=== PATIENT | female | born 1990 | race Caucasian/White ===

== ENCOUNTER 2018-09-02 12:42 | Emergency (ER) | payer MEDICAID, SELFPAY ==
[2018-09-02 12:42] VITALS: BP 124/88; PULSE 102; RESP 19; TEMP 36.6; O2SAT 99; BMI 19.9
--- NOTE | 2018-09-02 13:06 | EKG12_ITS ---
Test Reason : SOB Blood Pressure : / mmHG Vent. Rate : 106 BPM Atrial Rate : 106 BPM P-R Int : 122 ms QRS Dur : 076 ms QT Int : 334 ms P-R-T Axes : 083 096 083 degrees QTc Int : 443 ms Sinus tachycardia Right atrial enlargement Rightward axis Pulmonary disease pattern Nonspecific T wave abnormality Abnormal ECG Confirmed by SARBJIT WILEY, JORGE ([id number]), editorial intern DEVANG SAN ([id number]) on 09/04/2018 9:19:15 AM Referred By: LENORE Confirmed By:JORGE SCHAFFER MD
[2018-09-02] MEDS: Ketorolac 30 MG/ML Syringe IV (13:34)
[2018-09-02] MEDS: 0.9% Normal Saline 1,000 ML 1000 ML IV (13:34)
[2018-09-02] MEDS: Ondansetron 4 MG/2 ML Vial IV (13:34)
[2018-09-02] MEDS: Mag Hydrox/Al Hydrox/Simeth 30 ML UDC PO (13:34)
[2018-09-02 13:35] VITALS: O2SAT 97
--- NOTE | 2018-09-02 13:40 | RAD_ITS ---
STUDY: X-RAY CHEST REASON FOR EXAM: Female, 27 years old. Shortness of breath. TECHNIQUE: Single AP portable view of the chest. COMPARISON: Comparison is made with prior study dated November 16, 2012. FINDINGS: EKG electrodes are seen. The lungs are clear and expanded. There is no demonstrated pleural abnormality. Normal size heart. Normal mediastinum and adolfo. Normal visualized pulmonary arteries. Normal visualized aortic arch and descending thoracic aorta. Normal visualized thoracic spine. Normal visualized ribs, clavicles, and shoulders. There is no demonstrated abnormality of the visualized soft tissue structures of the upper abdomen. RAD/Chest 1 View (Portable) IMPRESSION: Normal x-ray examination of the chest. Electronically Signed: Xavi Ragland, at 14:09 EDT , Service support ,
[2018-09-02 13:42] LABS: Absolute Lymphocyte Count 2.06 X10^3/ul (0.83-4.51); Absolute Neutrophil Count 5.8 X10^3/uL (2.0-7.7); Basophil# 0.07 X10^3/uL; Basophil% 0.8 % (0-1); Eosinophil# 0.47 X10^3/uL; Eosinophils% 5.2 % (0-5); Hematocrit 38.5 % (37-47); Lymphocyte # 2.06 X10^3/ul (4.0); Lymphocyte % 22.9 % (19-41); Mean Corp Hgb Conc 33.8 g/gl (32-36); Mean Corpuscular Hgb 29.3 pg (27.0-32.0); Mean Corpuscular Volume 86.7 fL (81-99); Mean Platelet Vol. 9.8 fl (6.2-12.0); Monocyte# 0.58 X10^3/uL; Monocyte% 6.5 % (0-10); Neutrophil # 5.79 X10^3/uL (2.7-7.7); Neutrophil % 64.5 % (47-70); Platelet Count 394 K/mm3 (150-450); RBC Distribution Width CV 12.9 % (11.6-14.6); RBC Distribution Width SD 41.2 fl (35.1-43.9); Red Blood Count 4.44 M/mm3 (4.2-5.4)
[2018-09-02 13:43] LABS: POSITIVE COUNT NO; POSITIVE DIFFERENTIAL NO; POSITIVE MORPHOLOGY NO
[2018-09-02 13:55] LABS: Anion Gap 4 (5-15); BUN 11 mg/dL (7-18); BUN/Creat Ratio 11.9 RATIO (10-20); Calcium,Total 8.6 mg/dL (8.5-10.1); Chloride 110 mmol/L (98-107); Creatinine, Serum 0.93 mg/dL (0.55-1.02); EST Glomerular Filtration Rate 76 mL/min (>60); Est Glom Filt Rate - Afr Amer 91 mL/min (>60); Estimated Creatinine Clearance 69.67 ml/min; Glucose 108 mg/dL (74-106); Potassium 3.7 mmol/L (3.5-5.1); Sodium Level 140 mmol/L (136-145)
[2018-09-02 13:57] LABS: Internal QC Validated? YES +Cl - CLEAR BKGD; Pregnancy, Serum, hCG Quali. NEGATIVE Negative
--- NOTE | 2018-09-02 14:20 | ED.VISSUMM ---
- ER Visit Summary Date of Service: 09/02/18 Chief Complaint: Shortness of breath History of Present Illness: The patient is a 27 F with no primary care physician. She reports that approximately 12 hours ago she hiccuped and since then has been belching constantly. She reports that she is mildly short of breath from this. She also reports she has a burning chest pain for the past 4 hours that is constant. It is 10 out of 10 worsening of 10 currently. Is worsened by nothing relieved by nothing. She is never had anything like this before. Physical Examination: Vitals: Stable. Afebrile. General: Well-nourished and well-developed. Head: Normocephalic atraumatic. Neck: Supple, no lymphadenopathy. No JVD. Nontender. Cardiovascular: Regular rate and rhythm. No murmurs. Respiratory: No respiratory distress. Clear to auscultation bilaterally. Abdominal: Soft, nontender, nondistended, normal bowel sounds. No guarding, rebound, or peritoneal signs. Back: Nontender. Extremities: Nontender, no edema. Skin: Normal color, no rash. Neurologic: Alert and oriented ?3. Cranial nerves II through XII are intact. Normal strength and sensation. Psych: Normal affect. Test Results: EKG sinus tach [address] changes. CBC shows eosinophils of 5.2. Chem-7 shows a chloride of 110 and glucose 108. Patency test is negative. Chest x-ray is normal. Emergency Department Course and Treatment: While in the room with the patient she is frequently swallowing air and burping. I gave her Toradol and Zofran IV and a GI cocktail p.o. with no relief. She was given Thorazine and Benadryl IV. She is now resting comfortably. Treatment Plan: Patient be discharged instructions follow-up Dr. Montalvo in 1 to 2 days if not improving. Return to the emergency department for any worsening symptoms. Disposition: To home in improved and stable condition. Impression: 1. Repeated burping, uncertain cause. This note was generated with [employer] dictation software. It may contain incorrect words, spelling, and punctuation that were not noted in review of the chart prior to signing ED Disposition - Plan for ED Patient: Disposition: Home or Assisted Living Instructions: ED Gas Bloating Referrals: Franklin Moulton MD [STAFF PHYSICIAN] - 1-2 Days if not improving
[2018-09-02 14:35] VITALS: BP 137/80; PULSE 84; RESP 26; O2SAT 98
[2018-09-02 15:14] VITALS: BP 114/67; PULSE 90; RESP 17; O2SAT 100
[2018-09-02 15:41] VITALS: BP 108/64; PULSE 95; RESP 15; O2SAT 98
--- NOTE | 2018-09-02 15:41 | ED.RN ---
PT GIVEN WRITTEN AND VERBAL DISCHARGE INSTRUCTIONS.EDUCATED ON DIETARY CHANGES TO AVOID GAS. PT VERBALIZES UNDERSTANDING AND DENIES ANY FURTHER QUESTIONS. PT IV D/C AND OVERED WITH 2X2 GAUZE AND PAPER TAPE. PT DROWSY BUT REFUSES WHEELCHAIR. HE ASSISTS PT IN DRESSING.
== END 2018-09-02 15:55 | disposition home or self-care (01) ==
LOC: ED 13:36
PROVIDERS: Emergency Provider Emergency Medicine
DX: R14.2 Eructation (principal); R07.9 Chest pain, unspecified; R11.0 Nausea; R06.00 Dyspnea, unspecified; F17.210 Nicotine dependence, cigarettes, uncomplicated
CPT/HCPCS: 71045; 80048; 84703; 85025; 93005; 96361; 96374; 96375; 99283; J7030; A4216; J2405; J3490

== ENCOUNTER 2018-09-14 14:54 | Emergency (ER) | payer MEDICAID, SELFPAY ==
[2018-09-14] VITALS (7 sets, daily range): BP systolic 112–131; BP diastolic 65–76; PULSE 78–100; RESP 14–18; TEMP 36; O2SAT 96–100; BMI 19.5
[2018-09-14] MEDS: LORazepam 1 MG Tablet PO (16:10)
[2018-09-14 16:22] LABS: Absolute Lymphocyte Count 1.89 X10^3/ul (0.83-4.51); Absolute Neutrophil Count 9.8 X10^3/uL (2.0-7.7); Basophil# 0.06 X10^3/uL; Basophil% 0.5 % (0-1); Eosinophil# 0.34 X10^3/uL; Eosinophils% 2.7 % (0-5); Hematocrit 37.5 % (37-47); Hemoglobin 12.7 g/dl (12.0-15.0); Lymphocyte # 1.89 X10^3/ul (4.0); Mean Corp Hgb Conc 33.9 g/gl (32-36); Mean Corpuscular Hgb 29.3 pg (27.0-32.0); Mean Corpuscular Volume 86.4 fL (81-99); Mean Platelet Vol. 10.2 fl (6.2-12.0); Monocyte# 0.54 X10^3/uL; Monocyte% 4.3 % (0-10); Neutrophil # 9.79 X10^3/uL (2.7-7.7); Neutrophil % 77.3 % (47-70); POSITIVE COUNT NO; POSITIVE DIFFERENTIAL NO; POSITIVE MORPHOLOGY NO; Platelet Count 329 K/mm3 (150-450); RBC Distribution Width CV 13.1 % (11.6-14.6); RBC Distribution Width SD 41.8 fl (35.1-43.9); Red Blood Count 4.34 M/mm3 (4.2-5.4); White Blood Count 12.6 K/mm3 (4.4-11.0)
[2018-09-14 16:23] LABS: Anion Gap 8 (5-15); BUN 9 mg/dL (7-18); BUN/Creat Ratio 9.7 RATIO (10-20); Calcium,Total 8.8 mg/dL (8.5-10.1); Chloride 106 mmol/L (98-107); Creatinine, Serum 0.93 mg/dL (0.55-1.02); EST Glomerular Filtration Rate 75 mL/min (>60); Est Glom Filt Rate - Afr Amer 91 mL/min (>60); Estimated Creatinine Clearance 68.39 ml/min; Glucose 83 mg/dL (74-106); Potassium 3.3 mmol/L (3.5-5.1); Sodium Level 140 mmol/L (136-145)
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
[2018-09-14 17:28] LABS: Internal QC Validated? YES +Cl - CLEAR BKGD; Pregnancy, Serum, hCG Quali. NEGATIVE Negative
--- NOTE | 2018-09-14 19:00 | CM.ED ---
Social Work Telephone call from [place] [facility], Patient has been accepted. Notified Dr. De Paz and GUILLERMINA Mendieta. Dr. De Paz completing [facility] at this time. Will fax [facility] when obtained. Lise HUNT, JULIA
--- NOTE | 2018-09-14 19:03 | CM.ED ---
Social Work Attempted to notify patient of plan and transition to [facility], Patient sleeping and unable to be aroused at this time. Lise Santana MSW, JULIA
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
--- NOTE | 2018-09-14 19:19 | ED.RN ---
Attempted to call report no one available at this time.
--- NOTE | 2018-09-14 19:47 | ED.RN ---
CALLED [facility], RUDDY CAREY ACCPETED AND GAVE AN ETA OF [id number] 09/15/18
--- NOTE | 2018-09-14 19:52 | CM.ED ---
Social Work Needed clinical information faxed along with pink slip to [facility]. Lise Santana MSW, JULIA
--- NOTE | 2018-09-14 19:58 | CM.ED ---
Social Work Attempted to updated patient. Patient now awake. This medical social worker updating patient on plan for patient to transition to [facility]. Patient voicing understanding and agreeable to plan. GILBERT Akbar, JULIA
[2018-09-14 20:02] LABS: Amphetamine Urine VISTA POSITIVE (<1000 ng/mL); Barbiturate Urine VISTA NEGATIVE (< 200 ng/mL); Benzodiazepine Urine VISTA NEGATIVE (< 200 ng/mL); Cocaine Urine VISTA NEGATIVE (< 300 ng/mL); Ecstacy Urine VISTA NEGATIVE (< 500 ng/mL); Methadone Urine VISTA NEGATIVE (< 300 ng/mL); PCP Urine VISTA NEGATIVE (< 25 ng/mL); THC Urine VISTA POSITIVE (< 50 ng/mL); Vista UDS pH Range 6
[2018-09-15] VITALS (8 sets, daily range): BP systolic 108–114; BP diastolic 67–78; PULSE 68–79; RESP 14–17; O2SAT 96–98
== END 2018-09-15 08:41 ==
LOC: ED 16:02
PROVIDERS: Emergency Provider Emergency Medicine
DX: R45.851 Suicidal ideations (principal); F41.9 Anxiety disorder, unspecified; F32.9 Major depressive disorder, single episode, unspecified; F12.90 Cannabis use, unspecified, uncomplicated; Z72.0 Tobacco use
CPT/HCPCS: 80048; 80307; 80320; 84703; 85025; 99284; G0480

== ENCOUNTER 2019-08-18 00:53 | Emergency (ER) | payer MEDICAID, SELFPAY ==
[2018-09-14 14:58] VITALS: BMI 19.5
[2019-08-18 00:54] VITALS: BP 123/87; PULSE 82; RESP 18; TEMP 36.9; O2SAT 98; BMI 21.0
--- NOTE | 2019-08-18 01:03 | CT_ITS ---
STUDY: CT ABDOMEN AND PELVIS WITHOUT CONTRAST REASON FOR EXAM: Female, 28 years old. Left flank pain. History of kidney stones. History of cervical cancer. RADIATION DOSAGE (If Supplied By Facility): CTDIvol = ( 6.05 ) mGy, DLP = ( 272.16 ) mGycm TECHNIQUE: Transaxial images were obtained from the dome of the diaphragm to the symphysis pubis without oral contrast, and without intravenous contrast. Sagittal and coronal images were reconstructed. Individualized dose optimization techniques were used for this CT. COMPARISON: May 05, 2012. FINDINGS: The visualized lung bases are unremarkable. The visualized portions of the heart are within normal limits. Normal liver. Normal gallbladder and extrahepatic biliary system. Normal spleen. Normal pancreas. Normal bilateral adrenal glands. Normal right kidney. 2 mm x 2 mm nonobstructing inferior pole left renal calculus. Normal visualized stomach. Normal small intestine. Portions of the descending colon not well distended limiting evaluation. The appendix is well visualized and appears normal. Normal abdominal aorta. Normal inferior vena cava. Normal retroperitoneum. No intra-abdominal free air. Normal urinary bladder. IUD centrally located within the uterus. Limited evaluation of the cervix on this noncontrast enhanced study. No adnexal masses seen. Normal abdominal wall. Normal osseous structures. CT/Abdomen/Pelvis without Cont IMPRESSION: Small nonobstructing left renal calculus. No evidence of bowel obstruction. Limited evaluation of the descending colon. Electronically Signed: Maximo Bess MD at 2:19 EDT , Service support ,
--- NOTE | 2019-08-18 01:03 | ED.VIS.GEN ---
History of Present Illness Chief Complaint: Flank Pain Narrative: Patient is a 28-year-old female who presents with left flank pain. It is been present for 1 day and gradually been worsening. She now complains of severe cramping pain in the left lower back. This does radiate around to the flank. She has a history of prior kidney stones. She states she vomited once due to pain. No dysuria frequency urgency. Her pain is worse with palpation or certain movements. She otherwise denies any recent illness. No fevers. Past Medical History - Allergies and Home Meds Allergies/Adverse Reactions: Allergies No Known Allergies Allergy (Verified 08/18/19 00:54) Primary Care Physician: Care Physician,No Primary [Primary Care Provider] - Past Medical History: - - Depression and anxiety Smoking Status: Current every day smoker Review of Systems All systems negative except as indicated General: Denies: Fever Eyes: Denies: Visual changes - bilaterally ENT: Denies: Bilateral ear pain Cardiovascular: Denies: Chest pain Respiratory: Denies: Dyspnea Gastrointestinal: Reports: Abdominal pain, Nausea, Vomiting Genitourinary: Denies: Dysuria, Hematuria, Frequency Musculoskeletal: Reports: Back pain Skin: Denies: Rash Neurological: Denies: Headache Hematologic: Denies: Easy bleeding Allergy: Denies: Uticaria Physical Exam Vital Signs/Narrative: Vital Signs Temp Pulse Resp BP Pulse Ox 08/18/19 00:54 98.5 F 82 18 123/87 H 98 Inital Vital Signs reviewed: Yes General: Well nourished, Well developed Head: Normocephalic Eyes: EOMI ENT: Moist mucous membranes Neck: Supple Cardiovascular: Regular rate, Regular rhythm Respiratory: No distress, CTA bilaterally Abdomen: Soft, Nontender, Nondistended Back: CVA tenderness - Left CVA tenderness Skin: Normal color Neurological: Alert Psychological: Normal affect Diagnostic/Tx/Re-eval Impressions Abdomen/Pelvis CT 08/18/19 01:03 IMPRESSION: Small nonobstructing left renal calculus. No evidence of bowel obstruction. Limited evaluation of the descending colon. Electronically Signed: Maximo Bess MD at 2:19 EDT , Service support , 08/18/19 01:03 Abdomen/Pelvis without Cont [CT] Stat Laboratory Results 08/18/19 08/18/19 08/18/19 00:58 00:58 01:20 WBC 19.8 H RBC 3.95 L Hgb 11.9 L Hct 36.1 L MCV 91.4 MCH 30.1 MCHC 33.0 RDW Std Deviation 43.2 RDW Coeff of [place] 13.1 Plt Count 320 MPV 10.4 Immature Gran % (Auto) 0.400 Neut % (Auto) 75.1 H Lymph % (Auto) 14.3 L [place] % (Auto) 5.4 Eos % (Auto) 4.3 Baso % (Auto) 0.5 Absolute Neuts (auto) 14.9 H Absolute Lymphs (auto) 2.84 Nucleated RBC % 0 Sodium Potassium Chloride Carbon Dioxide Anion Gap BUN Creatinine Estim Creat Clear Calc Est GFR (MDRD) Af Amer Est GFR (MDRD) Non-Af BUN/Creatinine Ratio Glucose Calcium Urine Color Yellow Urine Clarity Clear Urine pH 6.0 Ur Specific [place] 1.015 Urine Protein Negative Urine Glucose (UA) Normal Urine Ketones Negative Urine Occult Blood 10 H Urine Nitrite Negative Urine Bilirubin Negative Urine Urobilinogen Normal Ur Leukocyte Esterase 25 H Urine RBC 0-5 SEEN Urine WBC 0-5 SEEN Ur Squamous Epith Cells 0-5 SEEN Urine Bacteria 0 SEEN Urine Mucus 0 SEEN Urine Test Negative 08/18/19 01:20 WBC RBC Hgb Hct MCV MCH MCHC RDW Std Deviation RDW Coeff of [place] Plt Count MPV Immature Gran % (Auto) Neut % (Auto) Lymph % (Auto) [place] % (Auto) Eos % (Auto) Baso % (Auto) Absolute Neuts (auto) Absolute Lymphs (auto) Nucleated RBC % Sodium 142 Potassium 3.7 Chloride 109 H Carbon Dioxide 24.0 Anion Gap 9 BUN 9 Creatinine 0.88 Estim Creat Clear Calc 73.93 Est GFR (MDRD) Af Amer 97 Est GFR (MDRD) Non-Af 80 BUN/Creatinine Ratio 10.3 Glucose 98 Calcium 9.0 Urine Color Urine Clarity Urine pH Ur Specific [place] Urine Protein Urine Glucose (UA) Urine Ketones Urine Occult Blood Urine Nitrite Urine Bilirubin Urine Urobilinogen Ur Leukocyte Esterase Urine RBC Urine WBC Ur Squamous Epith Cells Urine Bacteria Urine Mucus Urine Test - Medical Decision Making Patient was given IV fluids, Toradol, Zofran. Labs as above notable for white blood cell count 19.[address] of the abdomen and pelvis is unremarkable. Although the patient does have leukocytosis she does not appear to have any acute infectious or surgical pathology on imaging or laboratory studies. Review of prior records show that she is often had a leukocytosis. She was advised to follow-up with her primary care physician. She has no fever or tachycardia. She is not ill-appearing. However she was advised on specific signs and symptoms to monitor for and understands return for new or worsening symptoms. Patient agreeable to this plan. Patient discharged. ED Disposition - Plan for ED Patient: Disposition: Home or Assisted Living Diagnosis: Left flank pain, Leukocytosis Instructions: ED Flank Pain Uncertain Cause Referrals: Care Physician,No Primary [Primary Care Provider] -
[2019-08-18 01:04] LABS: Bacteria 0 SEEN /hpf (None Seen); Color, Urine Yellow (Yellow); Glucose, Dipstick Normal (Normal); Ketone-Dipstick Negative (Negative); Leukocyte Esterase-Dipstick 25 /ul (Negative); Mucous, Urine 0 SEEN /hpf (<or=2+); Nitrite-Dipstick Negative (Negative); Occult Blood-Urine 10 /ul (Negative); Protein-Dipstick Negative (Negative); Specific Gravity, Urine 1.015 (1.002-1.030); Urine Bilirubin Dipstick Negative (Negative); Urine Clarity Clear (Clear); Urine Urobilinogen Normal (Normal)
[2019-08-18 01:07] LABS: Internal QC Validated? YES +Cl - CLEAR BKGD; Pregnancy, Urine Negative Negative
[2019-08-18 01:15] LABS: Red Blood Cells-Urine 0-5 SEEN /hpf (0-5); Squamous Epithelial Cells - UA 0-5 SEEN /hpf (5-10); White Blood Cells 0-5 SEEN /hpf (0-5)
[2019-08-18] MEDS: Ketorolac 30 MG/ML Syringe IV (01:19)
[2019-08-18] MEDS: Ondansetron 4 MG/2 ML Vial IV (01:19)
[2019-08-18 01:26] LABS: Absolute Lymphocyte Count 2.84 X10^3/uL (0.83-4.51); Absolute Neutrophil Count 14.9 X10^3/uL (2.0-7.7); Basophil% 0.5 % (0-1); Eosinophil# 0.85 X10^3/uL; Eosinophils% 4.3 % (0-5); Hematocrit 36.1 % (37-47); Hemoglobin 11.9 g/dL (12.0-15.0); Lymphocyte # 2.84 X10^3/ul (4.0); Lymphocyte % 14.3 % (19-41); Mean Corpuscular Hgb 30.1 pg (27.0-32.0); Mean Corpuscular Volume 91.4 fL (81-99); Mean Platelet Vol. 10.4 fl (6.2-12.0); Monocyte# 1.07 X10^3/uL; Monocyte% 5.4 % (0-10); NRBC Flagged by Analyzer 0 % (0-5); Neutrophil % 75.1 % (47-70); Platelet Count 320 K/mm3 (150-450); RBC Distribution Width CV 13.1 % (11.6-14.6); RBC Distribution Width SD 43.2 fl (35.1-43.9); Red Blood Count 3.95 M/mm3 (4.2-5.4); White Blood Count 19.8 K/mm3 (4.4-11.0)
[2019-08-18 01:40] LABS: Anion Gap 9 (5-15); BUN 9 mg/dL (7-18); BUN/Creat Ratio 10.3 RATIO (10-20); Chloride 109 mmol/L (98-107); Creatinine, Serum 0.88 mg/dL (0.55-1.02); EST Glomerular Filtration Rate 80 mL/min (>60); Est Glom Filt Rate - Afr Amer 97 mL/min (>60); Estimated Creatinine Clearance 73.93 ml/min; Glucose 98 mg/dL (74-106); Potassium 3.7 mmol/L (3.5-5.1); Sodium Level 142 mmol/L (136-145)
[2019-08-18 02:34] VITALS: BP 98/52; PULSE 57; RESP 16; O2SAT 99
== END 2019-08-18 02:40 | disposition home or self-care (01) ==
PROVIDERS: Emergency Provider Emergency Medicine
DX: R10.9 Unspecified abdominal pain (principal); D72.829 Elevated white blood cell count, unspecified; F17.200 Nicotine dependence, unspecified, uncomplicated; F32.9 Major depressive disorder, single episode, unspecified
CPT/HCPCS: 74176; 80048; 81001; 81025; 85025; 99283; A4216; J2405

== ENCOUNTER → 2019-12-17 21:12 | Outpatient (CLI) | payer MEDICAID, SELFPAY | PROVIDERS: Referring Provider Family Medicine; Visit Provider Family Medicine | DX: Z20.828 Contact with and (suspected) exposure to other viral communicable diseases (principal) | CPT/HCPCS: 87635; U0003 ==

== ENCOUNTER → 2020-01-05 13:00 | Outpatient (CLI) | payer MEDICAID, SELFPAY | PROVIDERS: Referring Provider Family Medicine; Visit Provider Family Medicine | DX: Z03.818 Encounter for observation for suspected exposure to other biological agents ruled out (principal) | CPT/HCPCS: 87635; U0003 ==

== ENCOUNTER 2020-06-14 17:26 | Emergency (ER) | payer MEDICAID, SELFPAY ==
[2020-06-14 17:28] VITALS: BP 117/62; PULSE 69; RESP 14; TEMP 36.9; O2SAT 99; BMI 22.4
[2020-06-14 18:55] VITALS: BP 112/74; PULSE 75; RESP 14; O2SAT 99
[2020-06-14] MEDS: Lidocaine 1% (20 ml mdv) 20 ML Vial INFILT (18:59)
--- NOTE | 2020-06-14 19:01 | ED.DCSUM_ITS ---
History of Present Illness Chief Complaint: Abscess Informant: Patient Onset: Days - Onset 2 to 3 days ago Context: Sudden Onset Timing: Continuous Quality: Pain, swelling and redness Location: Right buttocks Current Severity: Mild Maximum Severity: Moderate Worsened by: Sitting Relieved by: Nothing Associated Symptoms: No systemic symptoms Narrative: Mitesh is a 29-year-old woman who presents with abscess to right buttocks. She denies history diabetes. She is not immune suppressed. She has no traumatic fever, heart murmur mitral prolapse. She denies IV drug use. She denies prior history of abscess. She denies fever, chills night sweats. She is not attempted to drain the area. There is no history of inflammatory bowel disorder. Prior similar symptoms: No Recent Illness/Hospitalization: No - Past Medical History (1) No significant past medical history Status: Acute Past Medical History - Allergies and Home Meds Allergies/Adverse Reactions: Allergies No Known Allergies Allergy (Verified 06/14/20 17:27) Primary Care Physician: Care Physician,No Primary [Primary Care Provider] - Prior records reviewed: No Past Medical History: None Surgical History: no surgical history Lives: Spouse/ Significant Other Smoking Status: Current every day smoker Alcohol: Rare Drugs: None Review of Systems General: Denies: Chills, Fever, Malaise, Sweats ENT: Denies: Bilateral ear pain, Rhinorrhea, Sore throat Cardiovascular: Denies: Chest pain, Palpitations, Heart racing Respiratory: Denies: Dyspnea, Cough, Dyspnea on exertion Gastrointestinal: Denies: Abdominal pain, Nausea, Vomiting Musculoskeletal: Denies: Myalgias, Arthralgias, Neck pain, Back pain, Swelling Skin: Reports: Rash, Abscess Endocrine: Denies: Polyuria, Polydipsia Hematologic: Denies: Easy bruising, Easy bleeding Physical Exam Vital Signs/Narrative: Vital Signs Temp Pulse Resp BP Pulse Ox 06/14/20 18:55 75 14 112/74 99 06/14/20 17:28 98.5 F 69 14 117/62 99 Inital Vital Signs reviewed: Yes General: Well nourished, Well developed, No Acute Distress Head: Normocephalic, Atraumatic Eyes: Perrl, EOMI ENT: Moist mucous membranes Neck: Supple, Nontender, No lymphadenopathy, No JVD Cardiovascular: Regular rate, Regular rhythm, No murmurs, Normal S1, Normal S2 Respiratory: No distress, CTA bilaterally, Chest nontender Rectal: Deferred, - - Does have abscess right buttocks with cellulitis. Diameter is 4 to 5 cm. Back: Nontender, Normal Inspection Extremities: Nontender, No edema Skin: Normal color, No Trauma, Rash. Negative for: Cyanosis, Diaphoresis, Jaundice Neurological: Alert, Oriented x3, Cranial nerves II-XII grossly intact, Normal Strength, Normal Sensation Psychological: Normal affect, Normal Mood Diagnostic/Tx/Re-eval - Medical Decision Making Has what appears to be cellulitis with subcutaneous abscess right buttocks. Patient was informed treatment is incision and drainage. She has been consented. Risk benefits were explained to her. Procedures Procedure(s): Was consented for I&D of right buttocks abscess. Patient was prepped draped sterile manner. The area was Nestabs by local filtration and f ield block. Incision was made with a 10 blade. A 1 cm incision was made. Blunt dissection undertaken with approximately 2 to 3 cc of purulent material noted. Cavity was irrigated. Wick was placed. There is still evidence of surrounding cellulitis. Will treat with p.o. antibiotics. ED Disposition - Plan for ED Patient: Disposition: Home or Assisted Living Diagnosis: Cellulitis and abscess of buttock Instructions: ED Abscess Incision And Drainage, ED Cellulitis Prescriptions: Doxycycline 100 mg PO BID #14 capsule Transmission Status: Pending to [facility] Referrals: Care Physician,No Primary [Primary Care Provider] - Dayanara Diez MD [STAFF PHYSICIAN] - 2 Days for wound check
[2020-06-14 19:23] VITALS: RESP 16
== END 2020-06-14 19:57 | disposition home or self-care (01) ==
PROVIDERS: Emergency Provider Emergency Medicine
DX: L03.317 Cellulitis of buttock (principal); L02.31 Cutaneous abscess of buttock; F17.200 Nicotine dependence, unspecified, uncomplicated
CPT/HCPCS: 10060; 99282

== ENCOUNTER 2021-01-25 10:36 | Emergency (ER) | payer MEDICAID, SELFPAY ==
[2021-01-25 10:37] VITALS: BP 109/61; PULSE 78; RESP 16; TEMP 36.7; O2SAT 98; BMI 24.7
--- NOTE | 2021-01-25 10:53 | RAD_ITS ---
STUDY: X-RAY CHEST REASON FOR EXAM: Female, 30 years old. Chest pain TECHNIQUE: Single AP portable view of the chest. COMPARISON: Comparison is made with prior study dated 09/02/2018. FINDINGS: Hyperinflation. The lungs are clear. There is no demonstrated pleural abnormality. Normal size heart. Normal mediastinum and adolfo. Normal visualized pulmonary arteries. Normal visualized aortic arch and descending thoracic aorta. Normal visualized thoracic spine. Normal visualized ribs, clavicles, and shoulders. There is no demonstrated abnormality of the visualized soft tissue structures of the upper abdomen. RAD/Chest 1 View (Portable) IMPRESSION: Hyperinflation. Electronically Signed: Xavi Ragland MD at 11:54 EDT , Service support ,
--- NOTE | 2021-01-25 10:54 | EKG12_ITS ---
Test Reason : Blood Pressure : / mmHG Vent. Rate : 070 BPM Atrial Rate : 070 BPM P-R Int : 108 ms QRS Dur : 078 ms QT Int : 402 ms P-R-T Axes : 073 085 044 degrees QTc Int : 434 ms Sinus rhythm with short KS Low voltage QRS Borderline ECG Confirmed by PHI WILEY, AMANDO ([id number]), subeditor RIZWANA VINES ([id number]) on 01/29/2021 10:13:59 A M Referred By: RAFFI Confirmed By:ANISA YIP MD
--- NOTE | 2021-01-25 10:55 | EX.ED.DYSGE1 ---
HPI History of Present Illness Chief Complaint: Nausea/Vomiting Informant: patient Narrative Narrative: 30-year-old female presents the emergency department with chest pain nausea and vomiting at 22 weeks gestation with twins. She denies any fevers. She notes that she has a slight cough and mild rhinorrhea that began this morning. No diarrhea. No fevers. She sees Dr. Hurley for obstetrics. She denies any significant leg swelling. There is no been any reported complications with this . She describes the pain as sharp and over the left side of her chest. Seems to be worse with dry heaving and cough. She states it feels different than her acid reflux which she had yesterday which was more towards the center of her chest she reports feeling nauseated most of the morning PFSH PFSH Home Medications doxycycline monohydrate 100 mg PO BID #14 capsule 06/14/20 [Rx Last Taken Unknown] ondansetron 4 mg PO Q6H PRN PRN #15 tab 01/25/21 [Rx Last Taken Unknown] Allergy/AdvReac Type Severity Reaction Status Date / Time No Known Allergies Allergy Verified 01/25/21 10:37 Social History (Updated 01/25/21 @ 10:[address] Ronny Crews, DO) Smoking Status: Former smoker substance use type: does not use ROS ROS ED Constitutional Constitutional ED: Denies chills, fever(s) or weight loss Eyes Eyes: Denies change in vision or diplopia ENT ENT ED: Reports rhinorrhea; Denies ear pain or sore throat Cardiovascular Cardiovascular: Reports chest pain; Denies orthopnea, palpitations or racing heartbeat Respiratory/Chest Respiratory/Chest: Reports cough; Denies dyspnea or orthopnea Gastrointestinal Gastrointestinal: Reports nausea and vomiting; Denies abdominal pain or diarrhea Genitourinary Genitourinary ED: Denies dysuria, hematuria or urinary frequency Musculoskeletal Musculoskeletal: Denies arthralgias or myalgias Integumentary Denies abscess or rash Neurologic Neurologic: Denies headache(s) or weakness Psychiatric Psychiatric: Denies anxiety, depression, suicidal ideation or suicidal thoughts Endocrine Endocrinology: Denies polydipsia, polyphagia or polyuria Allergic/Immunologic Allergic/Immunologic ED: Denies mouth swelling, tongue swelling or urticaria EXAM Physical Exam Const Vital Signs: 01/25/21 10:37 01/25/21 12:11 01/25/21 12:14 Temperature 98.1 F Temperature Source Temporal Pulse Rate 78 63 Respiratory Rate 16 17 Blood Pressure 109/61 89/57 L 92/51 L Blood Pressure Mean 77 67 64 Pulse Ox 98 97 Oxygen Delivery Method Room Air Room Air 01/25/21 13:23 Temperature Temperature Source Pulse Rate 68 Respiratory Rate 20 H Blood Pressure 99/57 L Blood Pressure Mean 71 Pulse Ox 100 Oxygen Delivery Method Room Air Positive well nourished and well developed General Appearance ED: well developed HEENT Reports normocephalic, head/scalp atraumatic, TM's clear and moist mucous membranes Negative for trauma Tympanic Membrane ED: Yes TM's clear Eyes PERRL and EOMs intact bilaterally Neck no lymphadenopathy, supple and no JVD Chest Wall Chest Narrative: Tender palpation left anterior chest wall Resp normal respiratory effort and clear to auscultation bilaterally Cardio regular rate, regular rhythm and no murmurs GI normal to inspection, nondistended, normoactive bowel sounds and non-tender Palpation: soft Back/Spine no CVA tenderness and normal ROM Extremity normal to inspection General Extremety ED: Negative for edema General Extremity: Negative for edema Neuro oriented x3 and CN's II-XII intact bilaterally Sensorium / Orientation: alert Motor Exam: strength 5/5 throughout Psych mental status grossly normal Mood & Affect: Negative for depressed or tearful Skin no rashes or lesions noted and no wounds MDM MDM MDM Narrative Medical decision making narrative: Patient received IV fluids and Zofran. Hemoglobin 10.5 white count 9.9. Troponin was 3. EKG is normal sinus rhythm. CMP negative. Urinalysis very minimal ketones and no obvious infection. Patient is feeling better on repeat examination I do not think that she has PE. Do not think she has dissection. I do not see evidence of ACS. Patient will be discharged home Lab Data Attestation: I reviewed the patient's lab results. Labs: Laboratory Results - last 24 hr 01/25/21 01/25/21 01/25/21 11:00 11:00 11:00 WBC 9.9 RBC 3.51 L Hgb 10.5 L Hct 31.5 L MCV 89.7 MCH 29.9 MCHC 33.3 RDW Std Deviation 42.8 RDW Coeff of Sterling 13.1 Plt Count 268 MPV 10.8 Immature Gran % (Auto) 0.500 Neut % (Auto) 77.6 H Lymph % (Auto) 14.9 L Baker % (Auto) 5.5 Eos % (Auto) 1.0 Baso % (Auto) 0.5 Absolute Neuts (auto) 7.7 Absolute Lymphs (auto) 1.48 Nucleated RBC % 0 Sodium 138 Potassium 3.8 Chloride 106 Carbon Dioxide 23.0 Anion Gap 9 BUN 6 L Creatinine 0.58 Estim Creat Clear Calc 110.13 Est GFR (MDRD) Af Amer 153 Est GFR (MDRD) Non-Af 127 BUN/Creatinine Ratio 10.3 Glucose 82 Calcium 8.4 L Total Bilirubin 0.40 AST 13 L ALT 10 L Alkaline Phosphatase 50 Troponin I High Sens 3 Total Protein 6.7 Albumin 2.9 L Globulin 3.8 Albumin/Globulin Ratio 0.8 L Lipase 69 L Urine Color Urine Clarity Urine pH Ur Specific [place] Urine Protein Urine Glucose (UA) Urine Ketones Urine Occult Blood Urine Nitrite Urine Bilirubin Urine Urobilinogen Ur Leukocyte Esterase Urine RBC Urine WBC Ur Squamous Epith Cells Urine Bacteria Urine Mucus 01/25/21 11:15 WBC RBC Hgb Hct MCV MCH MCHC RDW Std Deviation RDW Coeff of Sterling Plt Count MPV Immature Gran % (Auto) Neut % (Auto) Lymph % (Auto) Baker % (Auto) Eos % (Auto) Baso % (Auto) Absolute Neuts (auto) Absolute Lymphs (auto) Nucleated RBC % Sodium Potassium Chloride Carbon Dioxide Anion Gap BUN Creatinine Estim Creat Clear Calc Est GFR (MDRD) Af Amer Est GFR (MDRD) Non-Af BUN/Creatinine Ratio Glucose Calcium Total Bilirubin AST ALT Alkaline Phosphatase Troponin I High Sens Total Protein Albumin Globulin Albumin/Globulin Ratio Lipase Urine Color Straw Urine Clarity Clear Urine pH 7.0 Ur Specific [place] 1.010 Urine Protein Negative Urine Glucose (UA) Normal Urine Ketones 5 H Urine Occult Blood Negative Urine Nitrite Negative Urine Bilirubin Negative Urine Urobilinogen Normal Ur Leukocyte Esterase Negative Urine RBC 0 SEEN Urine WBC 0-5 SEEN Ur Squamous Epith Cells 0-5 SEEN Urine Bacteria 0 SEEN Urine Mucus 0 SEEN Radiography Diagnostic Testing: Clinical Impression(s) from Imaging Studies Chest X-Ray 01/25/21 10:53 IMPRESSION: Hyperinflation. Electronically Signed: Xavi Ragland MD at 11:54 EDT , Service support , Discharge Plan Triage Chief Complaint: Nausea/Vomiting ED Provider: Ronny Crews Dx/Rx/DC Orders Clinical Impression: Twin in second trimester, Vomiting, Chest pain Instructions: ED Chest Pain, Noncardiac Prescriptions: New ondansetron [ondansetron] 4 MG tablet 4 mg PO Q6H PRN PRN (Reason: Nausea) Qty: 15 RF: 0 No Action doxycycline monohydrate 100 MG capsule 100 mg PO BID Qty: 14 RF: 0 Primary Care Provider: Care Physician,No Primary Referrals: Laura Hurley MD [STAFF PHYSICIAN] - Keep [facility] appointment Care Physician,No Primary [Primary Care Provider] - Disposition Disposition: Home, Self Care
[2021-01-25 11:13] LABS: Absolute Lymphocyte Count 1.48 X10^3/uL (0.83-4.51); Absolute Neutrophil Count 7.7 X10^3/uL (2.0-7.7); Basophil# 0.05 X10^3/uL; Basophil% 0.5 % (0-1); Hematocrit 31.5 % (37-47); Hemoglobin 10.5 g/dL (12.0-15.0); Lymphocyte # 1.48 X10^3/ul (0.83-4.51); Lymphocyte % 14.9 % (19-41); Mean Corp Hgb Conc 33.3 g/dL (32-36); Mean Corpuscular Hgb 29.9 pg (27.0-32.0); Mean Corpuscular Volume 89.7 fL (81-99); Mean Platelet Vol. 10.8 fl (6.2-12.0); Monocyte# 0.55 X10^3/uL; Monocyte% 5.5 % (0-10); NRBC Flagged by Analyzer 0 % (0-5); Neutrophil # 7.69 X10^3/uL (2.7-7.7); Neutrophil % 77.6 % (47-70); Platelet Count 268 K/mm3 (150-450); RBC Distribution Width CV 13.1 % (11.6-14.6); RBC Distribution Width SD 42.8 fl (35.1-43.9); Red Blood Count 3.51 M/mm3 (4.2-5.4); White Blood Count 9.9 K/mm3 (4.4-11.0)
[2021-01-25 11:21] LABS: Bacteria 0 SEEN /hpf (None Seen); Mucous, Urine 0 SEEN /hpf (<or=2+); Red Blood Cells-Urine 0 SEEN /hpf (0-5)
[2021-01-25 11:22] LABS: Color, Urine Straw (Yellow); Glucose, Dipstick Normal (Normal); Ketone-Dipstick 5 mg/dl (Negative); Leukocyte Esterase-Dipstick Negative /ul (Negative); Nitrite-Dipstick Negative (Negative); Occult Blood-Urine Negative /ul (Negative); Protein-Dipstick Negative (Negative); Urine Bilirubin Dipstick Negative (Negative); Urine Clarity Clear (Clear); Urine Urobilinogen Normal (Normal)
[2021-01-25 11:29] LABS: ALB/GLOB Ratio 0.8 RATIO (0.9-2.4); AST(SGOT) 13 U/L (15-37); Alanine Aminotransfer ALT/SGPT 10 U/L (13-56); Albumin, Serum 2.9 g/dL (3.2-5.0); Alkaline Phosphatase 50 U/L (45-117); Anion Gap 9 (5-15); BUN 6 mg/dL (7-18); BUN/Creat Ratio 10.3 RATIO (10-20); Calcium,Total 8.4 mg/dL (8.5-10.1); Chloride 106 mmol/L (98-107); Creatinine, Serum 0.58 mg/dL (0.55-1.02); EST Glomerular Filtration Rate 127 mL/min (>60); Est Glom Filt Rate - Afr Amer 153 mL/min (>60); Estimated Creatinine Clearance 110.13 ml/min; Globulin 3.8 g/dL (2.2-4.2); Glucose 82 mg/dL (74-106); Lipase 69 U/L (73-393); Potassium 3.8 mmol/L (3.5-5.1); Protein, Total 6.7 g/dL (6.4-8.2); Sodium Level 138 mmol/L (136-145)
[2021-01-25 11:52] LABS: Squamous Epithelial Cells - UA 0-5 SEEN /hpf (5-10); White Blood Cells 0-5 SEEN /hpf (0-5)
[2021-01-25] MEDS: Ondansetron 4 MG/2 ML Vial IV (12:08)
[2021-01-25] MEDS: 0.9% Normal Saline 1,000 ML 1000 ML IV (12:08)
[2021-01-25 12:11] VITALS: BP 89/57; PULSE 63; RESP 17; O2SAT 97
[2021-01-25 12:14] VITALS: BP 92/51
[2021-01-25 13:23] VITALS: BP 99/57; PULSE 68; RESP 20; O2SAT 100
[2021-01-25 13:35] LABS: Troponin-I HS 3 pg/mL (3.0-54.0)
[2021-01-25 13:58] VITALS: BP 97/61
== END 2021-01-25 13:58 | disposition home or self-care (01) ==
PROVIDERS: Emergency Provider Emergency Medicine
DX: O21.2 Late vomiting of pregnancy (principal); O30.002 Twin pregnancy, unspecified number of placenta and unspecified number of amniotic sacs, second trimester; O99.612 Diseases of the digestive system complicating pregnancy, second trimester; K21.9 Gastro-esophageal reflux disease without esophagitis; O26.892 Other specified pregnancy related conditions, second trimester; R07.9 Chest pain, unspecified; Z87.891 Personal history of nicotine dependence; Z3A.22 22 weeks gestation of pregnancy
CPT/HCPCS: 71045; 80053; 81001; 83690; 84484; 85025; 93005; 96361; 96374; 99285; J7030; J2405

== ENCOUNTER 2021-04-04 13:46 | Outpatient (CLI) | payer MEDICAID, SELFPAY ==
[2021-04-04] MEDS: 0.9% Saline Lock 10 ML Syringe IV (13:55)
[2021-04-04 13:56] VITALS: BP 101/66; PULSE 78; RESP 14; TEMP 36.5; O2SAT 100; BMI 26.2
[2021-04-04 14:27] VITALS: BP 95/62; PULSE 73; RESP 16; TEMP 36.9; O2SAT 100
[2021-04-04 15:27] VITALS: BP 91/53; PULSE 72; RESP 16; TEMP 36.7; O2SAT 100
== END 2021-04-04 23:59 | disposition home or self-care (01) ==
LOC: MS3OUT 13:47 → MS3 13:49
PROVIDERS: Referring Provider Nurse Practitioner Adult Health; Visit Provider Nurse Practitioner Adult Health
DX: Z23 Encounter for immunization (principal); U07.1 COVID-19
CPT/HCPCS: J7050; M0245; Q0245; A4216

== ENCOUNTER 2021-04-09 11:35 | Outpatient (CLI) | payer MEDICAID, SELFPAY ==
[2021-04-09 12:04] VITALS: BP 112/61; TEMP 36.4
[2021-04-09 12:05] VITALS: PULSE 95; O2SAT 96
[2021-04-09 12:08] VITALS: BMI 26.2
[2021-04-09] MEDS: Lactated Ringers 1,000 ML 999 ML IV (13:19)
[2021-04-09] MEDS: Betamethasone/Betamethasone 30 MG/5 ML Vial 12 MG IM (13:21)
[2021-04-09 13:35] LABS: Fetal Fibronectin POSITIVE
[2021-04-09 15:23] LABS: Color, Urine Yellow (Yellow); Glucose, Dipstick Normal (Normal); Ketone-Dipstick Negative (Negative); Leukocyte Esterase-Dipstick 25 /ul (Negative); Nitrite-Dipstick Negative (Negative); Occult Blood-Urine Negative /ul (Negative); Protein-Dipstick Negative (Negative); Urine Bilirubin Dipstick Negative (Negative); Urine Clarity Sl. Cloudy (Clear); Urine Urobilinogen Normal (Normal)
[2021-04-09 15:35] LABS: Group B Strep DNA By PCR Negative (Negative); Internal Control PASS; Probe Check PASS; Specimen Processing Control PASS
--- NOTE | 2021-04-11 13:33 | OB.TRI.HP_ITS ---
HPI - General HPI Narrative LIS GALINDO, is a 30 F who presents with di di twins at 32w4d COVID positive with ctx's. She had ctx's all night that have started to space apart. No vb, lof. Good FM x 2. No COVID symptoms currently and feels well. No CP, SOB, cough, fevers. PFSH PFSH Home Medications omeprazole 20 mg PO DAILY 04/04/21 [History Last Taken 04/07/21 08:00] prenat.vits,esha,[id number] [ Vitamin] 1 tab PO DAILY 04/09/21 [H istory Last Taken 04/08/21 15:00] Allergy/AdvReac Type Severity Reaction Status Date / Time No Known Allergies Allergy Verified 04/09/21 15:39 Social History (Updated 01/25/21 @ 10:[address] Ronny Crews, DO) Smoking Status: Former smoker substance use type: does not use History Elective abortions Hx Para 3 Spontaneous abortions Hx # Term Pregnancies Ectopic pregnancies Hx # Pregnancies Multiple births # of living children Physical Exam Const alert and no apparent distress General Appearance: cooperative and comfortable GI soft to palpation and non-tender Extremity normal to inspection NST FHR Rate Baby A Baseline: 130 Variability:: Moderate Accelerations:: 15 x 15 Decelerations:: None NST Reactive:: Yes FHR Rate Baby B Baseline: 135 Variability:: Moderate Accelerations:: 15 x 15 Decelerations:: None NST Reactive:: Yes Assessment & Plan (1) 32 weeks gestation of : PLAN: Patient was observed on labor and delivery for several hours. Cervix was 1 thick and high. FFM was sent and positive. Betamethasone was given. GBS was collected. She was given a fluid bolus. After IV fluid hydration her contractions had spaced apart and symptomatically she was feeling better. She was comfortable appearing and did not appear to be in early labor. Transabdominal ultrasound performed showed baby A in vertex presentation baby B in breech presentation. Had a discussion with the patient regarding mode of delivery should she go into early labor at 32 weeks gestation, and recommended a section given baby B is currently in breech presentation. She was discharged home with follow-up tomorrow in the office for second steroid injection and a visit with a physician. (2) Twin : (3) Uterine contractions: (4) COVID-19:
== END 2021-04-09 23:59 | disposition home or self-care (01) ==
LOC: WPOUT 11:40 → WP 11:41
PROVIDERS: Referring Provider Obstetrics & Gynecology; Visit Provider Obstetrics & Gynecology
DX: O47.03 False labor before 37 completed weeks of gestation, third trimester (principal); O30.043 Twin pregnancy, dichorionic/diamniotic, third trimester; Z87.891 Personal history of nicotine dependence; Z3A.32 32 weeks gestation of pregnancy; O32.1XX2 Maternal care for breech presentation, fetus 2; O98.513 Other viral diseases complicating pregnancy, third trimester; U07.1 COVID-19
CPT/HCPCS: 96360; 59050; 81002; 82731; 87081; 87653; 96372; 99218; J7120; G0378; J0702

== ENCOUNTER 2021-05-15 09:50 | Inpatient (IN) | payer MEDICAID, SELFPAY ==
[2021-05-15] VITALS (54 sets, daily range): BP systolic 78–108; BP diastolic 48–68; PULSE 62–103; TEMP 36.4–37.4; O2SAT 95–100; BMI 27.3
[2021-05-15] MEDS: Lactated Ringers 1,000 ML 50 ML IV (10:30)
[2021-05-15 10:50] LABS: Absolute Lymphocyte Count 1.22 X10^3/uL (0.83-4.51); Absolute Neutrophil Count 6.7 X10^3/uL (2.0-7.7); Basophil# 0.03 X10^3/uL; Basophil% 0.3 % (0-1); Eosinophil# 0.06 X10^3/uL; Eosinophils% 0.7 % (0-5); Hemoglobin 10.8 g/dL (12.0-15.0); Lymphocyte # 1.22 X10^3/ul (0.83-4.51); Lymphocyte % 14.1 % (19-41); Mean Corp Hgb Conc 33.8 g/dL (32-36); Mean Corpuscular Hgb 29.6 pg (27.0-32.0); Mean Corpuscular Volume 87.7 fL (81-99); Mean Platelet Vol. 11.8 fl (6.2-12.0); NRBC Flagged by Analyzer 0 % (0-5); Neutrophil # 6.67 X10^3/uL (2.7-7.7); Neutrophil % 77.3 % (47-70); Platelet Count 204 K/mm3 (150-450); RBC Distribution Width CV 17.2 % (11.6-14.6); Red Blood Count 3.65 M/mm3 (4.2-5.4); White Blood Count 8.6 K/mm3 (4.4-11.0)
[2021-05-15] MEDS: Lactated Ringers 500 ML 999 ML IV ×3 (11:01→15:26)
[2021-05-15] MEDS: fentaNYL-bupivacaine (epidural) 100 ML BAG EPIDURAL ×2 (12:02→16:31)
[2021-05-15] MEDS: 0.9% Saline Lock 10 ML Syringe IV (12:50)
[2021-05-15] MEDS: Oxytocin 30 units/NS 500 ml 30 UNITS/500 ML IV.SOLN IV (13:09)
[2021-05-15] MEDS: Ondansetron 4 MG/2 ML Vial IV (15:20)
[2021-05-15] MEDS: Mag Hydrox/Al Hydrox/Simeth 30 ML UDC PO (16:40)
[2021-05-15] MEDS: Lactated Ringers 1,000 ML 200 ML IV (17:21)
--- NOTE | 2021-05-15 17:29 | HP.PCM.OB_ITS ---
[facility] - General General Date of Admission: 05/15/21 Date of Service: 05/15/21 Chief Complaint: SROM HPI Narrative LIS GALINDO, is a 30 6 para 4-0-1-4 who presents at 37-5/7 weeks with dichorionic diamniotic twin gestation with spontaneous rupture membranes. She denies any vaginal bleeding or leaking fluid. She has had some irregular contractions. Twins have been appropriate for gestational age. is complicated to date by twin gestation, history of previous section with successful VBACs in the past. She has a history of kidney stones. Nicotine use disorder and antepartum anemia as well as abnormal Pap smears Maternal Data Information Final EVAN: 05/31/21 Gestational age: 37 5/7 PFSH [facility] Medical History (Updated 05/15/21 @ 17:[address] Laura Hurley MD) Anxiety HPV (human papilloma virus) infection Vaginal after Home Medications prenat.vits,esha,[id number]-[id number] [ Vitamin] 1 tab PO DAILY 04/09/21 [History Last Taken 05/14/21 21:00] ferrous sulfate 325 mg PO QODAY 05/15/21 [History Last Taken 05/14/21 21:00] Allergy/AdvReac Type Severity Reaction Status Date / Time No Known Allergies Allergy Verified 05/15/21 10:23 Surgical History (Updated 05/15/21 @ 17:[address] Laura Hurley MD) Previous section Social History (Updated 01/25/21 @ 10:[address] Ronny Crews DO) Smoking Status: Current some day smoker tobacco type: cigarettes substance use type: does not use History Elective abortions Hx Para 4 Spontaneous abortions Hx # Term Pregnancies Ectopic pregnancies Hx # Pregnancies Multiple births # of living children ROS Constitutional Constitutional: Denies fatigue, fever(s) or malaise Eyes Eyes: Denies change in vision ENT HEENT: Denies dizziness or headache(s) Cardiovascular Cardiovascular: Denies chest pain, dyspnea or lightheadedness Respiratory/Chest Respiratory/Chest: Denies cough or dyspnea Gastrointestinal Gastrointestinal: Denies change in bowel habits Genitourinary Genitourinary: Denies burning urination or genital lesions Integumentary Integumentary: Denies rash Neurologic Neurologic: Denies confusion, dizziness, headache(s), numbness or weakness Vital Signs Vital Signs Vital Signs: 05/15/21 10:11 05/15/21 10:18 05/15/21 11:46 Temperature 99.3 F H 99.3 F H Temperature Source Temporal Pulse Rate 79 Blood Pressure 104/67 108/68 BP Systolic 104 108 BP Diastolic 67 68 Pulse Ox 98 05/15/21 11:47 05/15/21 11:51 05/15/21 11:52 Temperature Temperature Source Pulse Rate 78 75 84 Blood Pressure 101/66 BP Systolic 101 BP Diastolic 66 Pulse Ox 98 97 05/15/21 11:56 05/15/21 11:57 05/15/21 12:01 Temperature Temperature Source Pulse Rate 78 84 Blood Pressure 103/68 107/62 BP Systolic 103 107 BP Diastolic 68 62 Pulse Ox 96 05/15/21 12:02 05/15/21 12:06 05/15/21 12:07 Temperature Temperature Source Pulse Rate 94 92 Blood Pressure 101/56 L BP Systolic 101 BP Diastolic 56 Pulse Ox 97 98 05/15/21 12:12 05/15/21 12:14 05/15/21 12:16 Temperature Temperature Source Pulse Rate 79 74 80 Blood Pressure 92/54 L 90/53 L BP Systolic 92 90 BP Diastolic 54 53 Pulse Ox 100 05/15/21 12:17 05/15/21 12:21 05/15/21 12:22 Temperature Temperature Source Pulse Rate 75 76 79 Blood Pressure 87/54 L BP Systolic 87 BP Diastolic 54 Pulse Ox 98 98 05/15/21 12:26 05/15/21 12:27 05/15/21 12:31 Temperature Temperature Source Pulse Rate 78 Blood Pressure 94/57 L 92/55 L BP Systolic 94 92 BP Diastolic 57 55 Pulse Ox 97 05/15/21 12:32 05/15/21 12:36 05/15/21 12:37 Temperature Temperature Source Pulse Rate 73 80 84 Blood Pressure 78/48 L BP Systolic 78 BP Diastolic 48 Pulse Ox 99 100 05/15/21 12:41 05/15/21 12:42 05/15/21 12:47 Temperature Temperature Source Pulse Rate 68 68 91 Blood Pressure 96/56 L 81/50 L BP Systolic 96 81 BP Diastolic 56 50 Pulse Ox 99 99 05/15/21 12:51 05/15/21 12:52 05/15/21 12:53 Temperature Temperature Source Pulse Rate 84 85 Blood Pressure 86/53 L 89/52 L BP Systolic 86 89 BP Diastolic 53 52 Pulse Ox 99 05/15/21 12:55 05/15/21 14:10 05/15/21 14:11 Temperature 97.6 F L 97.5 F L Temperature Source Temporal Pulse Rate 78 Blood Pressure BP Systolic BP Diastolic Pulse Ox 100 05/15/21 14:18 05/15/21 15:10 05/15/21 16:05 Temperature 97.7 F L Temperature Source Pulse Rate 75 75 Blood Pressure 100/58 L 93/56 L BP Systolic 100 93 BP Diastolic 58 56 Pulse Ox 05/15/21 16:06 05/15/21 16:07 05/15/21 16:50 Temperature 99.0 F Temperature Source Temporal Temporal Pulse Rate 73 83 72 Blood Pressure 94/50 L 98/53 L BP Systolic 94 98 BP Diastolic 50 53 Pulse Ox 97 05/15/21 16:52 Temperature Temperature Source Pulse Rate 103 H Blood Pressure BP Systolic BP Diastolic Pulse Ox 99 Weight Weight: 67.7 kg Body Mass Index (BMI) 27.3 Physical Exam Const alert and no apparent distress General Appearance: cooperative HEENT normocephalic Resp normal respiratory effort Cardio regular rate GI soft to palpation GI Narrative: gravid, nontender, appropriate for gestational age Extremity no calf tenderness General Extremity: edema Skin no wounds Rashes: No rashes noted Psych activity/motor behavior normal Labs Labs Labs: Blood Type A POSITIVE Antibody Screen NEGATIVE Hct 32.0 % (37-47) L Hgb 10.8 g/dL (12.0-15.0) L Group B Strep DNA Negative (Negative) Rhogam given: No Assessment & Plan (1) 37 weeks gestation of : (2) Dichorionic diamniotic twin gestation: (3) Supervision of other high risk pregnancies, third trimester: (4) SROM (spontaneous rupture of membranes): (5) Previous delivery affecting : PLAN: Risk, benefits, and alternatives to trial of labor after section were discussed with patient, questions were answered to her satisfaction she desires to proceed. She understands she can elect for section anytime. She is an excellent candidate. She has had a successful in the past. She has a dichorionic diamniotic twin gestation and the estimated weights are both in the 6 to 6-1/2 pound range. There vertex breech presentation. Pelvis is clinically adequate to expect vaginal delivery. Recommend epidural.
[2021-05-15] MEDS: Oxytocin 30 units/NS 500 ml 30 UNITS/500 ML IV.SOLN 334 UNITS IV (17:53)
--- NOTE | 2021-05-15 18:04 | PLAC_PTH ---
PATIENT: LIS SANTIAGO LOC: [facility] U#:[id number] AGE/SX: 30/F ROOM: WP021 RE05/15/[address]: Dr. Laura Hurley MD : 1990 BED: 1 DIS: 05/17/2021 SPEC #: [id number] RECD: 05/15/21 21:56 STATUS: [place] #: [id number] JOSHUA: 05/15/21 18:[address]: Laura Hurley DEPT: SURGICAL PATHOLOGY RECD BY: Candie Aldridge ENTERED: 05/16/21 09:16 SP TYPE: PLACENTA OTHR DR: No Primary Care Phys Tissues: Placenta, NOS Procedures: Surgery Specimen Level V HEADER OPERATION: Vaginal delivery PRE-OP DIAGNOSIS: Twins TISSUE SUBMITTED: Placenta (baby A only) MICROSCOPIC DIAGNOSIS Michaud placenta (279 gm): Umbilical cord ? trivascular with no inflammation. Placental membranes - no pathologic change. Placental disc ? intravillous congestion and Eric-Nam change. AM:amadou 05/17/2021 MICROSCOPIC DESCRIPTION Slides are reviewed. GROSS DESCRIPTION SPECIMEN: PLACENTA / CLINICAL INFORMATION: A. Weight: 2.485 kg B. Gestational Age: 37 weeks C. Sex: Female PLACENTAL WEIGHT (POST FIXATION): 279 gm PLACENTAL DIMENSIONS: 21 x 9 x 3 cm PLACENTAL SHAPE: Usual ovoid PLACENTAL WEIGHT FOR GESTATIONAL AGE: Under 10th percentile MEMBRANES - Present A. Insertion: Marginal B. Site of rupture from edge: At edge of placental disc C. Color of membrane: Almonte-gar D. Abnormalities: None UMBILICAL CORD - Present A. Color: Almonte-gar B. Insertion: Eccentric C. Length: 35 cm D. Diameter: 1.2 cm E. Number of vessels: Three F. Abnormalities: None PLACENTAL DISC - Present A. Color of surface: Almonte-gar B. surface abnormalities: None C. Maternal cotyledons: Intact with minimal tears D. Attached retro placental clot: No clot E. Cut surface: Dark red and spongy F. Lesions: None G. Separate clot: Absent SECTIONS SUBMITTED: 1. Umbilical cord ( end notched) 2. Umbilical cord, placental end 3. Membrane roll 4. Placental disc, and maternal surfaces 5. Placental disc, and maternal surfaces 6. Placental disc, and maternal surfaces AM:amadou 05/16/2021 TC:5 CPT: 66667
--- NOTE | 2021-05-15 18:06 | OP.PCM_ITS ---
Maternal Data Information Final EVAN: 05/31/21 Gestational age: 37 5/7 Vaginal Delivery Maternal Presentation Maternal Presentation: Spontaneous Rupture of Membranes Type of Induction: Pitocin Medical Reason for Induction: Premature Rupture of Membranes Operative Information Date of Procedure: 05/15/21 Pre-Operative Diagnosis: 37 weeks, twins Post-Operative Diagnosis: same Surgery / Procedure Performed: Spontaneous Vaginal Delivery Type of Anesthesia: Epidural Special Medications: none Drain: Ferrari to straight drain Estimated Blood Loss: 400 Time of Delivery: 17:44 Findings Description of Procedure: I was called when the patient was found to be 10 cm. She was transferred to the operating room for delivery.A vigorous female was delivered LANRE over an intact perineum. The remainder the was delivered with maternal pushing and gentle traction only in less than 15 seconds. The cord was clamped and cut after 1 minute. Baby B was palpated and found to be vertex. With the next contraction the head was against the cervix and artificial rupture membranes was performed with return of large gush of clear fluid. The head was well applied against the cervix. Patient began to then push with baby B. She pushed with 3 contractions to . The infant's head was delivered without difficulty and the shoulders were delivered in less than 15 seconds with maternal pushing effort and gentle traction only. Again cord clamping was delayed. The cord was then clamped and cut. Pitocin was initiated. The placenta was delivered spontaneously and intact. The cervix and vagina were intact. Sponge and needle counts were correct. A v aginal sweep was completed by me. Presentation: Vertex and LANRE Amniotic Membrane Rupture Type: Spontaneous Amniotic Fluid Description: Clear Placental Delivery Description: Spontaneous Placenta Disposition: Sent to Pathology Cord Vessel Description: 3 Vessels Cord Entanglement: None A Gender: Female (Jewels) (1 minute): 9 (5 minute): 9 Delayed Cord Clamping: Yes Post Vaginal Delivery Medications Given After Delivery: IV Pitocin Episiotomy Description: None Laceration: None Complication Complications: None Baby B Information Amniotic Membrane Rupture Type: Artificial Presentation: GOSIA Operative Information Mode of Delivery: Vaginal Cord Vessel Description: 3 Vessels Cord Entanglement: None Cord Gases: ABG and VBG Infant B gender: Female (Arminda, apgars unavailable at time of this entry) Delayed Cord Clamping: Yes
[2021-05-15] MEDS: Methylergonovine 0.2 MG/ML Ampul IM (18:50)
[2021-05-15] MEDS: miSOPROStol 200 MCG Tablet 800 MCG RC (19:34)
--- NOTE | 2021-05-15 19:35 | PCM.PN.BLA ---
Progress Note Was called to see patient by nursing for small amount of oozing with each fundal check. When I examined the patient a small amount of blood returned with fundal pressure. The uterus was mildly boggy. I explored the cervix and there was a clot at the os. I then performed a transabdominal ultrasound which revealed some clots left in the uterus. They were unable to be expressed manually. I then asked for the banjo curette and was able to under ultrasound guidance banjo out some clots from the uterus. The uterus was then very firm. The patient stated she felt fine, she was not having any pain in her epidural was still adequate. EBL is approximately 400 more cc for a total of 800 cc from delivery in this procedure. Patient was given Ancef 2 g in a dose of rectal Cytotec. Will monitor closely. Mild atony without hemorrhage. Check CBC in a.m.
[2021-05-15] MEDS: Cefazolin 2 GM in 0.9% Normal Saline 100 ML IV (20:06)
[2021-05-15 22:35] LABS: Pathology Specimen OB SEE PATHOLOGY REPORT
[2021-05-16] VITALS (11 sets, daily range): BP systolic 98–109; BP diastolic 51–64; PULSE 65–81; RESP 16–18; TEMP 36.2–36.7; O2SAT 95–98
[2021-05-16] MEDS: Ibuprofen 600 MG Tablet PO ×3 (00:34→19:55)
[2021-05-16 04:54] LABS: Hematocrit 31.4 % (37-47); Hemoglobin 10.5 g/dL (12.0-15.0); Mean Corp Hgb Conc 33.4 g/dL (32-36); Mean Corpuscular Hgb 29.8 pg (27.0-32.0); Mean Corpuscular Volume 89.2 fL (81-99); Mean Platelet Vol. 11.8 fl (6.2-12.0); Platelet Count 179 K/mm3 (150-450); RBC Distribution Width CV 17.2 % (11.6-14.6); RBC Distribution Width SD 55.4 fl (35.1-43.9); Red Blood Count 3.52 M/mm3 (4.2-5.4)
[2021-05-16] MEDS: Acetaminophen 500 MG Tablet 1000 MG PO ×2 (05:02→14:00)
--- NOTE | 2021-05-16 08:29 | PN.OBGYN_ITS ---
Subjective Subjective Patient seen at bedside. Feeling good. Denies any headache, CP, SOB, or pain. Ambulating and voiding without difficulty. Lochia minimal. Bottle feeding twins. One baby transferred to [facility] after delivery because she needed CPAP. Baby is now off of CPAP and doing well on room air. Patient desires discharge home later today. Objective Data Objective Data Vital Signs: Vital Signs Temp Pulse Resp BP Pulse Ox 97.7 F L 67 16 98/57 L 96 05/16/21 04:30 05/16/21 08:21 05/16/21 04:30 05/16/21 08:21 05/16/21 04:38 Oxygen Delivery Method Room Air Weight: 149 lb 4.047 oz Body Mass Index (BMI) 27.3 Intake & Output: Intake and Output for Last 24 Hours 05/14/21 05/15/21 05/16/21 23:59 23:59 23:59 Intake Total 3226.57 / 3226.57 Output Total 600 / 600 400 / 400 Balance 2626.57 / 2626.57 -400 / -400 Lab / Micro Data Result Diagrams: 05/16/21 04:45 Labs: Laboratory Results - last 24 hr 05/15/21 10:30: WBC 8.6, RBC 3.65 L, Hgb 10.8 L, Hct 32.0 L, MCV 87.7, MCH 29.6, MCHC 33.8, RDW Std Deviation 54.0 H, RDW Coeff of Sterling 17.2 H, Plt Count 204, MPV 11.8, Immature Gran % (Auto) 0.600, Neut % (Auto) 77.3 H, Lymph % (Auto) 14.1 L, [place] % (Auto) 7.0, Eos % (Auto) 0.7, Baso % (Auto) 0.3, Absolute Neuts (auto) 6.7, Absolute Lymphs (auto) 1.22, Nucleated RBC % 0 05/15/21 10:30: Blood Type A POSITIVE, Antibody Screen NEGATIVE 05/16/21 04:45: WBC 13.0 H, RBC 3.52 L, Hgb 10.5 L, Hct 31.4 L, MCV 89.2, MCH 29.8, MCHC 33.4, RDW Std Deviation 55.4 H, RDW Coeff of Sterling 17.2 H, Plt Count 179, MPV 11.8 Micro: Microbiology 05/15/21 10:45 Nasal Secretion SARS-CoV-2 Antigen (Rapid) - Final ROS Eyes Eyes: Denies blurry vision, change in vision or spots in vision ENT HEENT: Denies dizziness or headache(s) Cardiovascular Cardiovascular: Denies abdominal pain, chest pain or dyspnea Respiratory/Chest Respiratory/Chest: Denies cough, dyspnea, shortness of breath at rest or shortness of breath with exertion Gastrointestinal Gastrointestinal: Denies abdominal pain, diarrhea or vomiting Genitourinary Genitourinary: Denies change in urinary stream, difficulty urinating or dysuria Musculoskeletal Musculoskeletal: Reports none Integumentary Integumentary: Denies rash Neurologic Neurologic: Denies dizziness, headache(s), memory loss or weakness Physical Exam Const alert and no apparent distress General Appearance: cooperative and comfortable Exam Limitations: no limitations HEENT normocephalic Eyes General Eye: normal appearance of both eyes Neck full ROM General: normal visual inspection Chest Chest: symmetrical chest wall rise Resp normal respiratory effort and normal air movement Effort and Inspection: symmetric chest movement Auscultation: clear to auscultation bilaterally Cardio regular rate and regular rhythm GI normal to inspection, nondistended, normoactive bowel sounds Back/Spine normal ROM Extremity full ROM and no calf tenderness General Extremity: normal exam except as noted Skin no rashes or lesions noted Neuro CN's II-XII intact bilaterally Psych mental status grossly normal Assessment & Plan (1) Dichorionic diamniotic twin gestation: QUALIFIERS: Trimester: third trimester Qualified Code(s): O30.043 - Twin , dichorionic/diamniotic, third trimester
--- NOTE | 2021-05-16 08:33 | PCM.DC ---
Discharge Instructions Diet Discharge Diet: No restrictions Activity May resume sexual activity in: 6-8 weeks Weight Bearing Status: Weight bearing as tolerated Dressing / Incision Call your doctor if you observe: Fever of 101 or Higher, Inability to urinate, Using more than 1 pad per hour, Shortness of breath, Chest pain, Calf discomfort and Uncontrolled pain Follow Up Care When: 2 weeks virtual visit/ 6 weeks in office Test Results: Test results from this visit will be discussed in further detail at your follow-up appointment, if applicable. Discharge Plan Admission Admit Date/Time: 05/15/21 09:50 Primary Reason for Your Visit: Labor and Delivery Attending Provider: Laura Hurley Primary Care Provider: Care Physician,No Primary Discharge Orders/Prescriptions Prescriptions: No Action Vitamin Tablet 1 tab PO DAILY RF: 0 ferrous sulfate 325 mg (65 mg iron) Capsule, Extended Release 325 mg PO QODAY RF: 0 Referrals / Follow Up: Care Physician,No Primary [Primary Care Provider] - Disposition Disposition (needs filled in before D/C Order can be placed): Home, Self Care
[2021-05-17] VITALS (8 sets, daily range): BP systolic 93–108; BP diastolic 53–73; PULSE 49–67; RESP 16–20; TEMP 36.1–36.6
[2021-05-17] MEDS: Acetaminophen 500 MG Tablet 1000 MG PO (04:45)
--- NOTE | 2021-05-17 11:02 | PCM.PN.BLA ---
Progress Note Pain well controlled. Average lochia. Physical Exam Const alert and no apparent distress Narrative: Fundus firm, below umbilicus. Assessment & Plan Assessment/Plan (1) Vaginal after : PLAN: day #2 status post vaginal delivery of twins. Patient is doing well. 1 is being released from the regular nursery and the other from the special care nursery today. Follow-up in 2 weeks and as in 6 weeks or as needed. Desires tubal ligation. We will get this scheduled for her. (2) 37 weeks gestation of :
--- NOTE | 2021-05-17 11:04 | DS.PCM_ITS ---
Providers Date of Admission: 05/15/21 Primary Care Physician: Luciana Primary Care Phys Reason For Visit: RUPTURED MEMBRANES/LABOR/TWINS Diagnosis Discharge Diagnosis (1) Vaginal after : Status: Acute Code(s): O34.219 - Maternal care for unspecified type scar from previous delivery (2) 37 weeks gestation of : Status: Acute Code(s): Z3A.37 - 37 weeks gestation of Medications at Discharge Home Medications prenat.vits,esha,tin-hquj-nyiqh 1 tab PO DAILY 04/09/21 ferrous sulfate 325 mg PO QODAY 05/15/21 ibuprofen 600 mg PO Q6H PRN #30 tablet 05/17/21 Hospital Course Operations None Procedures None Summary of Care Provided Hospital Course: Patient is a 30-year-old female who was admitted at 37-5/7 weeks gestation with spontaneous rupture of membranes with twins. She went Pitocin induction of labor. She delivered both twins vaginally without la cerations or complications. Patient had some mild atony without hemorrhage in her room. The uterus was explored and gently banjo curetted. She received 1 dose of antibiotics for antibiotic prophylaxis due to curettage. She received Methergine and Cytotec doses, after that her bleeding was average. Her hemoglobin only dropped slightly appropriate for blood loss during procedures. By day #2 she was ready for discharge and doing well. The neonates were discharged as well. She was bottlefeeding. Weight / BMI Weight Weight: 67.7 kg Body Mass Index (BMI) 27.3 ABG / Lab / Microbiology Data Result Diagrams: 05/16/21 04:45 Microbiology: Microbiology 05/15/21 10:45 Nasal Secretion SARS-CoV-2 Antigen (Rapid) - Final D/C Instructions Discharge Diet: No restrictions May resume sexual activity in: 6-8 weeks Weight Bearing Status: Weight bearing as tolerated Call your doctor if you observe: Fever of 101 or Higher, Inability to urinate, Using more than 1 pad per hour, Shortness of breath, Chest pain, Calf discomfort and Uncontrolled pain Please Follow Up With: Laura Hurley MD When: 2 weeks virtual visit/ 6 weeks in office Meaningful Use Info Meaningful Use Diagnoses (Choose all that apply): None applicable Discharge Plan Admission Admit Date/Time: 05/15/21 09:50 Primary Reason for Your Visit: Labor and Delivery Attending Provider: Laura Hurley Primary Care Provider: Care Physician,No Primary Instructions Patient Instructions: After a Vaginal Discharge Orders/Prescriptions Prescriptions: New ibuprofen [ibuprofen] 600 MG tablet 600 mg PO Q6H PRN (Reason: Pain) Qty: 30 RF: 1 Continued prenat.vits,esha,qsa-hkfg-ysdnl Tablet 1 tab PO DAILY RF: 0 ferrous sulfate 325 mg (65 mg iron) Capsule, Extended Release 325 mg PO QODAY RF: 0 Referrals / Follow Up: Care Physician,No Primary [Primary Care Provider] - Disposition Disposition (needs filled in before D/C Order can be placed): Home, Self Care
[2021-05-17] MEDS: Ibuprofen 600 MG Tablet PO (17:06)
== END 2021-05-17 17:32 | disposition home or self-care (01) | DRG 560 ==
PROVIDERS: Admitting Provider Obstetrics & Gynecology; Visit Provider Obstetrics & Gynecology
DX: O42.913 Preterm premature rupture of membranes, unspecified as to length of time between rupture and onset of labor, third trimester (principal); Z37.2 Twins, both liveborn; O30.043 Twin pregnancy, dichorionic/diamniotic, third trimester; O32.1XX0 Maternal care for breech presentation, not applicable or unspecified; O34.219 Maternal care for unspecified type scar from previous cesarean delivery; F17.210 Nicotine dependence, cigarettes, uncomplicated; O75.89 Other specified complications of labor and delivery; O99.334 Smoking (tobacco) complicating childbirth; Z3A.37 37 weeks gestation of pregnancy; Z87.442 Personal history of urinary calculi
CPT/HCPCS: 59025; 59050; 76815; 85025; 85027; 86850; 86900; 86901; 87426; 88307; 99218; 99406; J7120; A4216; G0378; J2405

== ENCOUNTER → 2021-06-15 | Outpatient (CLI) | payer MEDICAID, SELFPAY ==
--- NOTE | 2021-06-13 14:29 | PCM.HP.BLA ---
History and Physical Date of Admission: 06/22/21 HPI: The patient is a 30 year old female presenting for pre-operative visit. She is scheduled for laparoscopic bilateral salpingectomy, for sterilization on 06/22/21. Procedure discussed along with risks, benefits and complications. Other alternatives discussed for management. Consent form signed? Yes. ? ? PAST MEDICAL HISTORY PAST MEDICAL HISTORY Diagnosis Date ? Abnormal Pap smear of cervix ? ? Anemia ? ? Anemia complicating , second trimester 03/08/2021 ? 03/08/21- HGB 9.4. Oral iron started. Repeat CBC at 32 weeks gestation. Order placed. Margot Shell APRN.CNM ? History of kidney stones ? ? 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 ? ? PAST SURGICAL HISTORY PAST SURGICAL HISTORY Procedure Laterality Date ? DELIVERY ONLY ? 11/25/2014 ? , low transverse ? CONIZATION CERVIX W/WO D&C RPR KNIFE/LASER ? 2006 ? D&C, DIAG AND/OR THERAPEUTIC ? ? ? INSERTION OF IUD N/A 05/22/2016 ? paragard ? VAGINOSCOPY ? 2006 ? ? ? CURRENT MEDICATIONS Current Outpatient Medications Medication Sig Dispense Refill ? omeprazole (PRILOSEC) 20 mg capsule Take 1 capsule by mouth once daily. 30 capsule 3 ? ferrous sulfate 325 mg (65 mg iron) tablet Take 1 tablet by mouth every other day. take at a meal separate from your vitamin 15 tablet 5 ? [id number]-nelev0-eaz ( PLUS DHA) 18 mg iron-800 mcg-290 mg cppt Take 1 tablet by mouth once daily. 30 Each 12 ? acetaminophen (TYLENOL) 325 mg tablet Take 650 mg by mouth every 6 hours as needed. ? ? ? 0.9 % sodium chloride (0.9% NACL) Inject 10-20 mL intravenously as needed for up to 4 doses. NURSING USE ONLY: USED FOR IV ACCESS. AMBULATORY/OUTPATIENT: PLEASE REORDER UPON HOSPITAL DISCHARGE If no IVAD access, may place IV if needed for labs or possible treatment. Flush 10-20ml on IV start and as needed. Please discontinue IV on completion of treatment. (Patient not taking: Reported on 06/13/2021 ) 1 Syringe 3 ? iron sucrose 200 mg in NaCl 0.9% 100 mL Inject 200 mg intravenously as directed for 4 doses. May administer once weekly or as frequently as every other day. (Patient not taking: Reported on 06/13/2021 ) 10 mL 3 ? ondansetron orally disintegrating (ZOFRAN ODT) 4 mg disintegrating tablet Take 1 tablet by mouth every 12 hours as needed for nausea/vomiting. (Patient not taking: Reported on 06/13/2021 ) 6 tablet 0 ? Current Facility-Administered Medications Medication Dose Route Frequency Provider Last Rate Last Admin ? NaCl 0.9% iv infusion 500 mL/hr INTRAVENOUS PRN Kelsey Wallace MD ? diphenhydrAMINE 50 mg injection (BENADRYL) 50 mg INTRAVENOUS PRN Kelsey Wallace MD ? hydrocortisone sodium succinate (PF) 100 mg injection (Solu-CORTEF) 100 mg INTRAVENOUS PRN Kelsey Wallace MD ? EPINEPHrine 1 mg/mL (1 mL) 0.3 mg injection 0.3 mg INTRAMUSCULAR PRN Kelsey Wallace MD ? ? ALLERGIES: Patient has no known allergies. ? PERSONAL HISTORY: SOCIAL HISTORY Social History ? Tobacco Use ? Smoking status: Former Smoker ? ? Packs/day: 0.50 ? ? Years: 15.00 ? ? Pack years: 7.50 ? ? Types: Cigarettes ? ? Quit date: 07/13/2020 ? ? Years since quittin.9 ? Smokeless tobacco: Never Used Vaping Use ? Vaping Use: current everyday user ? Substances: Nicotine ? Devices: Disposable Substance Use Topics ? Alcohol use: Not Currently ? ? Alcohol/week: 7.5 standard drinks ? ? Types: 3 Cans of Beer (12oz) per week ? Drug use: No ? FAMILY HISTORY: FAMILY HISTORY FAMILY HISTORY Problem Relation Age of Onset ? Hypertension Mother ? ? Migraines Mother ? ? No Known Problems Father ? ? Bipolar disorder Brother ? ? Breast Cancer Maternal Grandmother ? ? No Known Problems Maternal Grandfather ? ? No Known Problems Paternal Grandmother ? ? Cancer Paternal Grandfather ? ? Stroke Paternal Grandfather ? ? No Known Problems Daughter ? ? No Known Problems Daughter ? ? No Known Problems Son ? ? No Known Problems Son ? ? ? REVIEW OF SYMPTOMS: .rlrrors ? PHYSICAL EXAMINATION: ? VITALS: Blood pressure 98/60, weight 127 lb (57.6 kg), last menstrual period 08/24/2020, not currently . ? GENERAL: The patient is well nourished, well hydrated in no acute distress. , The patient is oriented to time, place, and person. NECK: Supple. No lynphadenopathy, normal thyroid, no thyromegaly. LUNGS: Clear to auscultation bilaterally. no wheezes, rhonchi or rales HEART: Regular rate and rhythm, Normal heart sounds and No murmurs or gallops ? IMPRESSION: Sterilization request ? PLAN: The risks/benefits/alternatives and personal involved for the planned laparoscopic bilateral salpingectomy were reviewed with the patient. Her questions were answered to her satisfaction and she desires to proceed. Consent was signed. I reviewed with her postop instructions and expectations. ? ? I have reviewed and updated past medical and surgical history, medications and allergies Assessment & Plan Assessment/Plan (1) Sterilization:
== END | disposition home or self-care (01) ==
LOC: PAT 07-12 13:52
PROVIDERS: Referring Provider Obstetrics & Gynecology; Visit Provider Obstetrics & Gynecology
DX: Z30.2 Encounter for sterilization (principal); Z87.891 Personal history of nicotine dependence; D64.9 Anemia, unspecified; Z20.828 Contact with and (suspected) exposure to other viral communicable diseases; Z01.818 Encounter for other preprocedural examination
CPT/HCPCS: 87426; C9803

== ENCOUNTER 2021-09-20 08:16 | Day surgery (SDC) | payer MEDICAID, SELFPAY ==
[2021-09-18 10:43] LABS: Hematocrit 38.1 % (37-47); Hemoglobin 12.6 g/dL (12.0-15.0); Mean Corp Hgb Conc 33.1 g/dL (32-36); Mean Corpuscular Hgb 29.1 pg (27.0-32.0); Mean Platelet Vol. 10.8 fl (6.2-12.0); Platelet Count 327 K/mm3 (150-450); RBC Distribution Width CV 14.1 % (11.6-14.6); RBC Distribution Width SD 45.3 fl (35.1-43.9); Red Blood Count 4.33 M/mm3 (4.2-5.4); White Blood Count 11.2 K/mm3 (4.4-11.0)
[2021-09-20 08:31] VITALS: BP 99/66; PULSE 64; RESP 16; TEMP 37; O2SAT 100; BMI 22.6
[2021-09-20] MEDS: Lactated Ringers 1,000 ML 15 ML IV (08:37)
[2021-09-20] MEDS: Celecoxib 200 MG Capsule PO ×2 (08:37)
[2021-09-20] MEDS: Acetaminophen 500 MG Tablet 1000 MG PO (08:38)
[2021-09-20 08:39] LABS: Internal QC Validated? YES +Cl - CLEAR BKGD; Pregnancy, Urine Negative Negative
--- NOTE | 2021-09-20 08:44 | PCM.HP.BLA ---
History and Physical Date of Admission: 09/20/21 H&P scanned in from 09/05/21 reviewed. No clinically relevant updates since completed.
[2021-09-20] MEDS: Levonorgestrel IUD (Liletta) 1 EACH INTRA-UTER (09:50)
--- NOTE | 2021-09-20 09:50 | FALS_PTH ---
PATIENT: LIS SANTIAGO LOC: [facility] [place] U#:[id number] AGE/SX: 31/F ROOM: RE09/20/[address]: Dr. Laura Hurley MD : 1990 BED: DIS: 09/20/2021 SPEC #: [id number] RECD: 09/20/21 12:24 STATUS: ARTIS REDorothy #: [id number] JOSHUA: 09/20/21 09:[address]: Laura Hurley DEPT: SURGICAL PATHOLOGY RECD BY: Palmira Medel ENTERED: 09/20/21 13:29 SP TYPE: FALL TUBES OTHR DR: Luciana Primary Care Phys Tissues: Fallopian tube Procedures: Surgery Specimen Level II Surgery Specimen Level IV HEADER OPERATION: Laparoscopic salpingectomy, IUD insertion PRE-OP DIAGNOSIS: Sterilization TISSUE SUBMITTED: Bilateral fallopian tubes MICROSCOPIC DIAGNOSIS Right and left fallopian tubes, bilateral salpingectomies: Complete cross-sections of fallopian tubes. Acute salpingitis of one fallopian tube. Benign paratubal cyst. AM:amadou 09/21/2021 MICROSCOPIC DESCRIPTION Slides are reviewed. GROSS DESCRIPTION Received in fixative is one container labeled with the patient's name and designated bilateral fallopian tubes. The specimen consists of bilateral fallopian tubes including fimbrial ends each measuring 8 cm in length and up to 1 cm in diameter. The fallopian tubes are not identified as right or left. Sections reveal unremarkable cut surfaces. Formula Room Worker sections are submitted in two cassettes with each cassette containing one fallopian tube. / SAMMIE:amadou 09/20/2021 TC:2 CPT: 70857, 53054
[2021-09-20] MEDS: Bupivacaine Mpf 0.5% 30 ML VIAL (10:11)
--- NOTE | 2021-09-20 10:26 | DCINST_ITS ---
Discharge Instructions Diet Discharge Diet: No restrictions Activity Discharge Activity: Return to Normal Activity and [address] (09/21/21) Return to work on:: 09/25/21 May shower in (days): 1 May resume sexual activity in: 1 week Dressing / Incision Call your doctor if your incision/area has: Continuous Slow Oozing, Sudden Increased Bleeding and Foul Smelling Discharge Call your doctor if you observe: Fever of 101 or Higher Cleanse incision/area with: Soap & Water Additional Dressing/Incision Instructions:: leave skin glue on for 7-10 days. It will fall off or dissolve on its own. Follow Up Care Please Follow Up With: Laura Hurley MD When: as needed Test Results: Test results from this visit will be discussed in further detail at your follow- up appointment, if applicable. Discharge Plan Admission Primary Reason for Your Visit: Tubal sterilization, IUD insertion Attending Provider: Laura Hurley Primary Care Provider: Care PhysicianLuciana Primary Instructions Patient Instructions: Discharge Instruction for ... Discharge Orders/Prescriptions Prescriptions: No Action acetaminophen [Tylenol] 325 mg Tablet 650 mg PO Q4H PRN (Reason: Pain) ibuprofen 600 mg tablet 1 tab PO Q8H PRN (Reason: Pain) Referrals / Follow Up: Care Physician,No Primary [Primary Care Provider] - Disposition Disposition (needs filled in before D/C Order can be placed): Home, Self Care
--- NOTE | 2021-09-20 10:28 | OP.PCM_ITS ---
Problems Associated Problem List Diagnoses (1) Sterilization: Report of Operation Date of Procedure: 09/20/21 Pre-Operative Diagnosis: sterilization request, IUD insertion Post-Operative Diagnosis: same Surgery/Procedure Performed:: laparoscopic bilateral salpingectomy and Liletta IUD insertion Description of Surgical Findings:: normal cervix and vagina, normal uterus, tubes and ovaries Surgeon: Laura Hurley quality control tester: None Type of Anesthesia: General Anesthesiologist: Domenica Posadas Special Medications: none Specimen's removed: bilateral fallopian tubes Drains: none Estimated Blood Loss (mL): 5 Fluids Replaced: 500 Description of Procedure: The patient was taken to the operating room where she was prepped and draped in the dorsolithotomy position. A weighted speculum was placed in the vagina and the anterior lip of the cervix was grasped with a tenaculum. The Jo uterine manipulator was placed and the remainder of the instruments were removed from the vagina. Attention was turned to the abdomen. All port sites were infiltrated with 0.5% Marcaine before skin incisions were made. A 5 mm intraumbilical incision was made. The anterior abdominal wall was tented up with 2 towel clamps while a 5 mm blade less trocar and sleeve were directly inserted. Intraperitoneal placement was confirmed with the laparoscope. The pneumoperitoneum was created and the underlying abdominal contents were intact. The patient was placed in Trendelenburg. Right and left lower quadrant ports were placed under direct visualization lateral to the inferior epigastric vessels. The bowel was swept away and the above findings were noted. The LigaSure device was used to clamp seal and transect the antimesenteric p ortions of the right tube to the cornual insertion of the uterus. The tube was amputated from the uterus and the pedicles were all confirmed to be hemostatic. The same procedure was performed on the contralateral side. The specimens were brought out through a 5 mm port. The pedicles were again examined and found to be hemostatic. The lateral ports were removed under direct visualization and no active bleeding was noted. The pneumoperitoneum was released. The skin incisions were closed with Monocryl suture in a subcuticular fashion and skin glue. The vaginal instruments were removed. The Liletta IUD was readied and inserted in the usual sterile fashion. The strings were cut to 2 cm . The vaginal sweep was completed by me. The entire procedure was performed by me with assistance. All sponge and needle counts were correct and the patient was taken to the recovery room in stable condition. Grafts/Implants Used: Liletta IUD Procedure Start Time: 10:11 Procedure Stop Time: 10:26 Complications none Admit VTE Documentation VTE Present on Admission: No VTE Mechan Device Prophylaxis: SCD's VTE Pharm Prophylaxis ordered?: No Reason prophylaxis not ordered:: Procedure Not Indicated
[2021-09-20 10:36] VITALS: BP 122/83; BP 99/66; PULSE 58; RESP 16; TEMP 36.7; O2SAT 97
[2021-09-20 10:45] VITALS: BP 125/70; BP 99/66; PULSE 57; RESP 16; O2SAT 100
[2021-09-20 11:00] VITALS: BP 121/84; BP 99/66; PULSE 51; RESP 16; O2SAT 100
[2021-09-20 11:15] VITALS: BP 119/77; BP 99/66; PULSE 51; RESP 16; TEMP 36.7; O2SAT 100
[2021-09-20 12:12] VITALS: BP 102/71; BP 99/66; PULSE 56; RESP 16; TEMP 36.4; O2SAT 97
== END 2021-09-20 12:43 | disposition home or self-care (01) ==
LOC: SDC 08:16 → AC 08:17
PROVIDERS: Referring Provider Obstetrics & Gynecology; Visit Provider Obstetrics & Gynecology
PROC: (CPT 58661; principal; 2021-09-20 09:35)
DX: Z30.2 Encounter for sterilization (principal); Z30.430 Encounter for insertion of intrauterine contraceptive device; N83.8 Other noninflammatory disorders of ovary, fallopian tube and broad ligament; N70.01 Acute salpingitis; Z87.442 Personal history of urinary calculi; Z87.891 Personal history of nicotine dependence
CPT/HCPCS: 58661; 58300; 00840; 36415; 81025; 85027; 88302; 88305; J7120; C1760; J2405

== ENCOUNTER → 2022-08-29 | Outpatient (CLI) | payer MEDICAID, SELFPAY ==
[2022-08-29 15:31] LABS: Absolute Lymphocyte Count 1.58 X10^3/uL (0.83-4.51); Absolute Neutrophil Count 3.9 X10^3/uL (2.0-7.7); Basophil# 0.05 X10^3/uL; Basophil% 0.8 % (0-1); Eosinophil# 0.27 X10^3/uL; Eosinophils% 4.3 % (0-5); Hematocrit 38.9 % (37-47); Hemoglobin 12.5 g/dL (12.0-15.0); Lymphocyte # 1.58 X10^3/ul (0.83-4.51); Lymphocyte % 25.3 % (19-41); Mean Corp Hgb Conc 32.1 g/dL (32-36); Mean Corpuscular Hgb 29.6 pg (27.0-32.0); Mean Platelet Vol. 11.2 fl (6.2-12.0); Monocyte# 0.38 X10^3/uL; Monocyte% 6.1 % (0-10); NRBC Flagged by Analyzer 0 % (0-5); Neutrophil # 3.94 X10^3/uL (2.7-7.7); Neutrophil % 63.2 % (47-70); Platelet Count 298 K/mm3 (150-450); RBC Distribution Width CV 13.1 % (11.6-14.6); Red Blood Count 4.23 M/mm3 (4.2-5.4); White Blood Count 6.2 K/mm3 (4.4-11.0)
[2022-08-29 15:34] LABS: Erythrocyte Sedimentation Rate 2 mm/hr (0-30)
[2022-08-29 16:08] LABS: AST(SGOT) 7 U/L (15-37); Alanine Aminotransfer ALT/SGPT 17 U/L (13-56); Albumin, Serum 3.5 g/dL (3.2-5.0); Alkaline Phosphatase 42 U/L (45-117); Anion Gap 5 (5-15); BUN 6 mg/dL (7-18); BUN/Creat Ratio 7.9 RATIO (10-20); Calcium,Total 8.9 mg/dL (8.5-10.1); Chloride 111 mmol/L (98-107); Creatinine, Serum 0.76 mg/dL (0.55-1.02); EST Glomerular Filtration Rate 93 mL/min (>60); Est Glom Filt Rate - Afr Amer 112 mL/min (>60); Ferritin 24 ng/mL (8-252); Globulin 3.4 g/dL (2.2-4.2); Glucose 94 mg/dL (74-106); Iron 67 ug/dL (50-170); Iron Binding Capacity,Total 345 ug/dL (250-450); PERCENT IRON SATURATION 19.4 % (15.0-55.0); Potassium 3.9 mmol/L (3.5-5.1); Protein, Total 6.9 g/dL (6.4-8.2); Sodium Level 141 mmol/L (136-145); Thyroid Stim Hormone (TSH) 3.36 uIU/mL (0.358-3.74)
[2022-08-29 16:11] LABS: HIV - WCH Non-Reactive (Nonreactive); Vitamin D,25 Hydroxy 35.4 ng/mL
[2022-08-31 07:08] LABS: HEPATITIS B SURFACE AG Negative (Negative); Hep C Antibodies Non Reactive (Non Reactive); Hepatitis A IgM Antibody Negative (Negative); Hepatitis B Core AB IgM Negative (Negative)
== END | disposition home or self-care (01) ==
LOC: BIMLAB 11:55
PROVIDERS: Visit Provider Internal Medicine
DX: R53.83 Other fatigue (principal); R51.9 Headache, unspecified; E04.9 Nontoxic goiter, unspecified
CPT/HCPCS: 36415; 80053; 80074; 82306; 82728; 83540; 83550; 84443; 85025; 85652; 86038; 86703

== ENCOUNTER → 2022-09-26 | Outpatient (CLI) | payer SELFPAY ==
--- NOTE | 2022-09-26 12:11 | US_ITS ---
INDICATION: Enlarged thyroid EXAMINATION: Ultrasound US Thyroid (eg thyroid, parathyroid, parotid) TECHNIQUE: Arnett scale and color doppler imaging was performed of the thyroid gland. COMPARISON: None FINDINGS: RIGHT THYROID LOBE: 5.9 x 1.7 x 1.6 cm. Heterogeneous echotexture with normal vascularity. 6 mm mixed cystic and solid lower pole nodule. 9 mm solid, isoechoic lower pole nodule. LEFT THYROID LOBE: 5.9 x 1.4 x 1.5 cm. Heterogeneous echotexture with normal vascularity. 1.5 x 1.0 x 0.9 cm mostly solid, isoechoic nodule. 7 mm mostly solid, isoechoic nodule. 5 mm solid, hypoechoic nodule with calcification. ISTHMUS: 5.1 mm. No thyroid nodules are present. US/Thyroid IMPRESSION: 1.5 cm TR 3 nodule in the left thyroid does not meet criteria for FNA. Repeat ultrasound in one year per TI-RADS criteria. 5 mm TR 4 nodule in the left thyroid with unchanged recommendations as above mentioned TR 3 nodule. Electronically Signed: Berhane Degroot MD at 22:50 EDT ,
--- NOTE | 2022-09-26 12:11 | US_ITS ---
STUDY: ABDOMINAL ULTRASOUND - RIGHT UPPER QUADRANT REASON FOR VISIT: Female, 32 years old ruq pain, positive Fernando''s sign TECHNIQUE: Ultrasound evaluation of the right upper quadrant was performed with real-time and static gar-scale imaging. TECHNICAL QUALITY: Adequate. COMPARISON: None. FINDINGS: Liver: The liver measures 16.6 cm. There is normal echogenicity of the liver. The bile ducts are within normal limits. There is hepatic color flow. The direction of portal flow is hepatopetal. There is no demonstrated mass lesion. Gallbladder: Normal distended gallbladder. The gallbladder wall measures 1.4 mm. There is a negative sonographic Fernando''s sign. There is no pericholecystic fluid. There is a solitary echogenic gallstone within the gallbladder. This measures 1.1 cm x 1.2 cm x 0.8 cm. Common Bile Duct (C.B.D.): The common bile duct measures 5.9 mm. Pancreas: Normal size of the head, body and tail of the pancreas. There is normal echogenicity of the pancreas. There is no demonstrated pancreatic mass or cyst. Right Kidney: Normal size of the right kidney. The right kidney measures 11 cm x 5.2 cm x 4.2 cm. Normal renal cortex. The right cortex measures 1.2 cm. There is no demonstrated renal mass or cyst. There is no right hydronephrosis. US/Liver IMPRESSION: Solitary gallstone is seen in the fundal portion of the gallbladder measuring 1.1 cm x 1.2 cm x 0.8 cm. Electronically Signed: Xavi Ragland MD at 14:22 EDT ,
== END | disposition home or self-care (01) ==
LOC: US 12:10
PROVIDERS: PCP Internal Medicine; Referring Provider Internal Medicine; Visit Provider Internal Medicine
DX: E04.9 Nontoxic goiter, unspecified (principal); R10.11 Right upper quadrant pain
CPT/HCPCS: 76536; 76705

== ENCOUNTER → 2022-10-18 | Outpatient (CLI) | payer SELFPAY ==
[2022-10-21 13:07] LABS: Anti-Centromere B Ab <0.2 AI (0.0-0.9); Anti-Chromatin <0.2 AI (0.0-0.9); Anti-Jo <0.2 AI (0.0-0.9); Anti-Scleroderma-70 AB <0.2 AI (0.0-0.9); Anti-dsDNA Ab 1 IU/mL (0-9); RNP Ab 0.2 AI (0.0-0.9); SJOGREN'S Anti-SS-A test < 0.2 AI (0.0-0.9); SJOGREN'S Anti-SS-B test < 0.2 AI (0.0-0.9); Smith Ab <0.2 AI (0.0-0.9)
== END | disposition home or self-care (01) ==
PROVIDERS: PCP Internal Medicine; Referring Provider Internal Medicine; Visit Provider Internal Medicine
DX: R76.8 Other specified abnormal immunological findings in serum (principal)
CPT/HCPCS: 36415; 86225; 86235

== ENCOUNTER 2024-02-01 10:37 | Emergency (ER) | payer MEDICAID, SELFPAY ==
[2024-02-01 10:38] VITALS: BP 139/96; PULSE 77; RESP 16; TEMP 36.6; O2SAT 100; BMI 26.0
[2024-02-01] MEDS: Tetracaine 0.5% Ophthalmic Bottle 1 DRP RIGHT EYE (11:19)
[2024-02-01 12:15] VITALS: BP 139/96; PULSE 77; RESP 16; TEMP 36.6; O2SAT 100
== END 2024-02-01 12:15 | disposition home or self-care (01) ==
PROVIDERS: Emergency Provider Surgery; PCP Internal Medicine; Visit Provider Surgery
DX: S05.02XA Injury of conjunctiva and corneal abrasion without foreign body, left eye, initial encounter (principal); Z87.891 Personal history of nicotine dependence; Z98.51 Tubal ligation status; X58.XXXA Exposure to other specified factors, initial encounter
CPT/HCPCS: 99283

== ENCOUNTER → 2024-11-10 | Outpatient (CLI) | payer MEDICAID, SELFPAY ==
--- NOTE | 2024-11-10 07:29 | US_ITS ---
PROCEDURE: ABDOMEN LIMITED 11/10/2024 REASON FOR EXAM: RUQ PAIN, DIARRHEA COMPARISON: September 26, 2022. FINDINGS: Liver: Borderline hepatomegaly. The liver measures 18.7 cm. Gallbladder: Solitary gallstone measuring 1.7 cm 1.4 cm 1.1 cm. Common bile duct: Normal measuring 4 mm . Pancreas: Normal Other: Visualized portions of the right kidney are unremarkable. No right upper quadrant ascites. US/Abdomen Limited IMPRESSION: Borderline hepatomegaly measuring 18.7 cm. Solitary gallstone measuring 1.7 cm 1.4 cm 1.1 cm. Reading Location: [id number]
--- OUTSIDE RECORDS SUMMARY | 2024-11-10 07:32 | XMS RPT_ITS | CCD ---
Author Organization [facility] Care Team Providers Care Book Author Name Role Phone CRAIG HERNANDEZ Admitting Unavailable HERNANDEZCRAIG Kern C Attending Unavailable NO, DOCTOR ON Referring Unavailable HERNANDEZCRAIG Kern Primary Care Unavailable NO, DOCTOR ON Consulting Unavailable ELÍAS, SHAAN E Admitting Unavailable ELÍAS, SHAAN E Attending Unavailable NO, DOCTOR ON Referring Unavailable ELÍAS, SHAAN E Primary Care Unavailable NO, DOCTOR ON Consulting Unavailable Unavailable Primary Care Provider UnavailLuisito Wu Primary Care Provider [phone] Unavailable Primary Care Provider Unavailabl e Unavailable Primary Care Provider Unavailabl e Care Physician, No Primary Primary Care Provider Unavailable Care Physician, No Primary Referring Provider Un available Dr. Jacqueline Sharma Attending Provider Unavailable Primary Care Provider UnavailGUSTAVO Castelan Attending Unavailable GUSTAVO VIDAL Referring Unavailable Dr. Jacqueline Sharma MD Primary Care Provider Dr. Jacqueline Sharma MD Referring Provider Yvonne Stiles Attending Provider [phone] Jacqueline Sharma Primary Care Unavailable Jacqueline Sharma Referring Unavailable Yvonne Juárez Attending Unavailable Jacqueline Sharma Primary Care Unavailable Jose E Cavanaugh Attending UnavailJacqueline Morocho Primary Care Unavailable Yvonne Juárez Attending Unavailable Yvonne Juárez Referring Unavailable Medications Current Medications Medication Drug Class(es) Dates Sig (Normalized) Sig (Original) acetaminophen 325 mg oral tablet (20 sources) Start: 06-15-2021 take 2 tablets by mouth every four hours as needed for pain Acetaminophen (Tylenol) 325 mg Tablet Active 650 mg PO Q4H as needed for Pain March 25th, 2022 12:00am take 2 tablets by mo [facility] every six hours as needed acetaminophen (TYLENOL) 325 mg tablet Indications: High risk due to smoking in first trimester , complicated by prior cervical conization, antepartum Take 650 mg by mouth every 6 hours as needed. Active Comment on above: Take 650 mg by mouth every 6 hours as needed. amoxicillin 500 mg oral capsule (1 source) Penicillin-class Antibacterial Start: End: take 1 capsule by mouth twice daily amoxicillin (AMOXIL) 500 mg capsule Indications: Strep throat Take 1 capsule by mouth two times a day for 10 days. 20 capsule 0 02/25/2023 03/07/2023 Active Comment on above: Take 1 capsule by mo [facility] two times a day for 10 days. amoxicillin 875 mg / clavulanate 125 mg oral tablet (1 source) Penicillin-class Antibacterial Start: End: take 1 tablet by mouth twice daily amoxicillin-clavulanic acid (AUGMENTIN) 875-125 mg per tablet Take 1 tablet by mouth twice daily for 7 days. 14 tablet 0 08/25/2022 09/01/2022 Active Comment on above: Take 1 tablet by [facility] twice daily for 7 days. 1 ml diphenhydrAMINE hydrochloride 50 mg/ml cartridge (17 sources) Histamine-1 Receptor Antagonist Start: diphenhydrAMINE 50 mg injection (BENADRYL) 1 ml EPINEPHrine 1 mg/ml injection (17 sources) alpha-Adrenergic Agonist, beta-Adrenergic Agonist, Catecholamine Start: EPINEPHrine 1 mg/mL (1 mL) 0.3 mg injection ferrous sulfate 325 mg oral tablet (13 sources) Start: take 325 mg by mouth every other day Ferrous Sulfate Active 325 MG PO EVERY OTHER DAY May 15, 2021 11:23am Start: 12-13-2020 End: 08-29-2022 take 1 tablet by mouth every other day ferrous sulfate 325 mg (65 mg iron) tablet Take 1 tablet by mouth every other day. take at a meal separate from your vitamin 15 tablet 5 12/13/2020 08/29/2022 Discontinued (Other) Start: 11-10-2014 End: 03-09-2016 take 1 tablet by mouth once daily Ferrous Sulfate (Iron Supplement) 325 MG tablet Discontinued 325 mg PO DAILY November 10, 2014 12:00am March 09, 2016 7:04am Comment on above: Take 1 tablet by oly every other day. take at a meal separate from your vitamin fluticasone propionate 0.05 mg/actuat metered dose nasal spray (2 sources) Corticosteroid Start: 09-08-19 24 take 2 spray(s) by mouth once daily fluticasone (FLONASE) 50 mcg/actuation nasal spray Use 2 Sprays in each nostril once daily. Rinse mouth after use. 11.1 mL 09/08/2023 Active hydrocortisone 100 mg injection (17 sources) Corticosteroid Start: 04-17-19 hydrocortisone sodium succinate (PF) 100 mg injection (Solu-CORTEF) ibuprofen 600 mg oral tablet (11 sources) Nonsteroidal Anti-inflammatory Drug Start: 09-14-19 Ibuprofen 600 mg tablet Active 1 {tbl} PO Q8H as needed for Pain September 13, 2021 12:00am take 2 tablets by mo [facility] every six hours as needed ibuprofen (MOTRIN) 200 mg tablet Take 40 0 mg by mouth every 6 hours as needed for pain. Active Comment on above: Take 400 mg by mouth every 6 hours as needed for pain. loratadine 10 mg oral tablet (1 source) Start: 09-08-2023 End: 10-08-2023 take 1 tablet by mouth once daily loratadine (CLARITIN) 10 mg tablet Take 1 tablet by mouth once daily. 30 tablet 0 09/08/2023 10/08/2023 Active Prenat.Vits,Cody,Min-I bigg-Folic (1 source) Start: 04-09-2021 take 1 tablet by mouth once daily Prenat.Vits,Cody,Min- Iron-Folic Active 1 TABLET PO DAILY April 09, 2021 4:39pm 1000 ml sodium chloride 9 mg/ml injection (17 sources) Start: 04-17-2021 NaCl 0.9% iv infusion Completed/Discontinued Medications Medication Drug Class(es) Dates Sig (Normalized) Sig (Original) acetaminophen 325 mg / butalbital 50 mg / caffeine 40 mg oral tablet (4 sources) Barbiturate, Central Nervous System Stimulant, Methylxanthine Start: 09-16-2014 End: 03-09-2016 Butalbital-Acetami nophen-Caff 1 TABLET tablet Discontinued 1 {tbl} PO EVERY 4 HOURS NEEDED as needed for Migraine Symptoms September 16, 2014 12:00am March 09, 2016 7:02am Start: 09-16-2014 End: 03-09-2016 take 1 tablet by mouth every four hours as needed Ozyihwocpk-Oosqokunsjnkc-Vcle Discontinu ed 1 TABLET PO EVERY 4 HOURS NEEDED September 16, 2014 12:00am March 09, 2016 7:02am acetaminophen 325 mg / HYDROcodone bitartrate 5 mg oral tablet (4 sources) Opioid Agonist Start: 06-18-2015 End: 03-09-2016 Hydrocodone-Acetaminophen 1 TABLET tablet Discontinued 1 - 2 {tbl} PO EVERY 4 HOURS NEEDED as needed for Pain June 18, 2015 12:00am March 09, 2016 7:03am Start: 06-18-2015 End: 03-09-2016 take 1 tablet by mouth every four hours as needed Hydrocodone-Acetaminophen Discontinued 1 - 2 TABLET PO EVERY 4 HOURS NEEDED June 18, 2015 12:00am March 09, 2016 7:03am acetaminophen 325 mg / oxyCODONE hydrochloride 5 mg oral tablet (4 sources) Opioid Agonist Start: 11-26-2014 End: 03-09-2016 Oxycodone-Acetaminophen 1 TABLET tablet Discontinued 1 - 2 {tbl} PO EVERY 4 HOURS NEEDED as needed for Pain 30 November 26, 2014 12:00am March 09, 2016 7:03am Start: 11-26-2014 End: 03-09-2016 take 1 tablet by mouth every four hours as needed Oxycodone-Acetaminophen Discontinued 1 - 2 TABLET PO EVERY 4 HOURS NEEDED November 26, 2014 12:00am March 09, 2016 7:03am ciprofloxacin 3 mg/ml ophthalmic solution (1 source) Quinolone Antimicrobial Start: 02-01-2024 End: 11-04-2024 Ciprofloxacin Hcl 0.3 % drops Discontinued 2 NMA LEFT EYE Q4H 5 5 0 February 01, 2024 1:00am November 04, 2024 11:37am administer while awake levonorgestrel 0.351932 mg/hr intrauterine system (17 sources) Progestin, Progestin-containing Intrauterine Device Start: 12-16-2022 End: 12-16-2022 levonorgestrel 21 mcg/24 hours (8 yrs) 52 mg 1 Each intrauterine device (MIRENA) Start: 12-16-2022 levonorgestrel (MIRENA) 21 mcg/24 hours (8 yrs) 52 mg IUD 1 Each by INTRAUTERINE route as directed. 1 Each 12/16/2022 Active Start: 08-29-2022 Levonorgestrel (Liletta) 20.4 mcg/24 hrs (8 yrs) 52 mg intrauterine device Active 1 DEVICE INTRA-UTER ONCE August 29, 2022 12:00am as a single dose Start: 09-20-2021 End: 12-16-2022 Levonorgestrel (Liletta) 20. 4 mcg/24 hrs (8 yrs) 52 mg intrauterine device Active 1 NMA INTRA-UTER ONCE August 29, 2022 12:00am as a single dose Comment on above: 1 Each by INTRAUTERI NE route as directed. metoclopramide 10 mg oral tablet (4 sources) Dopamine-2 Receptor Antagonist Start: 09-17-19 15 End: 03-09-20 16 Metoclopramide Hcl 10 MG tablet Discontinued 10 mg PO NEEDED as needed for Nausea September 16, 2014 12:00am March 09, 2016 7:03am naproxen 500 mg oral tablet (8 sources) Nonsteroidal Anti-inflammatory Drug Start: 06-18-19 16 End: 03-09-20 16 take 1 tablet by mouth twice daily Naproxen 500 MG tablet Discontinued 500 mg PO TWICE A DAY June 18, 2015 12:00am March 09, 2016 7:03am Start: 11-26-2014 End: 03-09-2016 take 2 tablets by mouth every eight hours as needed for pain Naproxen 250 MG tablet Discontinued 500 mg PO EVERY 8 HOURS NEEDED as needed for Mild Pain (1-3/10) 30 November 26, 2014 12:00am March 09, 2016 7:03am Start: 11-26-2014 End: 03-09-2016 take 500 mg by mouth every eight hours as needed Naproxen Discontinued 500 MG PO EVERY 8 HOURS NEEDED November 26, 2014 12:00am March 09, 2016 7:03am omeprazole 20 mg delayed release oral capsule (12 sources) Proton Pump Inhibitor Start: 02-23-2021 End: 08-29-2022 take 1 capsule by mouth once daily omeprazole (PRILOSEC) 20 mg capsule Take 1 capsule by mouth once daily. 30 capsule 3 02/23/2021 08/29/2022 Discontinued (Other) Start: 09-16-2014 End: 03-09-2016 Omeprazole 10 MG capsule Dis continued 10 mg PO NEEDED as needed for Heartburn September 16, 2014 12:00am March 09, 2016 7:03am Comment on above: Take 1 capsule by mo [facility] once daily. ondansetron 4 mg disintegrating oral tablet (4 sources) Serotonin-3 Receptor Antagonist Start: End: 2 take 1 tablet by mouth every six hours as needed for nausea Ondansetron 4 MG tablet Discontinued 4 mg PO EVERY 6 HOURS NEEDED as needed for Nausea January 25, 2021 1:51pm April 04, 2021 2:56pm [id number] ga3-dha ( PLUS DHA) 18 mg iron-800 mcg-290 mg cppt (10 sources) Start: End: 3 take 1 tablet by mouth once daily [id number]-Zrsyfcy- omega3-dha ( PLUS DHA) 18 mg iron-800 mcg-290 mg cppt Take 1 tablet by mouth once daily. 30 Each 12 05/23/2020 08/29/2022 Discontinued (Other) Start: 05-23-2020 [facility] [id number]-mqo ( PLUS DHA) 18 mg iron-800 mcg-290 mg cppt Take 1 tablet by mouth once daily. 30 Each 05/23/2020 Active Comment on above: Take 1 tablet by oly once daily. rOPINIRole 0.5 mg oral tablet (4 sources) Nonergot Dopamine Agonist Start: 09-26-2022 End: 09-28-2022 take 1 tablet by mouth at bedtime Ropinirole 0.25 mg tablet Discontinued 0.25 mg PO AT BEDTIME 2 2 0 September 26, 2022 12:00am September 27, 2022 12:00am September 28, 2022 12:10am administer 1-3 hours before bedtime Start: 09-26-2022 End: 02-01-2024 take 1 tablet by mouth at bedtime Ropinirole 0.5 mg tablet Discontinued 0.5 mg PO AT BEDTIME 30 0 September 26, 2022 12:00am February 01, 2024 11:45am administer 1-3 hours before bedtime Problems Active Problems Problem Classification Problem Date Documented Da te Episodic/Chronic Abdominal pain (8 sources) Left flank pain; Translations: [Unspecified abdominal pain] Onset: 11-08-2024 Episodic Administrative/social admission (2 sources) Worried well; Translations: [Person with feared health complaint in whom no diagnosis is made] Episodic Diseases of white blood cells (4 sources) Leukocytosis; Translations: [Elevated white blood cell count, unspecified] 08-19-2019 Chronic Headache; including migraine (1 source) Headache; Translations: [Daily headache] 08-29-2022 Episodic Malaise and fatigue (1 source) Other fatigue; Translations: [Other malaise and fatigue] 08-29-2022 Episodic Nausea and vomiting (4 sources) Vomiting; Translations: [Vomiting, unspecified] 02-02-2021 Episodic Nonspecific chest pain (4 sources) Chest pain; Translations: [Chest pain, unspecified] 02-02-2021 Episodic Other congenital anomalies (1 source) Tarsal coalition of right foot; Translations: [Other specified congenital deformities of feet] 06-26-2023 Chronic Other connective tissue disease (1 source) Dysfunction of posterior tibial tendon; Translations: [Posterior tibial tendinitis, unspecified leg] 06-26-2023 Episodic Other eye disorders (1 source) Disorder of right eye; Translations: [Other specified disorders of eye and adnexa] Episodic Other eye disorders (1 source) Pain of left eye; Translations: [Ocular pain, left eye] 02-01-2024 Episodic Other female genital disorders (1 source) Abnormal uterine bleeding; Translations: [Abnormal uterine and vaginal bleeding, unspecified] 11-11-2022 Chronic Other lower respiratory disease (4 sources) Rib pain; Translations: [Pleurodynia] Episodic Other and delivery including normal (18 sources) Twin ; Translations: [Twin , unspecified number of placenta and unspecified number of amniotic sacs, second trimester] Onset: 04-25-2014 Resolved: 05-29-2021 Episodic Other upper respiratory infections (2 sources) Sore throat symptom; Translations: [Acute pharyngitis, unspecified] 02-25-2023 Episodic Otitis media and related conditions (2 sources) Acute right otitis media; Translations: [Otitis media, unspecified, right ear] Episodic Residual codes; unclassified (1 source) Immunization not carried out because of patient refusal; Translations: [Vaccination not carried out because of patient refusal] 08-29-2022 Episodic Residual codes; unclassified (1 source) Other specified health status; Translations: [Tobacco use disorder] 08-29-2022 Episodic Residual codes; unclassified (1 source) Pain; Translations: [Pain, unspecified] 06-26-2023 Episodic Skin and subcutaneous tissue infections (4 sources) Cellulitis and abscess of buttock; Translations: [Cutaneous abscess of buttock] 06-15-2020 Episodic Substance-related disorders (1 source) History of drug abuse; Translations: [History of drug use] 08-29-2022 Chronic Thyroid disorders (1 source) Nontoxic goiter, unspecified; Translations: [Goiter, unspecified] 08-29-2022 Chronic Unclassified (4 sources) No history of clinical finding in subject; Translations: [No significant past medical history] 06-14-2020 Viral infection (5 sources) Disease caused by 2019-nCoV; Translations: [COVID-19] Episodic Past or Other Problems Problem Classification Problem Date Documented Date Episodic/Chronic Calculus of urinary tract (20 sources) History of calculus of kidney; Translations: [Personal history of urinary calculi] Onset: 10-12-2020 10-12-2020 Episodic Cancer of cervix (20 sources) Atypical squamous cells of undetermined significance on cervical Papanicolaou smear; Translations: [Atypical squamous cells of undetermined significance on cytologic smear of cervix (ASC-US)] Onset: 05-13-2014 03-06-2020 Episodic Contraceptive and procreative management (20 sources) Patient encounter status; Translations: [Encounter for sterilization] Onset: 02-07-2021 Resolved: 08-29-2022 Episodic Other complications of (20 sources) Anemia in mother complicating , childbirth AND/OR puerperium; Translations: [Anemia complicating , second trimester] Onset: 03-08-2021 Resolved: 08-29-2022 03-08-2021 Chronic Other complications of (3 sources) High risk ; Translations: [Smoking (tobacco) complicating , first trimester] Onset: 04-25-2014 Resolved: 04-30-2016 03-19-2021 Episodic Other complications of (3 sources) Previous operation to cervix affecting ; Translations: [Maternal care for other abnormalities of cervix, unspecified trimester] Onset: 05-06-2014 Resolved: 04-30-2016 03-19-2021 Episodic Residual codes; unclassified (20 sources) Nicotine-filled electronic cigarette user; Translations: [Tobacco use] Onset: 10-18-2020 10-18-2020 Episodic Residual codes; unclassified (1 source) Pain, unspecified; Translations: [Pain] Onset: 06-26-2023 Episodic Screening and history of mental health and substance abuse codes (3 sources) Stopped smoking; Translations: [Personal history of nicotine dependence] Onset: 10-12-2020 Resolved: 10-18-2020 10-18-2020 Episodic Superficial injury; contusion (2 sources) Corneal abrasion; Translations: [Injury of conjunctiva and corneal abrasion without foreign body, unspecified eye, initial encounter] Onset: 02-26-2024 02-09-2024 Episodic Results Test Name Value Interpretation Reference Range Facility Internal Medicine Office Vis [place] 11-04-2024 Internal Medicine Office Visit [facility] [address] [place] [address] OFFICE VISIT Date of Service: 11/04/24 MR#: [id number] Acct: [id number] Name: LIS ROBLEDO Deobrah Rep #: [id number] : 1990 Provider: KARYNA iraheta Age/Sex: 34/F [place] [facility] Status: Signed Intake Vital Signs 02/01/24 10:38 11/04/24 11:35 Height 5 ft 2 in 5 ft 2 in Weight: 159 lb 8 oz BMI 29.1 BP 124/86 H Blood Pressure Location Lt brachial Position Sitting Respiration 16 Pulse 76 Pulse Source Monitor Temp 97 F L Temp Source Temporal Pulse Oximetry (%) 98 Oxygen Delivery Method room air Intake Visit Reasons: ACUTE BOWEL ISSUES, LOOSE STOOLS Chief Complaint: 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 Accompanied by: Self Is patient in pain?: No Allergies No Known Allergies Allergy (Verified 11/04/24 11:36) Medications ???Medication ???Instructions ???Recorded ???Confirmed ???Type acetaminophen 325 mg tablet 650 mg PO Q4H PRN Pain 06/15/21 History (Tylenol) ibuprofen 600 mg tablet 1 tab PO Q8H PRN Pain 09/13/2101/14 History levonorgestrel 20.4 mcg/24 hr (up 1 device intrauterine ONCE 02/01/24 History to 8 yrs) 52 mg intrauterine device (Liletta) Nurse's Note: diarrhea atleast 6-8 times daily some bleeding but may be d/t hemmorhoids [facility] Medical History Anxiety Anemia Wears contact lenses Wears partial dentures Wears dentures Alcohol use Marijuana use Migraine headache History of IBS Former smoker 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 Vaginal after Surgical History History of tubal ligation Previous section Family History Mother Migraine Hypertension Grandfather Prostate cancer CVA (cerebral vascular accident) Grandmother Skin cancer Breast cancer Brother Bipolar disorder Social History household members: spouse and children current occupational status: employed 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 Patient states history of diarrhea for approximately 6 months states she has had some nausea occasional right upper quadrant intermittent pain states the pain is mild but is having frequent loose stools. Describes the stools as greasy notes approximately 6-8 bowel movements per day. Exacerbating factors include high-fat or greasy foods although even 1 and avoiding these foods she still has diarrhea. Family history of colon cancer her mom has chronic constipation. She was previously diagnosed with IBS by a PCP she has not seen GI. ROS Const Constitutional: No body ache, excessive sweating, fatigue, fever(s), frequent falls, headache(s), snoring, weakness, weight change, sleep problems or change in appetite Eyes Eyes: No blurry vision, change in vision, eye pain or Light sensitivity ENT ENT: No abnormal hearing, ear or mastoid pain, tinnitus, nasal congestion, headache(s), neck pain or sore throat Resp Respiratory: No cough, shortness of breath, snoring or wheezing Cardio Cardiology: No chest pain at rest, chest pain with exertion, excessive sweating, shortness of breath, dyspnea on exertion, lightheadedness, orthopnea or palpitations Gastro GI: No abdominal pain, change in bowel habits, constipation, cramping, diarrhea, nausea/dyspepsia or vomiting Genitourinary-Female: No burning urination, painful urination, urinary incontinence, urinary frequency, blood in urine, abnormal periods or pelvic pain Musc Musculoskeletal: No abnormal gait, joint pain, back pain, limited range of motion, neck pain, numbness, stiffness, tingling or Arthritis Skin Skin: No dry skin, redness, lesions, itchy eyes, rash or wounds Neuro Neurology: No abnormal gait, abnormal hearing, abnormal speech, dizziness, weakness, frequent falls, headache(s), memory loss, numbness or tingling Psych Psychiatric: No anxiety, No change in appetite, No depression, No memory loss and No Thoughts of harming yourself/Others Endo Endocrine: No cold intolerance, excessive sweating, fatigue, flushing, heat intolerance, increased thirst/drinking, increased hunger or weight change Aller/Imm Allergy/Immunologic: No itchy e (more content not included)... Normal [facility] 02-01-2024 [facility] Office Visit ([facility] ) LIS ROBLEDO ([id number]) 1990 F Date Time Provider Department 02/01/24 10:15 AM YVONNE BESS During your visit today, we recorded the following information about you: Temperature Pulse Respiration Blood pressure 98.5 degrees 70/minute 18/minute 116/75 Weight 67 kg Sasha Grewal APRN.CNP 02/01/2024 10:34 AM Signed Complaints of left eye pain and blurred vision. Patient says she slept with her contacts in and then noticed it was very uncomfortable. Patient has taken the contact out and flushed the eye with no relief. Patient is unable to make out objects says this is worse than her normal vision. Patient is being referred to the emergency room for full evaluation. Patient was okay with this care plan. Patient significant other will drive her. Allergies As of Date: 02/01/2024 (No Known Allergies) Date Reviewed: 02/01/2024 Reviewed by: Carlotta Hernandez MA - Fully Assessed Reason for Visit: Eye Problem [43] Cmt: L eye redness and irritation x1 day Primary Visit Diagnosis:Pain of left eye [H57.12] Prescriptions as of 02/01/2024 - fluticasone (FLONASE) 50 mcg/actuation nasal spray Use 2 Sprays in each nostril once daily. Rinse mouth after use. - levonorgestrel (MIRENA) 21 mcg/24 hours (8 yrs) 52 mg IUD 1 Each by INTRAUTERINE route as directed. - ibuprofen (MOTRIN) 200 mg tablet Take 400 mg by mouth every 6 hours as needed for pain. - acetaminophen (TYLENOL) 325 mg tablet Take 650 mg by mouth every 6 hours as needed. Facility-Administered Medications as of 02/01/2024 - NaCl 0.9% iv infusion - diphenhydrAMINE 50 mg injection (BENADRYL) - hydrocortisone sodium succinate (PF) 100 mg injection (Solu-CORTEF) - EPINEPHrine 1 mg/mL (1 mL) 0.3 mg injection Problem List As Of Date 02/01/2024 Noted Resolved High risk due to smoking in first tri*04/25/2014 04/30/2016 Supervision of normal [Z34.90] 04/25/2014 06/22/2014 complicated by prior cervical conizat*05/06/2014 04/30/2016 ASCUS with positive high risk HPV cervical [R87*05/13/2014 Supervision of other normal [Z34.80] 09/19/2014 07/31/2015 H/O section [Z98.891] 09/06/2015 04/30/2016 Hx successful (vaginal after cesarea*10/12/2020 05/29/2021 History of kidney stones [Z87.442] 10/12/2020 Quit smoking [Z87.891] 10/12/2020 10/18/2020 Patient request for diagnostic testing [Z01.89] 10/12/2020 08/29/2022 Dichorionic diamniotic twin in first *10/18/2020 05/29/2021 Current every day nicotine vapor product user [*10/18/2020 Encounter for sterilization [Z30.2] 02/07/2021 08/29/2022 Anemia complicating , second trimester*03/08/2021 08/29/2022 Encounter Status:Closed by SASHA GREWAL on 02/01/24 Normal [facility] Emergency Department Summary on 02-01-2024 Emergency Department Summary [facility] Medical Records Department [address] [place] [id number] Emergency Department Summary 02/01/24 MR#: [id number] Acct: [id number] Name: LIS ROBLEDO Rep #: [id number] : 1990 33 From: Jose E Cavanaugh DO PCP: Dr. Jacqueline Sharma MD Status:DEP ER Location: ED HPI History of Present Illness Chief Complaint: Eye Problem Narrative Narrative: Patient is a 33-year-old female with no stated medical history does wear contact lenses who on Friday night fell asleep with her contacts in. Since then, has been having significant irritation, feeling that there is a foreign body. Patient does have some pain on the eyelid. Yeah patient states that she feels like a cloudy sensation, as well as a foreign body sensation. Went to urgent care who referred her here [facility] Medical History (Updated 02/01/24 @ 12:01 by KARYNA Ibarra) Anxiety Anemia Wears contact lenses Wears partial dentures Wears dentures Alcohol use Marijuana use Migraine headache History of IBS Former smoker 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 Vaginal after Home Medications ???Medication ???Instructions ???Recorded ???Last Taken ???Type acetaminophen 325 mg tablet 650 mg PO Q4H PRN Pain 06/15/21 Unknown History (Tylenol) ibuprofen 600 mg tablet 1 tab PO Q8H PRN Pain 09/13/21 Unknown History levonorgestrel 20.4 mcg/24 hr (up 1 device intrauterine ONCE 08/29/22 Unknown History to 8 yrs) 52 mg intrauterine device (Liletta) ciprofloxacin HCl 0.3 % eye drops 2 drp LEFT EYE Q4H 5 days #5 mL 02/01/24 Unknown Rx Allergy/AdvReac Type Severity Reaction Status Date / Time No Known Allergies Allergy Verified 02/01/24 10:45 Family History (Updated 08/29/22 @ 13:[address] Jacqueline Sharma MD) Mother Migraine Hypertension Grandfather Prostate cancer CVA (cerebral vascular accident) Grandmother Skin cancer Breast cancer Brother Bipolar disorder Surgical History History of tubal ligation Previous section Social History (Updated 08/29/22 @ 11:[address] Jacqueline Sharma MD) household members: spouse and children current occupational status: employed current occupation: [employer] Smoking Status: Former smoker quit date: 05/22/21 pack-years: 10 Electronic Cigarette Use: with nicotine alcohol intake: current alcohol intake frequency: holidays/special occasions only substance use type: does not use do you feel safe at home: Yes ROS ROS ED ROS Narrative Constitutional: Negative for fever, chills, weight loss, weakness Eyes: Negative for vision loss, double vision. Positive for vision, pain ENT: Negative for any sore throat, ear pain, congestion Cardiovascular: Negative for any chest pain, tightness, palpitations Respiratory: Negative for any cough, sputum production, hemoptysis, dyspnea, dyspnea on exertion, orthopnea Gastrointestinal: Negative for any abdominal pain, nausea, vomiting, diarrhea, constipation, blood in stool, blood in vomit : Negative for any urinary frequency, dysuria, retention, blood in urine Muscle skeletal: Negative for any neck pain, back pain Neurological: Negative for any headache, syncope, dizziness Skin: Negative for any rashes, itching, abrasions, lacerations Psychiatric: Negative for any depression, anxiety, stress, suicidal ideation, homicidal ideation Hematologic: Negative for any excessive bruising, easy bleeding EXAM Physical Exam Narrative Exam Narrative: Vital signs reviewed. HEET: Head normocephalic atraumatic, TMs clear bilaterally. Posterior pharynx is clear, moist mucous membranes. Nares clear bilaterally. Pupils are equal reactive. I was able to use tetracaine, I was able to check the patient's pressure, the patient's pressure in her left eye was 14. Patient's fluorescein staining of the left eye did exhibit a corneal abrasion midline. There is no foreign body. There is no Sidel sign. Neck: Supple with no lymphadenopathy or tenderness. No signs of meningismus. Cardiac: Regular rate and rhythm no murmurs gallops or rubs, equal peripheral pulses bilaterally. Respiratory: Lungs clear to auscultation bilaterally. No chest tenderness. Abdomen: Soft, nontender, nondistended. No abdominal bruit or pulsatile masses. No hepatosplenomegaly Extremities: No peripheral edema, no signs of gross trauma or deformity. Active full range of motion of all extremities. Neuro: Cranial nerves II through XII intact, no focal neurological deficits. Skin: Clean dry and intact with no rash, purpura, petechiae, vesicles or pustules. Backs/flank: No CVA tenderness, no midline spinal tenderness, no deformity. Psych: Normal mood and affect. No SI, HI or acute psychosis. Const Vital Signs: (more content not included)... Normal [facility] CNOVon 09-08-2023 CNOV Office Visit (UCWSTR ) LIS ROBLEDO ([id number]) 1990 F Date Time Provider Department 09/08/23 4:30 PM OSVALDO KEBEDE UCWSTR During your visit today, we recorded the following information about you: Temperature Pulse Respiration Blood pressure 98 degrees 78/minute 21/minute 100/68 Weight 58.6 kg Osvaldo Kebede APRN.PORTAL DEVELOPER 09/08/2023 4:37 PM Signed Subjective HPI Nontoxic-appearing female presents to urgent care with chief complaint of upper respiratory tract like infection. Duration of symptoms 7 days. Associated symptoms sore throat, nasal congestion, nasal discharge and nonproductive cough. URI symptoms are improving. Ear pain is new. Presents today for evaluation of ear pain. Patient denies the use of any [id number] medications or home remedies for symptom management. Patient denies any productive cough, fever, chest pain, shortness of breath, pleuritic pain, rash, abdominal pain, nausea, vomiting or change in bowel or bladder habit. Denies chance of . Is not breast-feeding. Past medical history prescription medications allergies reviewed. .Patient presents with: Sinus Problem: Congestion, drainage, bilateral ear pain x 1 week PAST MEDICAL HISTORY Diagnosis Date Abnormal Pap smear of cervix Anemia Anemia complicating , second trimester 03/08/2021 03/08/21- HGB 9.4. Oral iron started. Repeat CBC at 32 weeks gestation. Order placed. 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 MEDICATIONS levonorgestrel (MIRENA) 21 mcg/24 hours (8 yrs) 52 mg IUD1 Each by INTRAUTERINE route as directed.Disp: 1 EachRfl: 0 ibuprofen (MOTRIN) 200 mg tabletTake 400 mg by mouth every 6 hours as needed for pain.Disp: Rfl: acetaminophen (TYLENOL) 325 mg tabletTake 650 mg by mouth every 6 hours as needed.Disp: Rfl: FAMILY HISTORY Problem Relation Age of Onset Hypertension Mother Migraines Mother No Known Problems Father Bipolar disorder Brother Breast Cancer Maternal Grandmother No Known Problems Maternal Grandfather No Known Problems Paternal Grandmother Cancer Paternal Grandfather Stroke Paternal Grandfather No Known Problems Daughter No Known Problems Daughter No Known Problems Son No Known Problems Son Social History Tobacco Use Smoking status: Former Packs/day: 0.50 Years: 15.00 Additional pack years: 0.00 Total pack years: 7.50 Types: Cigarettes Quit date: 07/13/2020 Years since quittin.1 Smokeless tobacco: Never Tobacco comments: Vape Vaping Use Vaping Use: current everyday user Substances: Nicotine Devices: Disposable Substance Use Topics Alcohol use: Not Currently Alcohol/week: 3.0 standard drinks of alcohol Types: 3 Cans of Beer (12oz) per week Drug use: No BP 100/68 Pulse 78 Temp 36.7 ?C (98 ?F) Resp 21 Wt 58.6 kg (129 lb 3 oz) LMP 08/22/2021 (Exact Date) SpO2 98% BMI 23.21 kg/m? Review of Systems Constitutional: Negative for chills, fever and malaise/fatigue. HENT: Positive for congestion and ear pain. Negative for ear discharge, sinus pain and sore throat. Eyes: Negative for blurred vision, pain, discharge and redness. Respiratory: Positive for cough. Negative for hemoptysis, sputum production, shortness of breath, wheezing and stridor. Cardiovascular: Negative for chest pain. Gastrointestinal: Negative for abdominal pain, diarrhea, nausea and vomiting. Musculoskeletal: Negative for myalgias. Skin: Negative for itching and rash. Neurological: Negative for dizziness and headaches. Objective Physical Exam Constitutional: General: She is not in acute distress. Appearance: She is not diaphoretic. HENT: Head: Normocephalic. Jaw: No trismus, tenderness, swelling or pain on movement. Right Ear: Tympanic membrane, ear canal and external ear normal. Left Ear: Tympanic membrane, ear canal and external ear normal. Ears: Comments: Clear fluid noted behind bilateral TMs. Nose: Congestion present. Mouth/Throat: Mouth: Mucous membranes are moist. Pharynx: Oropharynx is clear. Uvula midline. No pharyngeal swelling, oropharyngeal exudate, posterior oropharyngeal erythema or uvula swelling. Eyes: Conjunctiva/sclera: Conjunctivae normal. Pupils: Pupils are equal, round, and reactive to light. Cardiovascular: Rate and Rhythm: Normal rate and regular rhythm. Heart sounds: Normal heart sounds. Pulmonary: Effort: Pul (more content not included)... Normal [facility] CNOVon 06-26-2023 CNOV Office Visit (PODIWS ) LIS ROBLEDO ([id number]) 1990 F Date Time Provider Department 06/26/23 1:45 PM GUSTAVO VIDAL PODIWS During your visit today, we recorded the following information about you: Uzma Martini RN 06/27/2023 9:51 AM Signed AMB ROOMING INTAKE FLOWSHEET DATA Pain Pain Level: 4 Pain Location: Foot-Right Description: Stabbing, Dull, Throbbing Duration Amount of Time: 1.5 Duration Units: Months Frequency: Intermittent Intervention/Comfort measure: Reposition, Relaxation, Massage Patient presents with: Right Foot - New, Pain Patient c/o R foot pain that started a month ago. Was constant and pretty severe for 2 weeks and then got somewhat better. No injury. XR completed today. Gustavo Vidal 06/27/2023 9:51 AM Signed Initial Podiatric Office Visit: Chief Complaint: This 32 year old female who presents with chief complaint:right foot pain HPI Patient presents to clinic for evaluation of right foot Patient has been experiencing pain along the medial aspect of right ankle extending down her arch Has been present for about one month States the pain 2 weeks ago was constant. Did purchse shoes with memory foam inserts and that has helped. She will still get a burning pain down her ankle extending to her toes. Patient currently vapes. PAIN EVALUATION 06/26/2023 1351 Pain Level: 4 Pain Location: Foot-Right Description: Stabbing;Dull;Throbbing Duration Amount of Time: 1.5 Duration Units: Months Frequency: Intermittent Intervention/Comfort measure: Reposition;Relaxation;M assage No results found for: HBA1C PCP: No primary care provider on file. PAST MEDICAL HISTORY Diagnosis Date Abnormal Pap smear of cervix Anemia Anemia complicating , second trimester 03/08/2021 03/08/21- HGB 9.4. Oral iron started. Repeat CBC at 32 weeks gestation. Order placed. 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 ibuprofen (MOTRIN) 200 mg tablet Take 400 mg by mouth every 6 hours as needed for pain. acetaminophen (TYLENOL) 325 mg tablet Take 650 mg by mouth every 6 hours as needed. Current Facility-Administered Medications Medication Dose Route Frequency NaCl 0.9% iv infusion 500 mL/hr INTRAVENOUS PRN diphenhydrAMINE 50 mg injection (BENADRYL) 50 mg INTRAVENOUS PRN hydrocortisone sodium succinate (PF) 100 mg injection (Solu-CORTEF) 100 mg INTRAVENOUS PRN EPINEPHrine 1 mg/mL (1 mL) 0.3 mg injection 0.3 mg INTRAMUSCULAR PRN ALLERGIES No Known Allergies PAST SURGICAL HISTORY Procedure Laterality Date DELIVERY ONLY 11/25/2014 , low transverse CONIZATION CERVIX W/WO DANDC RPR KNIFE/LASER 2006 DANOK, DIAG AND/OR THERAPEUTIC INSERTION OF IUD N/A 05/22/2016 paragard- removed 2020 LAPAROSCOPY W/RMVL ADNEXAL STRUCTURES Bilateral 09/20/2021 bilateral salpingectomy for sterilization- Liletta insertion VAGINOSCOPY 2007 FAMILY HISTORY Problem Relation Age of Onset Hypertension Mother Migraines Mother No Known Problems Father Bipolar disorder Brother Breast Cancer Maternal Grandmother No Known Problems Maternal Grandfather No Known Problems Paternal Grandmother Cancer Paternal Grandfather Stroke Paternal Grandfather No Known Problems Daughter No Known Problems Daughter No Known Problems Son No Known Problems Son Social History Tobacco Use Smoking status: Former Packs/day: 0.50 Years: 15.00 Additional pack years: 0.00 Total pack years: 7.50 Types: Cigarettes Quit date: 07/13/2020 Years since quittin.9 Smokeless tobacco: Never Tobacco comments: Vape Vaping Use Vaping Use: current everyday user Substances: Nicotine Devices: Disposable Substance Use Topics Alcohol use: Not Currently Alcohol/week: 3.0 standard drinks of alcohol Types: 3 Cans of Beer (12oz) per week Drug use: No REVIEW OF SYSTEMS GENERAL: Negative for Malaise, significant weight loss, fever RESPIRATORY: Negative for cough, wheezing and shortness of breath CARDIOVASCULAR: Negative for chest pain, leg swelling and palpitations GI: Negative for abdominal discomfort, blood in stools or black stools and change in bowel habits : Negative for dysuria, frequency and incontinence MUSCULOSKELETAL: Negative for joint pain or swelling, back pain, and muscle pain. SKIN: Negative for lesions, rash, and itching. HEMATOLOGY/LYMPHOLOGY Negative for prolonged bleeding, bruising easily, and swollen nodes. ENDOCRINE: Negative for cold or heat intolerance, polyuria, polydipsia and goiter. NEURO: negative Physical Exam: Constitutional: Pt is a well developed 32 year old female who is alert, oriented and cooperative Eyes: Following during examinat (more content not included)... Normal [facility] XR FOOT 3V AP/LAT/OBL RTon 0 06-26-2023 XR FOOT 3V AP/LAT/OBL RT * * *Final Repo rt* * * DATE OF EXAM: Jun 26 2023 1:07PM [id number] - XR FOOT 3V AP/LAT/OBL RT / PROCEDURE REASON: Pain * * * * Physician Interpretation * * * * EXAMINATION: XR FOOT 3V AP/LAT/OBL RT HISTORY: has always noticed right ankle rolls inward and has pain medial side of left heel and all along medial side of her foot no inj Pain . TECHNIQUE: XR FOOT 3V AP/LAT/OBL RT Laterality: RIGHT Number of different views (projections): 3 M: XB_1 COMPARISON: RESULT: Mild calcaneocuboid degenerative changes and minimal first TMT degenerative change. 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 Minimal degenerative changes in the toes. No acute fracture or dislocation. There are no bony erosions. IMPRESSION: Mild degenerative change. Machine Spreader: PSCB Transcribe Date/Time: Jun 29 2023 11:47A Dictated by : JACQUELINE SALMON MD This examination was interpreted and the report reviewed and electronically signed by: JACQUELINE SALMNO MD on Jun 29 2023 11:48AM EST [id number] Normal [facility] CNOVon 02-25-2023 CNOV Office Visit (UCWSTR ) LIS ROBLEDO ([id number]) 1990 F Date Time Provider Department 02/25/23 9:30 AM TIANNA ORTIZ [facility] During your visit today, we recorded the following information about you: Temperature Pulse Respiration Blood pressure 98.3 degrees 98/minute 18/minute 102/60 Weight 54.9 kg Tianna Ortiz APRN.PORTAL DEVELOPER 02/25/2023 10:10 AM Signed Subjective Sore Throat Associated symptoms include congestion and headaches. Pertinent negatives include no coughing, diarrhea, ear pain or vomiting. Lis Robledo is a 32 year old female who presents with 2 days of sore throat, body aches, fever, nasal congestion. She has not had any sick contacts. She has been taking Dayquil and using throat lozenges. Review of Systems Constitutional: Positive for chills, fever and malaise/fatigue. HENT: Positive for congestion and sore throat. Negative for ear pain. Respiratory: Negative for cough. Cardiovascular: Negative. Gastrointestinal: Negative for diarrhea, nausea and vomiting. Musculoskeletal: Positive for myalgias. Neurological: Positive for headaches. BP 102/60 Pulse 98 Temp 36.8 ?C (98.3 ?F) Resp 18 Wt 54.9 kg (121 lb) LMP 08/22/2021 (Exact Date) SpO2 98% BMI 21.74 kg/m? PAST MEDICAL HISTORY Diagnosis Date Abnormal Pap smear of cervix Anemia Anemia complicating , second trimester 03/08/2021 03/08/21- HGB 9.4. Oral iron started. Repeat CBC at 32 weeks gestation. Order placed. 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 MEDICATIONS levonorgestrel (MIRENA) 21 mcg/24 hours (8 yrs) 52 mg IUD1 Each by INTRAUTERINE route as directed.Disp: 1 EachRfl: 0 ibuprofen (MOTRIN) 200 mg tabletTake 400 mg by mouth every 6 hours as needed for pain.Disp: Rfl: acetaminophen (TYLENOL) 325 mg tabletTake 650 mg by mouth every 6 hours as needed.Disp: Rfl: FAMILY HISTORY Problem Relation Age of Onset Hypertension Mother Migraines Mother No Known Problems Father Bipolar disorder Brother Breast Cancer Maternal Grandmother No Known Problems Maternal Grandfather No Known Problems Paternal Grandmother Cancer Paternal Grandfather Stroke Paternal Grandfather No Known Problems Daughter No Known Problems Daughter No Known Problems Son No Known Problems Son Social History Tobacco Use Smoking status: Former Packs/day: 0.50 Years: 15.00 Additional pack years: 0.00 Total pack years: 7.50 Types: Cigarettes Quit date: 07/13/2020 Years since quittin.6 Smokeless tobacco: Never Tobacco comments: Vape Vaping Use Vaping Use: current everyday user Substances: Nicotine Devices: Disposable Substance Use Topics Alcohol use: Not Currently Alcohol/week: 3.0 standard drinks of alcohol Types: 3 Cans of Beer (12oz) per week Drug use: No Objective Physical Exam Vitals and nursing note reviewed. Constitutional: General: She is not in acute distress. Appearance: She is ill-appearing. HENT: Right Ear: Tympanic membrane, ear canal and external ear normal. Left Ear: Tympanic membrane, ear canal and external ear normal. Nose: Nose normal. Mouth/Throat: Mouth: Mucous membranes are moist. Pharynx: Uvula midline. Posterior oropharyngeal erythema present. No oropharyngeal exudate. Cardiovascular: Rate and Rhythm: Normal rate and regular rhythm. Heart sounds: Normal heart sounds. Pulmonary: Effort: Pulmonary effort is normal. No respiratory distress. Breath sounds: Normal breath sounds. No wheezing or rales. Musculoskeletal: Cervical back: Neck supple. Lymphadenopathy: Cervical: No cervical adenopathy. Skin: General: Skin is warm and dry. Findings: No erythema or rash. Neurological: Mental Status: She is alert. ASSESSMENT/PLAN: 1. Sore throat - ICD9: 462, ICD10: J02.9 (primary diagnosis) - Group A strep molecular testing positive - Amoxicillin for 10 days. - Discussed supportive care treatment with fluids, rest and analgesia. - The patient may also use warm salt water gargles, throat lozenges and/or OTC throat spray as needed. - Contagious dz precautions discussed- including considered contagious until on antibiotics for 24 hours - STREP A MOLECULAR (POC) 2. Strep throat - ICD9: 034.0, ICD10: J02.0 - AMOXICILLIN 500 MG CAPSULE - Follow-up with your PCP in 3-5 days if symptoms have not improved or sooner if symptoms worsen - Discussed red flags a (more content not included)... Normal [facility] STREP A MOLECULAR (POC)on Procedural Control Valid [facility] Strep A (POCT) Positive Abnormal Negative [facility] Basophil percentageOrdered B y: Jacqueline Sharma on 10-18-2022 Basophil percentage < 0.2 AI 0.0-0.9 [facility] No Panel InformationOrdered By: Jacqueline Sharma on 10-18-2022 Centromere B Antibody <0.2 AI 0.0-0.[address] [facility] APPLICATIONS ADMINISTRATOR Antibody 0.2 AI 0.0-0.9 [facility] Serum DNA double strand anti body assay (units/volume)Ordered By: Jacqueline Sharma on 10-18-2022 DNA double strand Ab Qn (S) 1 [IU]/mL 0-9 [facility] Comment on above: Negative <5 Equivoca l 5 - 9 Positive >9 Serum Elma-1 antibody assay (u nits/volume)Ordered By: Jacqueline Sharma on 10-18-2022 Elma-1 extractable nuclear Ab Qn (S) <0.2 AI 0.0-0.9 [facility] Serum Scl-70 extractable nuc lear antibody assay (units/volume)Ordered By: Jacqueline Sharma on 10-18-2022 SCL-70 extractable nuclear Ab Qn (S) <0.2 AI 0.0-0.9 [facility] Serum [place]cor[place] extractable nucl ear antibody detectionOrdered By: Jacqueline Sharma on 10-18-2022 [place] extractable nuclear Ab Ql (S) <0.2 AI 0.0-0.9 [facility] Absolute lymphocyte countOrd ered By: Jacqueline Sharma on 08-29-2022 Lymphocytes Auto (Unsp spec) [#/Vol] 1.58 10*3/uL 0.83-4.51 [facility] Basophil percentageOrdered B y: Jacqueline Sharma on 08-29-2022 Basophils/100 WBC (Bld) 0.8 % 0-1 [facility] Bilirubin [Mass/Vol] 0.40 mg/dL 0.20-1.00 [facility] Comment on above: For patients on eltr ombopag therapy, use of Dimension [place] TBIL is not recommended. Chloride [Moles/Vol] 111 mmol/L 98-107 [facility] Eosinophils/100 WBC (Bld) 4.3 % 0-5 [facility] Glucose [Mass/Vol] 94 mg/dL 74-106 [facility] Neutrophils (Bld) [#/Vol] 3.9 10*3/uL 2.0-7.7 [facility] Neutrophils/100 WBC (Bld) 63.2 % 47-70 [facility] Potassium [Moles/Vol] 3.9 mmol/L 3.5-5.[address] [facility] Protein [Mass/Vol] 6.9 g/dL 6.4-8.2 [facility] Sodium [Moles/Vol] 141 mmol/L 136-145 [facility] WBC (Bld) [#/Vol] 6.2 10*3/uL 4.4-11.0 [facility] Blood erythrocytes count (nu mber/volume)Ordered By: Jacqueline Sharma on 08-29-2022 RBC (Bld) [#/Vol] 4.23 10*6/uL 4.2-5.4 [facility] Blood hemoglobin measurement (mass/volume)Ordered By: Jacqueline Sharam on 08-29-2022 Hemoglobin (Bld) [Mass/Vol] 12.5 g/dL 12.0-15.0 [facility] Blood lymphocytes/100 leukoc ytesOrdered By: Jacqueline Sharma on 08-29-2022 Lymphocytes/100 WBC (Bld) 25.3 % 19-41 [facility] Blood monocytes/100 leukocyt esOrdered By: Jacqueline Sharma on 08-29-2022 Monocytes/100 WBC (Bld) 6.1 % 0-10 [facility] Blood platelet mean volumeOr dered By: Jacqueline Sharma on 08-29-2022 Platelet mean volume (Bld) [Entitic vol] 11.2 fL 6.2-12.0 [facility] Determination of erythrocyte mean corpuscular volume (MCV)Ordered By: Jacqueline Sharma on 08-29-2022 MCV (RBC) [Entitic vol] 92.0 fL 81-99 [facility] Erythrocyte sedimentation ra teOrdered By: Jacqueline Sharma on 08-29-2022 ESR (Bld) [Velocity] 2 mm/h 0-30 [facility] HIV 1 and HIV-2 antibody ass ay with HIV-1 p24 antigen detectionOrdered By: Jacqueline Sharma on 08-29-2022 HIV 1+2 Ab+HIV1 p24 Ag IA Ql Non-Reactive Nonreactive [facility] Hematocrit Auto (Bld) [Volum e fraction]Ordered By: Jacqueline Sharma on 08-29-2022 Hematocrit (Bld) [Volume fraction] 38.9 % 37-47 [facility] Iron measurement (mass/mass) Ordered By: Jacqueline Sharma on 08-29-2022 Iron (Unsp spec) [Mass/Mass] 67 ug/dL 50-170 [facility] Laboratory - Chemistry and C hemistry - challengeOrdered By: Jacqueline Sharma on 08-29-2022 ALP [Catalytic activity/Vol] 42 U/L 45-117 [facility] ALT [Catalytic activity/Vol] 17 U/L 13-56 [facility] CO2 [Moles/Vol] 25.0 mmol/L 21.0-32.0 [facility] Globulin (S) [Mass/Vol] 3.4 g/dL 2.2-4.2 [facility] Urea nitrogen/Creatinine [Mass ratio] 7.9 mg/mg 10-20 [facility] Laboratory - Hematology and Cell countsOrdered By: Jacqueline Sharma on 08-29-2022 Erythrocyte distribution width (RBC) [Entitic vol] 44.0 fL 35.1-43.9 [facility] Erythrocyte distribution width (RBC) [Ratio] 13.1 % 11.6-14.6 [facility] Immature granulocytes/100 WBC (Bld) 0.300 % 0.0-0.9 [facility] Comment on above: IG% - Immature Granu locytes (promyelocytes, myelocytes and metamyelocytes) > 1% indicates that a LEFT SHIFT is Present. MCH (RBC) [Entitic mass] 29.6 pg 27.0-32.0 [facility] Nucleated RBC/100 WBC (Bld) [Ratio] 0 % 0-5 [facility] MCHC Auto (RBC) [Mass/Vol]Or dered By: Jacqueline Sharma on 08-29-2022 MCHC (RBC) [Mass/Vol] 32.1 g/dL 32-[address] [facility] No Panel InformationOrdered By: Jacqueline Sharma on 08-29-2022 Estimated GFR (MDRD) Amer 112 mL/min >60 [facility] Comment on above: GFR Calc Estimated GFR (MDRD) Non-Af Amer 93 mL/min >60 [facility] Comment on above: Non- GFR Calc Hepatitis A IgM Antibody Negative Negative [facility] Hepatitis B Core IgM Antibody Negative Negative [facility] Hepatitis C Antibody (EIA) Non-Reactive Non Reactive [facility] Hepatitis C Antibody Comment Comment . [facility] Comment on above: Not infected with HC V unless early or acute infection issuspected (which may be delayed in an immunocompromisedindividual), or other evidence exists to indicate HCVinfection.Performed at: [facility] [id number] Director: Ran Garcia PhD, Phone: [phone] Thyroid Stimulating Hormone (TSH) 3.36 uIU/mL 0.358-3.74 [facility] Total Iron Binding Capacity 345 ug/dL 250-450 [facility] Vitamin D 25-Hydroxy 35.4 ng/mL [facility] Comment on above: Vitamin D 25(OH) Sta tus Range Deficiency <20 ng/mL (50nmol/L) Insufficiency 20 - 30 ng/mL (50 - 75 nmol/L) Sufficiency 30 - 100 ng/mL (75 - 250 nmol/L) Toxicity >100 ng/mL (>250 nmol/L) Platelets bldOrdered By: Serge Sharma on 08-29-2022 Platelets (Bld) [#/Vol] 298 10*3/uL 150-450 [facility] Serum nuclear antibody titer by immunofluorescenceOrdered By: Jacqueline Sharma on 08-29-2022 Nuclear Ab IF (S) [Titer] See comment [facility] Comment on above: TEST RESULTS LIMITSA NA by IFA Rfx Titer/Pattern Positive Abnormal Negative < 1:80 Borderline 1:80 Positive > 1:80Nucleolar Pattern 1:160 High ICAP nomenclature: AC-8,9,10For more information about Hep-2 cell patterns useANApatterns.org, the official website for the InternationalConsensus on Antinuclear Antibody (GAVIN) Patterns (ICAP). ------- Note: A positive GAVIN result may occur in healthy individualsor be associated with a variety of diseases. Seeinterpretation below:Pattern Antigen Detected Suggested Disease Association Homogenous DNA(ds,ss,n), High titers - SLE (Smooth) Histone Speckled Sm,APPLICATIONS ADMINISTRATOR,SCL-70, SLE,MCTD, Scleroderma, SS-A/SS-B Sjogrens Nucleolar SCL-70,PM-1/SCL High titers Scleroderma Polymyositis/scleroderma over- lap Centromere Centromere PSS w/Crest syndrome variable Nuclear Dot Sp100,s90-[id number] Primary Biliary Cirrhosis Nuclear GP210, Primary Biliary CirrhosisMembrane yousuf A,B,C TESTING PERFORMED AT [facility]. ORIGINAL REPORT ON FILE IN LAB CONTAINS ADDITIONAL TEST SITE INFORMATION. Serum or plasma albumin siria urement (mass/volume)Ordered By: Jacqueline Sharma on 08-29-2022 Albumin [Mass/Vol] 3.5 g/dL 3.2-5.0 [facility] Serum or plasma albumin/glob ulin mass ratioOrdered By: Jacqueline Sharma on 08-29-2022 Albumin/Globulin [Mass ratio] 1.0 {ratio} 0.9-2.4 [facility] Serum or plasma calcium siria urement (mass/volume)Ordered By: Jacqueline Sharma on 08-29-2022 Calcium [Mass/Vol] 8.9 mg/dL 8.5-10.1 [facility] Serum or plasma creatinine m easurement (mass/volume)Ordered By: Jacqueline Sharma on 08-29-2022 Creatinine [Mass/Vol] 0.76 mg/dL 0.55-1.[address] [facility] Comment on above: The validity of the calculated GFR & GFRAA in patients over 70 years has not been determined. Clinical correlation is essential. Serum or plasma ferritin mohsen surement (mass/volume)Ordered By: Jacqueline Sharma on 08-29-2022 Ferritin [Mass/Vol] 24 ng/mL 8-252 [facility] Serum or plasma hepatitis B virus surface antigen detection by immunoassayOrdered By: Jacqueline Sharma on 08-29-2022 HBV surface Ag IA Ql Negative Negative [facility] Serum or plasma iron saturat ion measurement (mass fraction)Ordered By: Jacqueline Sharma on 08-29-2022 Iron saturation [Mass fraction] 19.4 % 15.0-55.0 [facility] Serum or plasma urea nitroge n measurement (mass/volume)Ordered By: Jacqueline Sharma on 08-29-2022 Urea nitrogen [Mass/Vol] 6 mg/dL 7-18 [facility] Thin prep Papanicolaou smear with manual screeningOrdered By: Jacqueline Sharma on 08-29-2022 Thin prep Papanicolaou smear with manual screening 7 U/L 15-37 [facility] Thin prep Papanicolaou smear with manual screening 5 5-[address] [facility] [address] ABD/PEL W IVCONon 022 [facility] XR RIBS/CHEST 3V AP RIB/OBLS /CXR LEFTon 01-23-2022 [facility] XR Ribs - left Views and Kathy st PAon 01-23-2022 IMPRESSION: No acute abnormality. Machine Spreader: PSCB Transcribe Date/Time: Jan 23 2022 6:55P Dictated by : CARMINA GREENBERG MD This examination was interpreted and the report reviewed and electronically signed by: CARMINA GREENBERG MD on Jan 23 2022 6:56PM [facility] DIVISION OF RADIOLOGY * * *Final Report* * * DATE OF EXAM: Jan 23 2022 6:50PM WOX [id number] - XR RIB/CHST 3V AP RIB/OBL/CHST L / PROCEDURE REASON: Rib pain * * * * Physician Interpretation * * * * PROCEDURE: Left RIBS with chest INDICATION: Rib pain .left-sided rib pain and intermittent bulge that appears then subsides at base of rib cage in left of center rib area after pt bends forward. TECHNIQUE: XR RIB/CHST 3V AP RIB/OBL/CHST L COMPARISON: None FINDINGS: Cardiomediastinal silhouette is within normal limits. No consolidation, pleural effusion or pneumothorax. The left ribs are intact without acute fracture, sclerotic or lytic lesion. DIVISION OF RADIOLOGY Provider, Beba Burrell [facility] - 01/23/2022 * * *Final Report* * * DATE OF EXAM: Jan 23 2022 6:50PM WOX 5243 - XR RIB/CHST 3V AP RIB/OBL/CHST L / PROCEDURE REASON: Rib pain * * * * Physician Interpretation * * * * PROCEDURE: Left RIBS with chest INDICATION: Rib pain .left-sided rib pain and intermittent bulge that appears then subsides at base of rib cage in left of center rib area after pt bends forward. TECHNIQUE: XR RIB/CHST 3V AP RIB/OBL/CHST L COMPARISON: None FINDINGS: Cardiomediastinal silhouette is within normal limits. No consolidation, pleural effusion or pneumothorax. The left ribs are intact without acute fracture, sclerotic or lytic lesion. IMPRESSION IMPRESSION: No acute abnormality. Machine Spreader: PSCB Transcribe Date/Time: Jan 23 2022 6:55P Dictated by : CARMINA GREENBERG MD This examination was interpreted and the report reviewed and electronically signed by: CARMINA GREENBERG MD on Jan 23 2022 6:56PM [facility] Radiology Study observation (narrative) Raoul Mckeon XR Ribs - left Views and Kathy st PAOrdered By: Beba Provider on 01-23-2022 [facility] Laboratory - Chemistry and C hemistry - challengeon 09-20-2021 HCG ( test) Ql (U) Negative [facility] Work Phone: Comment on above: Very dilute urine sp ecimens, as indicated by a low specificgravity, may not contain agency service representative levels of hCG. If is still suspected, a first morning urinespecimen should be collected 48 hours later and tested. Basophil percentageon 2021 WBC (Bld) [#/Vol] 11.2 10*3/uL 4.4-11.0 [facility] Work Phone: Blood erythrocytes count (nu mber/volume)on 2021 RBC (Bld) [#/Vol] 4.33 10*6/uL 4.2-5.4 [facility] Work Phone: Blood hemoglobin measurement (mass/volume)on 2021 Hemoglobin (Bld) [Mass/Vol] 12.6 g/dL 12.0-15.0 [facility] Work Phone: Blood platelet mean volumeon 2021 Platelet mean volume (Bld) [Entitic vol] 10.8 fL 6.2-12.0 [facility] Work Phone: Determination of erythrocyte mean corpuscular volume (MCV)on 2021 MCV (RBC) [Entitic vol] 88.0 fL 81-99 [facility] Work Phone: Hematocrit Auto (Bld) [Volum e fraction]on 2021 Hematocrit (Bld) [Volume fraction] 38.1 % 37-47 [facility] Work Phone: Laboratory - Hematology and Cell countson 2021 Erythrocyte distribution width (RBC) [Entitic vol] 45.3 fL 35.1-43.9 [facility] Work Phone: Erythrocyte distribution width (RBC) [Ratio] 14.1 % 11.6-14.6 [facility] Work Phone: MCH (RBC) [Entitic mass] 29.1 pg 27.0-32.0 [facility] Work Phone: [phone] MCHC Auto (RBC) [Mass/Vol]on 2021 MCHC (RBC) [Mass/Vol] 33.1 g/dL 32-36 [facility] Work Phone: [phone] Platelets bldon 2021 Platelets (Bld) [#/Vol] 327 10*3/uL 150-450 [facility] Work Phone: [phone] Basophil percentageon 2021 WBC (Bld) [#/Vol] 13.0 10*3/uL 4.4-11.0 [facility] Work Phone: [phone] Blood erythrocytes count (nu mber/volume)on 05-16-2021 RBC (Bld) [#/Vol] 3.52 10*6/uL 4.2-5.4 [facility] Work Phone: [phone] Blood hemoglobin measurement (mass/volume)on 05-16-2021 Hemoglobin (Bld) [Mass/Vol] 10.5 g/dL 12.0-15.0 [facility] Work Phone: [phone] Blood platelet mean volumeon 05-16-2021 Platelet mean volume (Bld) [Entitic vol] 11.8 fL 6.2-12.0 [facility] Work Phone: Determination of erythrocyte mean corpuscular volume (MCV)on 05-16-2021 MCV (RBC) [Entitic vol] 89.2 fL 81-99 [facility] Work Phone: [phone] Hematocrit Auto (Bld) [Volum e fraction]on 05-16-2021 Hematocrit (Bld) [Volume fraction] 31.4 % 37-47 [facility] Work Phone: [phone] Laboratory - Hematology and Cell countson 05-16-2021 Erythrocyte distribution width (RBC) [Entitic vol] 55.4 fL 35.1-43.9 [facility] Work Phone: [phone] Erythrocyte distribution width (RBC) [Ratio] 17.2 % 11.6-14.6 [facility] Work Phone: MCH (RBC) [Entitic mass] 29.8 pg 27.0-32.0 [facility] Work Phone: MCHC Auto (RBC) [Mass/Vol]on 05-16-2021 MCHC (RBC) [Mass/Vol] 33.4 g/dL 32-36 [facility] Work Phone: Platelets bldon 05-16-2021 Platelets (Bld) [#/Vol] 179 10*3/uL 150-450 [facility] Work Phone: Absolute lymphocyte counton 05-15-2021 Lymphocytes Auto (Unsp spec) [#/Vol] 1.22 10*3/uL 0.83-4.51 [facility] Work Phone: Basophil percentageon 2021 Basophils/100 WBC (Bld) 0.3 % 0-1 [facility] Work Phone: Eosinophils/100 WBC (Bld) 0.7 % 0-5 [facility] Work Phone: Neutrophils (Bld) [#/Vol] 6.7 10*3/uL 2.0-7.7 [facility] Work Phone: Neutrophils/100 WBC (Bld) 77.3 % 47-70 [facility] Work Phone: Blood lymphocytes/100 leukoc yteson 05-15-2021 Lymphocytes/100 WBC (Bld) 14.1 % 19-41 [facility] Work Phone: Blood monocytes/100 leukocyt eson 05-15-2021 Monocytes/100 WBC (Bld) 7.0 % 0-10 [facility] Work Phone: Laboratory - Hematology and Cell countson 05-15-2021 Immature granulocytes/100 WBC (Bld) 0.600 % 0.0-0.9 [facility] Work Phone: Comment on above: IG% - Immature Granu locytes (promyelocytes, myelocytes and metamyelocytes) > 1% indicates that a LEFT SHIFT is Present. Nucleated RBC/100 WBC (Bld) [Ratio] 0 % 0-5 [facility] Work Phone: No Panel Informationon 05-15 SARS-CoV-2 Antigen (Rapid) [facility] Work Phone: Bilirubin Test strip Ql (U)o n 04-09-2021 Bilirubin Ql (U) Negative Negative [facility] Work Phone: fibronectinon 04-09-19 Fibronectin. (Vag fld) [Mass/Vol] Positive [facility] Work Phone: Comment on above: CRITICAL VALUE VERIF IED. CALLED TO MAGNUS SHAH04/09/21 1335 Chema Chappell.RESULTS READ BACK BY SAME . Previous reported result: POSITIVE Edited by: JANET on 04/09/21:1335 AMENDED REPORT 04/09/21 1335 fFN previously reported as: POSITIVE H Ketones Test strip Ql (U)on 04-09-2021 Ketones Ql (U) Negative Negative [facility] Work Phone: Nitrite Test strip Ql (U)on 04-09-2021 Nitrite Ql (U) Negative Negative [facility] Work Phone: No Panel Informationon 04-09 Group B Streptococcus Culture Group B Beta Streptococcus is not isolated. [facility] Work Phone: Specimen Comment (Misc) Not Reportable [facility] Work Phone: Protein Test strip Ql (U)on 04-09-2021 Protein Ql (U) Negative Negative [facility] Work Phone: Thin prep Papanicolaou smear with manual screeningon 04-09-2021 Thin prep Papanicolaou smear with manual screening Negative Negative [facility] Work Phone: Urine blood detectionon 03-24 RBC Ql (U) Negative Negative [facility] Work Phone: Urine clarityon 04-09-2021 Clarity (U) Sl. Cloudy Clear [facility] Work Phone: Urine color determinationon 04-09-2021 Color (U) Yellow Yellow [facility] Work Phone: Urine glucose detectionon Glucose Ql (U) Normal mg/dl Normal [facility] Work Phone: Urine leukocyte esterase det ection by dipstickon 04-09-2021 Leukocyte esterase Test strip Ql (U) 25 /ul Negative [facility] Work Phone: [phone] Urine pHon 04-09-2021 pH (U) 8.0 [pH] [facility] Work Phone: Urine specific gravity measu rementon 04-09-2021 Specific gravity (U) [Rel density] 1.010 [facility] Work Phone: Urobilinogen Auto test strip Ql (U)on 04-09-2021 Urobilinogen Ql (U) Normal mg/dl Normal [facility] Work Phone: STRP SCNon 06-20-2019 STRP SCN STREP SCREEN NEGATIV E - CULTURE TO FOLLOW REFERENCE RANGE NORMAL RESULT IS NEGATIVE. [facility] Comment on above: Performed By: #### M 130.0600 #### [facility] - LABORATORY [address] [place] [address] [id number] THTon 06-20-2019 THT ORGANISM 1: NO GROUP A BETA STREP ISOLATED [facility] Comment on above: Performed By: #### M 130.0700 #### [facility] - LABORATORY [address] [place] [id number] EMERGENCY DEPARTMENT REPORTo n 04-16-2019 EMERGENCY [place] [address] HEALTH INFORMATION MANAGEMENT EMERGENCY DEPARTMENT REPORT Patient: LIS MORENO JOEL A M.D. [id number] [age] F Status: DEP ER ED Date of Service: 04/15/19 CHIEF COMPLAINT: Headache. HISTORY OF PRESENT ILLNESS: 28-year-old female brought in today with headache, nausea, and vomiting. Headache started this morning. She has a history of migraines and says that she has been getting headaches on and off since she is 16 years old. Never been formally diagnosed with migraines. She gets photophobia. She has sage-cephalic headache with nausea and vomiting at times. REVIEW OF SYSTEMS: She denies any fevers, chills, or other constitutional symptoms. No visual acuity problems. No problems with ears, nose, mouth, throat. Denies any productive cough or cold symptoms. No bright red blood per rectum, melena, urinary symptoms. No extremity edema, swelling, skin rashes, focal numbness, weakness, confusion, hallucinations, hot or cold intolerance, or lymph node swelling. Review of systems otherwise negative. PAST MEDICAL HISTORY: Headaches as above, anxiety, and depression. MEDICATIONS: 1. Zoloft. 2. BuSpar. ALLERGIES: None. FAMILY HISTORY: For hypertension and cancer, and mom has migraines. SOCIAL HISTORY: She is . She smokes half pack a day. Does not use drugs or alcohol. PHYSICAL EXAMINATION: GENERAL: A well-nourished, well-developed female, who is awake, alert, currently not in acute distress. VITAL SIGNS: As charted. HEENT: Atraumatic and normocephalic. Oropharynx is moist. NECK: Supple, nontender. Trachea is midline. No JVD. CARDIOVASCULAR: Regular rate and rhythm. No murmurs, rubs, or gallops. LUNGS: Clear to auscultation bilaterally. ABDOMEN: Soft, nontender, and nondistended. Bowel sounds positive. EXTREMITIES: No clubbing, cyanosis, or edema. NEUROLOGIC: She is neurologically awake, alert, and oriented to person, place, and date. Moving all 4 extremities equally. Reflexes 2+ and symmetric. Toes are downgoing. There is normal [id number]-[id number] and yybh-[id number]-wpuh. EMERGENCY DEPARTMENT COURSE: She is given Benadryl, Compazine, and Toradol, and a liter of fluid, and was feeling much better. She is feeling good enough to go home and rest. She is discharged home to follow up with family doctor as needed or can see Dr. Meza on unassigned backup if needed. She should establish primary care physician to look into Imitrex or Maxalt. She can return if problems of any kind. Report#: Dict ID [id number] / Int ID [id number] 04/19/19 1214 DI MINER M.D. cc: DI MINER M.D.; No Physician << Signature on File>> Reported By: DI MINER M.D. Signed By: DI MINER M.D. Tests performed at: [address] [address] Normal [facility] EMERGENCY REPORTon 9 EMERGENCY REPORT [facility] EMERGENCY ROOM REPORT NAME ACCOUNT SEX AGE ADMIT DISCHARGE PT MED. RECORD# NUMBER DATE DATE TYPE LIS MORENO [id number] F 27 04/14/18 04/14/18 3 [id number] ROOM: ER DATE OF : 1990 DICTATING PHYSICIAN: Shaan Woodall CHIEF COMPLAINT: Patient came in complaining of dental pain to her left lateral incisor. HISTORY OF PRESENT ILLNESS: She is able to take it in and out. It is giving her pain. She thinks maybe it is infected because she has discomfort in that area. She denies any fevers, chills, nausea or vomiting. PAST MEDICAL HISTORY: She has had dental issues in the past. SOCIAL HISTORY: She does smoke. Denies alcohol use. REVIEW OF SYSTEMS: Six systems were reviewed and negative except as mentioned above. PHYSICAL EXAMINATION: Patient is awake, alert and oriented female in no acute distress. She is afebrile, blood pressure 127/83, pulse 83, respirations 16, pulse ox 100% on room air. Head is normocephalic, atraumatic. Eyes: Pupils are equal, round, and reactive to light. Extraocular muscles are intact. Nares are patent. Throat has adequate moisture. Uvula is midline. Neck is supple without petechiae or rash. Heart rate is regular without murmur. S1 equal to S2. No S3 or S4 appreciated. Lungs are clear to auscultation bilaterally. No rales, rhonchi, or retractions. Abdomen is soft, nontender, nondistended. Skin is warm and dry. She does have necrotic teeth which she has a prosthetic actually over the tooth. EMERGENCY DEPARTMENT COURSE AND TREATMENT: I did offer to inject it with Sensorcaine which she declined. I will write her for Pen-Vee K and 5 Percocet for severe pain to take at night. She can return if any problems or concerns. I also wrote her for Motrin for pain. DIAGNOSIS: Odontalgia. PLAN/DISPOSITION: She will be discharged in stable condition. Dictated By: Shaan Woodall DO 04/14/18 17:09 JOB #: [id number] Transcribed By: irvin Page 1 of 2 LIS MORENO Emergency Room Report 04/14/18 19:13 Electronically signed by: THONG Woodall D.O. 04/23/18 07:38 Page 2 of 2 LIS MORENO Emergency Room Report Normal [facility] ED PROV NOTEon 03-05-2018 Protein mass conc HNO ID: [id number]: Provider CchsService: (none)Author Type: PhysicianType: ED Provider NotesFiled: 03/05/2018 1:34 PMNote Text:[place], [place] [address]VJDCHT INFORMATION MANAGEMENTEMERGENCY DEPARTMENT REPORTPatient: LIS MORENO KATHY NP-C as dictated by TIANNA SIMMS NP-[id number]/ 27 FStatus: DEP ER EDDate of Service: 03/05/18CHIEF COMPLAINTLaceration of the index finger of the right hand.HISTORY OF PRESENT ILLNESSThe patient states that she was going to put the window down, did notrealize that there was a piece of broken glass sticking out of the windowthat she was working with, and she ended up lacerating the tip of herindex finger on her right hand on that piece of glass. She states therewere no small shards of glass, it was just a solid piece that was stillattached to the window. She states that she last had a tetanus shot 2years ago.ALLERGIESShe has no known drug allergies.SOCIAL HISTORYShe is . Denies any drug or alcohol use. She does smoke half apack a day.PAST SURGICAL HISTORYShe has had a .PAST MEDICAL HISTORYNo medical history other than anxiety, and she does take BuSpar oncedaily.PHYSICAL EXAMINATIONVitals are 109/74, temp of 98, pulse of 83, respirations of 18, 99% onroom air. Patient presents here with a laceration to the pad of her indexfinger of her right hand. The laceration is 1 cm in length. Edges arewell approximated. Wound does not appear grossly contaminated.PROCEDUREI did do a digital block of that finger using 1% lidocaine. I was able toachieve good anesthesia. Cleansed the wound with Hibiclens. Irrigatedwith normal saline copiously and repaired the laceration using 5-0Ethilon. It took 3 interrupted sutures to repair the wound. Bleedingwas controlled. Edges are well approximated. We did apply a dressing and some Bacitracin to the wound. She was given wound care instructions aswell as suture removal instructions in 7 to 10 days. Watch for signs ofinfection. Return to the ER for any concerns.IMPRESSIONRigh t index finger laceration with suture repair. 03/05/18 1332 TIANNA ROBISONCcc: TIANNA SIMMS << Signature on File>> Reported By: TIANNA SIMMS Signed By: TIANNA SIMMSCTests performed at:[address] [id number] Normal [facility] EMERGENCY REPORTon 8 EMERGENCY REPORT [facility] EMERGENCY ROOM REPORT NAME ACCOUNT SEX AGE ADMIT DISCHARGE PT MED. RECORD# NUMBER DATE DATE TYPE LIS MORENO [id number] F 27 11/13/17 11/13/17 3 [id number] ROOM: ER DATE OF : 1990 DICTATING PHYSICIAN: Craig Hernandez CHIEF COMPLAINT: Flank pain with nausea. HISTORY OF PRESENT ILLNESS: The patient states that she has been having some discomfort to the right side and flank area over the past 2 to 3 days. She has some mild urinary frequency with it. She was seen at an urgent care center last night and work-up was generally unremarkable. She was told if she continues to have pain to be seen in the ER. She states that she seems to have more pain. She has not had a fever or chills, but she does have nausea. No chest pain or shortness of breath. She has not had any kidney stones in the past. PAST MEDICAL HISTORY: Negative for any known medical problems. PAST SURGICAL HISTORY: She has had a previous . No other surgeries. MEDICATIONS: She takes no medications. ALLERGIES: No allergies. SOCIAL HISTORY: She lives at home. She does smoke. She does not drink alcohol. PHYSICAL EXAMINATION: This is a 27-year-old, thin white female who is alert and appropriate. She appears uncomfortable but not toxic. Her skin is pink, warm and dry. HEENT examination is all within normal limits. Her neck is supple without adenopathy. Lungs are clear without crackles or wheezes. Regular rhythm without ectopy, murmurs, gallops or rubs. Abdomen is soft. She does have some mild tenderness diffusely along the right abdomen. No guarding or rebound. No masses. She does have some right flank tenderness. She moves extremities appropriately without any focal weaknesses. Good peripheral pulses and capillary refill. Vital signs: Temperature is 99.1, pulse 82, respirations 18, and blood pressure 128/84. DIAGNOSTIC DATA: CT KUB was negative for calculi or any other acute inflammatory findings. Laboratories showed a normal CBC. CMP is essentially normal. Urinalysis did show positive nitrites, 11-15 WBCs, and 4+ bacteria. EMERGENCY DEPARTMENT COURSE AND TREATMENT: An IV of normal saline was placed. She was given a liter of IV fluid. She was given 15 mg of Toradol IV, Zofran orally and Dilaudid IV. We did get some laboratory studies and a CT KUB. The patient Page 1 of 2 LIS MORENO Emergency Room Report presents with a UTI with some systemic symptoms, probably pyelonephritis. She was given some Rocephin IV and will be discharged to home with a prescription for Bactrim, ibuprofen and [place]. She is to follow up with her family doctor in 1 to 2 days if no better, returning if symptoms worsen. Dictated By: Craig Hernandez MD 11/13/17 15:12 JOB #: [id number] Transcribed By: eric 11/14/17 10:24 Electronically signed by: THONG Hernandez M.D. 11/20/17 07:18 Page 2 of 2 LIS MORENO Emergency Room Report Normal [facility] CBCon 11-13-2017 Basophils #/vol (Bld) 0.10 x10EE3/UL Normal 0.00 - 0.1 0 [facility] Comment on above: Performed By: #### 2 31997 #### [facility],[address] [place] [address] 46365 Basophils/100 WBC (Bld) 1.2 % Normal 0.0 - 2.0 [facility] Comment on above: Performed By: #### 2 14596 #### [facility],[address] [place] [address] 86864 CBC Normal [facility] Comment on above: Result Comment: CBC- COMPLETE BLOOD COUNT Performed By: #### 2 78497 #### [facility],[address] [place] [address] 98106 Eosinophils #/vol (Bld) 0.30 x10EE3/UL Normal 0.00 - 0 .50 [facility] Comment on above: Performed By: #### 2 77116 #### [facility],[address] [place] [address] 94375 Eosinophils/100 WBC (Bld) 4.3 % Normal 0.0 - 7.0 [facility] Comment on above: Performed By: #### 2 81915 #### [facility],[address] [place] [address] 95781 Erythrocyte distribution width Ratio (RBC) 13.6 % Normal 12.0 - 15.6 [facility] Comment on above: Performed By: #### 2 43585 #### [facility],[address] [place] [address] 18852 Hematocrit Volume Fraction (Bld) 37.1 % Normal 34.0 - 46.0 [facility] Comment on above: Performed By: #### 2 04997 #### [facility],[address] [place] [address] 30504 Hemoglobin mass conc (Bld) 12.7 g/dL Normal 12.0 - 16.0 [facility] Comment on above: Performed By: #### 2 50737 #### [facility],[address] [place] [address] Lymphocytes #/vol (Bld) 2.00 x10EE3/UL Normal 0.80 - 2 .80 [facility] Comment on above: Performed By: #### 2 19472 #### [facility],[address] [place] [address] Lymphocytes/100 WBC (Bld) 26.2 % Normal 20.0 - 45. 0 [facility] Comment on above: Performed By: #### 2 21831 #### [facility],[address] [place] [address] MANUAL DIFF N/A Normal [facility] Comment on above: Performed By: #### 2 97835 #### [facility],[address] [place] [address] MCH Entitic mass (RBC) 30 pg Normal 27 - 33 [facility] Comment on above: Performed By: #### 2 52365 #### [place] [address] MCHC mass conc (RBC) 34 X10 3 Normal 32 - 36 [facility] Comment on above: Performed By: #### 2 40843 #### [facility],[address] [place] [address] MCV Entitic volume (RBC) 87 fL Normal 80 - 99 [facility] Comment on above: Performed By: #### 2 88277 #### [facility],[address] [place] [address] Monocytes #/vol (Bld) 0.60 x10EE3/UL Normal 0.20 - 1.0 0 [facility] Comment on above: Performed By: #### 2 18741 #### [facility],[address] [place] [address] MONOS % 7.4 % Normal 0.0 - 10.0 [facility] Comment on above: Performed By: #### 2 72848 #### [facility],[address] [place] [address] 33685 Morphology Interp Claudio (Bld) N/A Normal [facility] Comment on above: Result Comment: {CD] Performed By: #### 2 19038 #### [facility],[address] [place] [address] 33497 Neutrophils #/vol (Bld) 4.70 x10EE3/UL Normal 1.50 - 7 .10 [facility] Comment on above: Performed By: #### 2 50783 #### [facility],[address] [place] [address] 93655 Neutrophils/100 WBC (Bld) 60.9 % Normal 46.0 - 76. 0 [facility] Comment on above: Performed By: #### 2 95740 #### [facility],[address] [place] [address] 06585 Platelet mean volume Entitic volume (Bld) 8.3 fL Normal 6.6 - 10.5 [facility] Comment on above: Result Comment: AUTO MATED DIFFERENTIAL Performed By: #### 2 95796 #### [facility],[address] [place] [address] 10537 Platelets #/vol (Bld) 328 x10EE3/UL Normal 150 - 450 [facility] Comment on above: Performed By: #### 2 77885 #### [facility],[address] [place] [address] 28014 RBC #/vol (Bld) 4.25 x 10EE6/UL Normal 4.10 - 5.30 [facility] Comment on above: Performed By: #### 2 06485 #### [facility],[address] [place] [address] 09681 WBC #/vol (Bld) 7.7 x 10EE3/UL Normal 4.5 - 10.8 [facility] Comment on above: Performed By: #### 2 08668 #### [facility],[address] [place] [address] 07267 CMP with eGFRon 11-13-2017 Age Reported 27 years Normal [facility] Comment on above: Performed By: #### 2 57073 #### [facility],[address] [place] [address] 66572 Albumin mass conc 4.0 g/dL Normal 3.4 - 4.8 [facility] Comment on above: Performed By: #### 2 38052 #### [facility],[address] [place] [address] 14346 Albumin/Globulin mass ratio 1.6 {ratio} Normal 0.9 - 1.6 [facility] Comment on above: Performed By: #### 2 64203 #### [facility],[address] [place] [address] 56614 ALK PHOS 39 U/L Normal 38 - 126 [facility] Comment on above: Performed By: #### 2 94607 #### [facility],[address] [place] [address] 46658 ALT/SGPT 9 U/L Normal 8 - 35 [facility] Comment on above: Performed By: #### 2 35919 #### [facility],[address] [place] [address] 64111 Anion gap molar conc 10 mmol/L Normal 10 - 20 [facility] Comment on above: Performed By: #### 2 04315 #### [facility],[address] [place] [address] 44999 AST/SGOT 10 U/L Low 13 - 39 [facility] Comment on above: Performed By: #### 2 05680 #### [facility],[address] [place] [address] 97413 B/C RATIO 11 ratio Normal 0 - 30 [facility] Comment on above: Performed By: #### 2 40873 #### [facility],[address] [place] [address] 87891 Bilirubin mass conc 0.4 mg/dL Normal 0.0 - 1.5 [facility] Comment on above: Performed By: #### 2 38371 #### [facility],[address] [place] [address] 58065 Calcium mass conc 9.1 mg/dL Normal 8.6 - 10.2 [facility] Comment on above: Performed By: #### 2 32063 #### [facility],[address] [place], [place] [address] Chloride molar conc 108 mmol/L High 98 - 107 [facility] Comment on above: Performed By: #### 2 69818 #### [facility],[address] [place], [place] [address] CO2 molar conc 25.1 mmol/L Normal 21.0 - 31.0 [facility] Comment on above: Performed By: #### 2 42853 #### [facility],[address] [place] [address] 81878 Creatinine mass conc 0.8 mg/dL Normal 0.6 - 1.2 [facility] Comment on above: Performed By: #### 2 11537 #### [facility],[address] [place] [address] 99076 GFR/1.73 sq M predicted among non-blacks MDRD vol rate/area (S/P/Bld) mL/min/{1.73_m2} Normal 60 - 999 [facility] Comment on above: Performed By: #### 2 88082 #### [facility],[address] [place], [place] [id number] Result Comment: ACCO RDING TO THE NATIONAL KIDNEY DISEASE EDUCATION PROGRAM(NKDE), A NORMAL eGFR IS A VALUE GREATER THAN OR EQUAL TO 60 ML/MIN/1.73 SQ METERS. CHRONIC KIDNEY DISEASE: <60mL/MIN/1.73 SQ METERS KIDNEY FAILURE: <15mL/MIN/1.73 SQ METERS THIS TEST SHOULD ONLY BE USED FOR PATIENTS 18 YEARS OF AGE AND OLDER. GFR/1.73 sq M predicted among non-blacks MDRD vol rate/area (S/P/Bld) Normal [facility] Comment on above: Result Comment: COMP REHENSIVE METABOLIC PANEL Performed By: #### 2 99991 #### [facility],[address] [place] [address] 60967 Globulin mass conc (S) 2.5 g/dL Normal 1.5 - 3.8 [facility] Comment on above: Performed By: #### 2 15900 #### [facility],[address] [place] [address] 11712 Glucose mass conc 107 mg/dL High 74 - 106 [facility] Comment on above: Performed By: #### 2 93198 #### [facility],[address] [place] [address] 01381 Potassium molar conc 3.8 mmol/L Normal 3.5 - 5.1 [facility] Comment on above: Performed By: #### 2 43874 #### [facility],[address] [place] [address] 50882 Protein mass conc 6.5 g/dL Normal 6.4 - 8.3 [facility] Comment on above: Performed By: #### 2 60924 #### [facility],[address] [place] [address] 02230 Sodium molar conc 139 mmol/L Normal 136 - 145 [facility] Comment on above: Performed By: #### 2 59021 #### [facility],[address] [place] [address] 47187 Urea nitrogen mass conc 9 mg/dL Normal 6 - 20 [facility] Comment on above: Performed By: #### 2 76090 #### [facility],[address] [place] [address] KUB (KIDNEY STONE PROTOCO L)on 11-13-2017 Protein mass conc [place] [address] Patient: LIS MORENO Phone#: : 1990 Age: 27 Gender: F Pt. Type: ER Account: [id number] Location: 052 Ordering: CRAIG HERNANDEZ Exam Date: 11/13/2017/13:22 Family Phys: NO DOCTOR Charge Code: [id number] Physician: Darke Order #: [id number] DLP Dose#: PROCEDURE: CT ABDOMEN AND PELVIS WITHOUT CONTRAST COMPARISON: None. INDICATIONS: Abdominal pain TECHNIQUE: After obtaining the patient's consent, CT images of the abdomen and pelvis were created without non-ionic intravenous contrast material. All CT scans at this facility use dose modulation, iterative reconstruction, and/or weight based dosing when appropriate to reduce radiation dose to as low as reasonably achievable. IV CONTRAST: No IV contrast used,ml TOTAL DOSE: 5.4 CTDIvol(mGy) FINDINGS: KIDNEYS: A nonobstructing left renal calculus is present. There is no evidence of hydronephrosis. The right kidney is normal. There is no evidence of hydronephrosis or renal calculi. ADRENALS: Normal. No mass or enlargement. URINARY BLADDER: Normal. No visible focal wall thickening, lesion, or calculus. LIVER: Normal. No enlargement, atrophy, abnormal density, or significant focal lesion. BILIARY: Normal. No visible dilatation or calcification. PANCREAS: Normal. No lesion, fluid collection, ductal dilatation, or atrophy. SPLEEN: Normal. No enlargement or focal lesion. AORTA/VASCULAR: Normal. No aneurysm. RETROPERITONEUM: Normal. No mass or adenopathy. BOWEL/MESENTERY: Normal. No visible mass, obstruction, or bowel wall thickening. ABDOMINAL WALL: Normal. No mass or hernia. PELVIC NODES: Normal. No adenopathy. Continued Report - Page 2 of 2 Patient: LIS MORENO Phone#: : 1990 Age: 27 Gender: F Pt. Type: ER Account: [id number] Location: 052 Ordering: CRAIG HERNANDEZ Exam Date: 11/13/2017/13:22 Family Phys: NO DOCTOR Charge Code: 120605 Physician: Darke Order #: [id number] DLP Dose#: PELVIC ORGANS: An IUD is present. No visible mass. Pelvic organs appropriate for patient age. BONES: Normal. No bony lesion or fracture. LUNG BASES: Normal. No visible pulmonary or pleural disease. OTHER: Negative. CONCLUSION: 1. A nonobstructing left renal calculus is present. 2. No other ureteral or renal calculi are noted. Dictated by: Patsy Sierra MD on 11/13/2017 at 13:34 Approved by: Patsy Sierra MD on 11/13/2017 at 13:34 Normal [facility] CULTURE URINEon 11-13-2017 CULTURE URINE CULTURE URINE _URINE CULTURE_ M I C R O B I O L O G Y R E P O R T FINAL Antimicrobial Susceptibility and Organism Identification Report Specimen Number : [id number] Requested : 11/13/17 Specimen Source : CLEAN CATCH URINE Collected : 11/13/17 15:14 [facility] : Emergency Room Received : 11/13/17 15:14 Requesting Physician : LAZARUS ROSAS Patient/Specimen Tests and Comments Specimen Comments FINAL REPORT: URINE COLONY COUNT: 50,000-100,000 CFU/CC GRAM NEGATIVE RODS Organisms Identified -------- * 01 Klebsiella pneumoniae 11/16/17 Comments 50-100,000 cfu Tech : ___ Source : CLEAN CATCH URINE ID # : [id number] FINAL Report Date : / / : Collected : 11/13/17 15:14 Continued on Next Page Cayla I Genesis Botello B I O L O G Y R E P O R T FINAL Antimicrobial Susceptibility and Organism Identification Report Isolate 01 Klebsiella pneumoniae Klebsiella pneumoniae DRUG KING Sys. Urine --- ----- ----- Amp/Sulbactam <=8/4 S Ampicillin >16 R Aztreonam <=8 S Ceftriaxone <=8 S Ceftazidime <=1 S Cephalothin <=8 Ciprofloxacin <=1 S Cefuroxime <=4 S Ertapenem <=1 S Nitrofurantoin <=32 Gentamicin <=4 S Imipenem <=1 S Levofloxacin <=2 S Meropenem <=1 S Pip/Tazo <=16 S Piperacillin >64 R Trimeth/Sulfa <=2/38 S Tetracycline <=4 S Tobramycin <=4 S +, ++, +++, or S = Susceptible N/R = Not Reported Dalia = Beta Lactamase Positive I = Intermediate CC = Cost Code TFG = Thymidine-dependent Strain R = Resistant KING = mcg/ml (mg/L) Blank = Data not available, or drug not advisable or tested For Blood and CSF Isolates, a Beta-Lactamase test is recommended for Enterococus species. IB appears in place of S, I (S), +, ++, or +++ with species known to possess inducible B-lactamases; potentially they may become resistant to all B-lactam drugs. Monitoring of patients during/after therapy is recommended. Avoid other/combined B-lactam drugs. (a) Use maximum doses of drug with an aminoglycoside for P. aeruginosa in patients with granulocytopenia or serious infections. (b) Breakpoints based on parenteral dose. For cefuroxime Axetil (PO) use <8=S, 8-16=I, >16=R. (c) For non-enterococcal streptococci, Micrococcus species, and Listeria species, refer to the Ampicillin interpretation. * Interpretations based on approx. adult attainable systemic/urine levels, except drugs with <3 dilutions, which print NCCLS. Doses are guidelines; consider weight and renal/hepatic function. Urine interpretation for lower UTI only. Interpretations based on NCCLS M7-A2. Ticar/K Clav'ate for gram positives based on can labeler's breakpoints. Tech : ___ Source : CLEAN CATCH URINE ID # : [id number] FINAL Report Date : / / : Collected : 11/13/17 15:14 11/16/17.910.JLN. 11/15/17.43.JLN. 11/16/17.910.JLN.COMPL ETE Normal [facility] Comment on above: Performed By: #### 2 47098 #### [facility],[address] [place] [address] SERUM QUALon 11-13 EXTERNAL QC DONE? YES Normal [facility] Comment on above: Performed By: #### 2 55969 #### [place] [address] INTERNAL QC PASS Normal [facility] Comment on above: Performed By: #### 2 66663 #### [facility],[address] [place] [address] SER Negative Normal NEGATIVE [facility] Comment on above: Performed By: #### 2 31340 #### [facility],[address] [place], [place] [id number] URINALYSISon 11-13-2017 Amorphous NONE Normal [facility] Comment on above: Performed By: #### 2 51192 #### [facility],[address] [place] [address] Bacteria LM.HPF #/area (Urine sed) 4+ Normal [facility] Comment on above: Performed By: #### 2 71306 #### [facility],[address] [place], [place] [phone] Bilirubin mass conc Negative Normal NORMAL: NEGATIVE [facility] Comment on above: Performed By: #### 2 50716 #### [facility],[address] [place], [place] [phone] Blood 10 Abnormal NORMAL: NEGATIVE [facility] Comment on above: Performed By: #### 2 79594 #### [facility],[address] [place] [address] Casts LM.LPF #/area (Urine sed) NONE Normal [facility] Comment on above: Performed By: #### 2 05213 #### [facility],[address] [place] [address] Clarity Nom (U) sl.cloudy Normal NORMAL: CLEAR [facility] Comment on above: Performed By: #### 2 17478 #### [facility],[address] [place] [address] Color Nom (U) liam Normal NORMAL: YELLOW [facility] Comment on above: Performed By: #### 2 87550 #### [facility],[address] [place], [place] [phone] Crystals LM Nom (Urine sed) NONE Normal [facility] Comment on above: Performed By: #### 2 94944 #### [facility],[address] [place], [place] [phone] Epi Cells MANY Normal [facility] Comment on above: Performed By: #### 2 16814 #### [facility],[address] [place], [place] [id number] Glucose mass conc NORM Normal NORMAL: NORMAL [facility] Comment on above: Performed By: #### 2 52944 #### [facility],[address] [place], [place] [id number] Ketone 5 Abnormal NORMAL: NEGATIVE [facility] Comment on above: Performed By: #### 2 86947 #### [facility],[address] [place] [address] Microscopic SEE BELOW Normal [facility] Comment on above: Result Comment: MICR OSCOPIC Performed By: #### 2 62657 #### [facility],[address] [place] [address] Mucous NONE Normal [facility] Comment on above: Performed By: #### 2 34767 #### [facility],[address] [place] [address] Nitrite Ql (U) Positive Normal NORMAL: NEGATIVE [facility] Comment on above: Performed By: #### 2 09736 #### [facility],[address] [place] [address] pH (Bld) 5 Normal NORMAL: 5.0-8.0 [facility] Comment on above: Performed By: #### 2 90006 #### [facility],[address] [place] [address] Protein mass conc (U) 15 mg/dL Abnormal NORMAL : NEGATIVE [facility] Comment on above: Performed By: #### 2 52785 #### [facility],[address] [place] [address] Rbc 0-5 Normal 0-3/hpf [facility] Comment on above: Performed By: #### 2 47077 #### [facility],[address] [place] [address] Sp [place] 1.025 Normal NORMAL: 1.010-1.030 [facility] Comment on above: Performed By: #### 2 01961 #### [facility],[address] [place] [address] Specimen type Nom (Spec) Void Normal [facility] Comment on above: Performed By: #### 2 84327 #### [facility],[address] [place] [address] Urobilinog NORM Normal NORMAL: NORMAL [facility] Comment on above: Performed By: #### 2 48038 #### [facility],[address] [place] [address] 99056 Wbc 11-15 Normal 0-5/hpf [facility] Comment on above: Performed By: #### 2 82269 #### [facility],[address] [place] [address] 46921 WBC #/vol (Bld) 100 Abnormal NORMAL: NEGATIVE [facility] Comment on above: Performed By: #### 2 60079 #### [facility],[address] [place], [place] [id number] Yeast LM Ql (Urine sed) NONE Normal [facility] Comment on above: Performed By: #### 2 05865 #### [facility],[address] [place], [place] [id number] Vital Signs Date Time Vital Sign Value Performing Clinician Facility 11-04-2024 11:35-0400 Body height 157.[address] Jacqueline Sharma MD Work Phone: [facility] 11-04-2024 11:35-0400 Body mass index (BMI) [Ratio] 29.1 kg/m2 Dr. Jacqueline Sharma MD Work Phone: [facility] 11-04-2024 11:35-0400 Body temperature 97 [degF] Dr. Jacqueline Sharma MD Work Phone: [facility] 11-04-2024 11:35-0400 Body weight 72.[address] Jacqueline Sharma MD Work Phone: [facility] 11-04-2024 11:35-0400 Diastolic blood pressure 86 mm[Hg] Dr. Jacqueline Sharma MD Work Phone: [facility] 11-04-2024 11:35-0400 Heart rate 76 /min Dr. Jacqueline Sharma MD Work Phone: [facility] 11-04-2024 11:35-0400 Respiratory rate 16 /min Dr. Jacqueline Sharma MD Work Phone: [facility] 11-04-2024 11:35-0400 SaO2% (BldA) [Mass fraction] 98 % Dr. Jacqueline Sharma MD Work Phone: [facility] 11-04-2024 11:35-0400 Systolic blood pressure 124 mm[Hg] Dr. Jacqueline Sharma MD Work Phone: [facility] 02-01-2024 10:26-0500 Body mass index (BMI) [Ratio] 26.54 kg/m2 Yvonne Bess OBSTETRICAL TECH.PORTAL DEVELOPER Work Phone: [facility] 02-01-2024 10:26-0500 Body temperature 98.49 [degF] Yvonne Bess OBSTETRICAL TECH.PORTAL DEVELOPER Work Phone: [facility] 02-01-2024 10:26-0500 Body weight 67 kg Yvonne Bess OBSTETRICAL TECH.PORTAL DEVELOPER Work Phone: [facility] 02-01-2024 10:26-0500 Diastolic blood pressure 75 mm[Hg] Yvonne Bess OBSTETRICAL TECH.PORTAL DEVELOPER Work Phone: [facility] 02-01-2024 10:26-0500 Heart rate 70 /min Yvonne Bess OBSTETRICAL TECH.PORTAL DEVELOPER Work Phone: [facility] 02-01-2024 10:26-0500 Respiratory rate 18 /min Yvonne Bess OBSTETRICAL TECH.PORTAL DEVELOPER Work Phone: [facility] 02-01-2024 10:26-0500 SaO2% (BldA) [Mass fraction] 99 % Yvonne Bess OBSTETRICAL TECH.PORTAL DEVELOPER Work Phone: [facility] 02-01-2024 10:26-0500 Systolic blood pressure 116 mm[Hg] Yvonne Bess OBSTETRICAL TECH.PORTAL DEVELOPER Work Phone: [facility] 09-08-2023 16:19-0400 Body mass index (BMI) [Ratio] 23.21 kg/m2 Osvaldo Kebede OBSTETRICAL TECH.PORTAL DEVELOPER Work Phone: [facility] 09-08-2023 16:19-0400 Body temperature 98.01 [degF] Osvaldo Pendlebury OBSTETRICAL TECH.PORTAL DEVELOPER Work Phone: [facility] 09-08-2023 16:19-0400 Body weight 58.6 kg Osvaldoyeyo Armendarizlebury OBSTETRICAL TECH.PORTAL DEVELOPER Work Phone: [facility] 09-08-2023 16:19-0400 Diastolic blood pressure 68 mm[Hg] Osvaldo Pendlebury OBSTETRICAL TECH.PORTAL DEVELOPER Work Phone: [facility] 09-08-2023 16:19-0400 Heart rate 78 /min Osvaldo Pendlebury OBSTETRICAL TECH.PORTAL DEVELOPER Work Phone: [facility] 09-08-2023 16:19-0400 Respiratory rate 21 /min Osvaldo Pendlebury OBSTETRICAL TECH.PORTAL DEVELOPER Work Phone: [facility] 09-08-2023 16:19-0400 SaO2% (BldA) [Mass fraction] 98 % Osvaldo Whitneybury OBSTETRICAL TECH.PORTAL DEVELOPER Work Phone: [facility] 09-08-2023 16:19-0400 Systolic blood pressure 100 mm[Hg] Osvaldo Pendlebury OBSTETRICAL TECH.PORTAL DEVELOPER Work Phone: [facility] 02-25-2023 09:33-0500 Body temperature 98.29 [degF] Tianna Praisler-Wood OBSTETRICAL TECH.PORTAL DEVELOPER Work Phone: [facility] 02-25-2023 09:33-0500 Body weight 54.88 kg Tianna Praisler-Wood OBSTETRICAL TECH.PORTAL DEVELOPER Work Phone: [facility] 02-25-2023 09:33-0500 Diastolic blood pressure 60 mm[Hg] Tianna Praisler-Wood OBSTETRICAL TECH.PORTAL DEVELOPER Work Phone: [facility] 02-25-2023 09:33-0500 Heart rate 98 /min Tianna Praisler-Wood OBSTETRICAL TECH.PORTAL DEVELOPER Work Phone: [facility] 02-25-2023 09:33-0500 Respiratory rate 18 /min Tianna Praisler-Wood OBSTETRICAL TECH.PORTAL DEVELOPER Work Phone: [facility] 02-25-2023 09:33-0500 SaO2% (BldA) [Mass fraction] 98 % Tianna Ortiz APRN.PORTAL DEVELOPER Work Phone: [facility] 02-25-2023 09:33-0500 Systolic blood pressure 102 mm[Hg] Tianna Ortiz APRN.PORTAL DEVELOPER Work Phone: [facility] 12-16-2022 15:23-0400 Body weight 57.15 kg Laura Hurley MD Work Phone: [facility] 12-16-2022 15:23-0400 Diastolic blood pressure 58 mm[Hg] Laura Hurley MD Work Phone: [facility] 12-16-2022 15:23-0400 Systolic blood pressure 98 mm[Hg] Laura Hurley MD Work Phone: [facility] 11-11-2022 16:08-0400 Body weight 55.79 kg Laura Hurley MD Work Phone: [facility] 11-11-2022 16:08-0400 Diastolic blood pressure 58 mm[Hg] Laura Hurley MD Work Phone: [facility] 11-11-2022 16:08-0400 Systolic blood pressure 98 mm[Hg] Laura Hurley MD Work Phone: [facility] 08-29-2022 11:11-0400 Body height 157.48 cm No Primary Care Physician [facility] 08-29-2022 11:11-0400 Body mass index (BMI) [Ratio] 21.4 kg/m2 No Primary Care Physician [facility] 08-29-2022 11:11-0400 Body temperature 98.1 [degF] No Primary Care Physician [facility] 08-29-2022 11:11-0400 Body weight 53.07 kg No Primary Care Physician [facility] 08-29-2022 11:11-0400 Diastolic blood pressure 58 mm[Hg] No Primary Care Physician [facility] 08-29-2022 11:11-0400 Heart rate 68 /min No Primary Care Physician [facility] 08-29-2022 11:11-0400 Respiratory rate 14 /min No Primary Care Physician [facility] 08-29-2022 11:11-0400 SaO2% (BldA) [Mass fraction] 95 % No Primary Care Physician [facility] 08-29-2022 11:11-0400 Systolic blood pressure 104 mm[Hg] No Primary Care Physician [facility] 08-25-2022 11:03-0400 Body temperature 97.59 [degF] Filomena Jannette OBSTETRICAL TECH.PORTAL DEVELOPER Work Phone: [facility] 08-25-2022 11:03-0400 Body weight 51.17 kg Filomena Jannette OBSTETRICAL TECH.PORTAL DEVELOPER Work Phone: [facility] 08-25-2022 11:03-0400 Diastolic blood pressure 60 mm[Hg] Filomena Jannette OBSTETRICAL TECH.PORTAL DEVELOPER Work Phone: [facility] 08-25-2022 11:03-0400 Heart rate 82 /min Filomena Jannette OBSTETRICAL TECH.PORTAL DEVELOPER Work Phone: [facility] 08-25-2022 11:03-0400 Respiratory rate 21 /min Filomena Jannette OBSTETRICAL TECH.PORTAL DEVELOPER Work Phone: [facility] 08-25-2022 11:03-0400 SaO2% (BldA) [Mass fraction] 99 % Filomena Jannette OBSTETRICAL TECH.PORTAL DEVELOPER Work Phone: [facility] 08-25-2022 11:03-0400 Systolic blood pressure 98 mm[Hg] Filomena Jannette OBSTETRICAL TECH.PORTAL DEVELOPER Work Phone: [facility] 02-01-2022 08:10-0500 Body height 157.5 cm Ronny Monet MD Work Phone: [facility] 02-01-2022 08:10-0500 Body temperature 97.81 [degF] Ronny Monet MD Work Phone: [facility] 02-01-2022 08:10-0500 Body weight 58.06 kg Ronny Monet MD Work Phone: [facility] 02-01-2022 08:10-0500 Diastolic blood pressure 60 mm[Hg] Ronny Monet MD Work Phone: [facility] 02-01-2022 08:10-0500 Heart rate 96 /min Ronny Monet MD Work Phone: [facility] 02-01-2022 08:10-0500 SaO2% (BldA) [Mass fraction] 99 % Ronny Monet MD Work Phone: [facility] 02-01-2022 08:10-0500 Systolic blood pressure 94 mm[Hg] Ronny Monet MD Work Phone: [facility] 01-23-2022 18:14-0400 Body temperature 98.91 [degF] Yvonne Bess OBSTETRICAL TECH.PORTAL DEVELOPER Work Phone: [facility] 01-23-2022 18:14-0400 Body weight 59.15 kg Yvonne Bess OBSTETRICAL TECH.PORTAL DEVELOPER Work Phone: [facility] 01-23-2022 18:14-0400 Diastolic blood pressure 80 mm[Hg] Yvonne Bess OBSTETRICAL TECH.PORTAL DEVELOPER Work Phone: [facility] 01-23-2022 18:14-0400 Heart rate 81 /min Yvonne Bess OBSTETRICAL TECH.PORTAL DEVELOPER Work Phone: [facility] 01-23-2022 18:14-0400 Respiratory rate 21 /min Yvonne Bess OBSTETRICAL TECH.PORTAL DEVELOPER Work Phone: [facility] 01-23-2022 18:14-0400 SaO2% (BldA) [Mass fraction] 100 % Yvonne Bess OBSTETRICAL TECH.PORTAL DEVELOPER Work Phone: [facility] 01-23-2022 18:14-0400 Systolic blood pressure 128 mm[Hg] Yvonne Bess OBSTETRICAL TECH.PORTAL DEVELOPER Work Phone: [facility] 09-20-2021 12:12-0400 Body temperature 97.6 [degF] [facility] Work Phone: 09-20-2021 12:12-0400 Diastolic blood pressure 71 mm[Hg] [facility] Work Phone: 09-20-2021 12:12-0400 Heart rate 56 /min [facility] Work Phone: 09-20-2021 12:12-0400 Respiratory rate 16 /min [facility] Work Phone: 09-20-2021 12:12-0400 SaO2% (BldA) [Mass fraction] 97 % [facility] Work Phone: 09-20-2021 12:12-0400 Systolic blood pressure 102 mm[Hg] [facility] Work Phone: 09-20-2021 08:31-0400 Body height 157.48 cm [facility] Work Phone: 09-20-2021 08:31-0400 Body mass index (BMI) [Ratio] 22.6 kg/m2 [facility] Work Phone: 09-20-2021 08:31-0400 Body weight 56 kg [facility] Work Phone: 06-21-2021 08:48-0400 Body height 157.48 cm [facility] Work Phone: 06-21-2021 08:48-0400 Body weight 57.6 kg [facility] Work Phone: 05-17-2021 15:20-0500 Body temperature 97.1 [degF] [facility] Work Phone: 05-17-2021 15:20-0500 Diastolic blood pressure 73 mm[Hg] [facility] Work Phone: 05-17-2021 15:20-0500 Heart rate 63 /min [facility] Work Phone: 05-17-2021 15:20-0500 Respiratory rate 20 /min [facility] Work Phone: 05-17-2021 15:20-0500 Systolic blood pressure 108 mm[Hg] [facility] Work Phone: 05-16-2021 12:40-0500 SaO2% (BldA) [Mass fraction] 98 % [facility] Work Phone: 05-15-2021 09:21-0500 Body mass index (BMI) [Ratio] 27.3 kg/m2 [facility] Work Phone: 05-15-2021 09:21-0500 Body weight 67.7 kg [facility] Work Phone: 04-09-2021 11:08-0500 Body mass index (BMI) [Ratio] 26.2 kg/m2 [facility] Work Phone: 04-09-2021 11:08-0500 Body weight 64.86 kg [facility] Work Phone: 04-09-2021 11:05-0500 Heart rate 95 /min [facility] Work Phone: 04-09-2021 11:05-0500 SaO2% (BldA) [Mass fraction] 96 % [facility] Work Phone: 04-09-2021 11:04-0500 Body temperature 97.6 [degF] [facility] Work Phone: 04-09-2021 11:04-0500 Diastolic blood pressure 61 mm[Hg] [facility] Work Phone: 04-09-2021 11:04-0500 Systolic blood pressure 112 mm[Hg] [facility] Work Phone: 04-04-2021 14:27-0500 Body temperature 98.1 [degF] [facility] Work Phone: 04-04-2021 14:27-0500 Diastolic blood pressure 53 mm[Hg] [facility] Work Phone: 04-04-2021 14:27-0500 Heart rate 72 /min [facility] Work Phone: 04-04-2021 14:27-0500 Respiratory rate 16 /min [facility] Work Phone: 04-04-2021 14:27-0500 SaO2% (BldA) [Mass fraction] 100 % [facility] Work Phone: 04-04-2021 14:27-0500 Systolic blood pressure 91 mm[Hg] [facility] Work Phone: 04-04-2021 12:56-0500 Body mass index (BMI) [Ratio] 26.2 kg/m2 [facility] Work Phone: 04-04-2021 12:56-0500 Body weight 64.86 kg [facility] Work Phone: Encounters Encounter Date Encounter Type Care Provider Facility Start: 11-10-2024 ambulatory Jacqueline Quevedolay Facility :[facility] Start: 11-04-2024 End: 11-04-2024 Patient encounter procedure Yvonne TRONCOSO -[facility] Work Phone: Start: 11-04-2024 End: 11-04-[address] Jacuqeline Sharma MD Work Phone: -[facility] Start: 02-01-2024 End: 02-01-2024 Emergency department patient visit Jacqueline Sharma Facility:[facility] Start: 02-01-2024 End: 02-01-2024 ambulatory [facility] Facility:[facility] Start: 02-01-2024 End: 02-01-2024 Patient encounter procedure Yvonne Bess OBSTETRICAL TECH.PORTAL DEVELOPER Work Phone: [facility] Comment on above: Pain of left eye (Pr imary Dx) Start: 09-08-2023 End: 09-08-2023 ambulatory [facility] Facility:[facility] Start: 09-08-2023 End: 09-08-2023 Office outpatient visit 15 minutes Osvaldo Kebede APRN.PORTAL DEVELOPER Work Phone: [facility] Comment on above: Eustachian tube dysf unction, bilateral (Primary Dx) Start: 06-26-2023 End: 06-26-2023 Patient encounter procedure Gustavo Vidal Work Phone: Podiatry Comment on above: Posterior tibial ten don dysfunction (Primary Dx); Tarsal coalition of right foot Start: 06-26-2023 End: 06-26-2023 [facility] Start: 06-26-2023 End: 06-26-2023 Subsequent hospital visit by physician Charli [facility] [place] [facility] [place] Sanchez Work Phone: Radiology Comment on above: Pain [R52] Start: 02-25-2023 End: 02-25-2023 [facility] Start: 02-25-2023 End: 02-25-2023 Patient encounter procedure Tianna Ortiz APRN.CNP Work Phone: [place] [facility] Comment on above: Sore throat (Primary Dx); Strep throat Start: 12-16-2022 End: 12-16-2022 Patient encounter procedure Laura Hurley MD Work Phone: OB/Gynecology Comment on above: Encounter for IUD in sertion (Primary Dx); Encounter for IUD removal and reinsertion Start: 11-18-2022 ambulatory Laura interiano MD Work Phone: OB/Gynecology Comment on above: Schedule appt Start: 11-11-2022 End: 11-11-2022 Patient encounter procedure Laura Hurley MD Work Phone: OB/Gynecology Comment on above: Encounter for IUD re moval (Primary Dx); Encounter for IUD insertion; Abnormal uterine bleeding (AUB) Start: 10-18-2022 End: 10-18-2022 ambulatory No Primary Care Physician [facility] Work Phone: Start: 10-18-2022 End: 10-18-2022 Patient encounter procedure No Primary Care Physician [facility]-Laboratory, [facility] Start: 09-26-2022 End: 09-26-2022 Patient encounter procedure No Primary Care Physician [facility] [place] Work Phone: Start: 08-29-2022 End: 08-29-2022 Patient encounter procedure No Primary Care Physician [facility] Work Phone: Start: 08-25-2022 End: 08-25-2022 Patient encounter procedure Filomena Bhatia OBSTETRICAL TECH.PORTAL DEVELOPER Work Phone: [facility] Comment on above: Acute otitis media, right (Primary Dx); Irritation of right eye Start: 02-01-2022 End: 02-01-2022 Patient encounter procedure Ronny Monet MD Work Phone: General Surgery Comment on above: LUQ pain (Primary Dx ); Rib pain Start: 01-29-2022 End: 01-29-2022 Subsequent hospital visit by physician Ct [facility] ([facility]) Work Phone: Cat Scan Comment on above: Rib pain [R07.81] Start: 01-23-2022 End: 01-23-2022 Subsequent hospital visit by physician X[facility] Work Phone: Radiology Comment on above: Rib pain [R07.81] Start: 01-23-2022 End: 01-23-2022 Patient encounter procedure Yvonne Bess OBSTETRICAL TECH.PORTAL DEVELOPER Work Phone: [facility] Comment on above: Rib pain (Primary Dx ); Medical condition not demonstrated Start: 09-25-2021 Orders Only Laura interiano MD Work Phone: OB/Gynecology Start: 09-20-2021 ambulatory Laura interiano MD Work Phone: OB/Gynecology Comment on above: Encounter for steril ization (Primary Dx) Start: 09-20-2021 Patient encounter procedure Laura Hurley MD Work Phone: [facility] Start: 09-20-2021 End: 09-20-2021 Admission to same day surgery center [facility] Start: 07-17-2021 Telephone encounter Laura Hurley MD Work Phone: OB/Gynecology Comment on above: Schedule Surgery Start: 06-15-2021 End: 06-15-2021 Patient encounter procedure [facility]-Pre-Admissio n Testing Start: 05-15-2021 End: 05-17-2021 Evaluation and management of inpatient [facility] Start: 04-16-2021 [facility] Comment on above: Anemia Treatment Start: 04-16-2021 E-mail encounter fro m caregiver [facility] Provider [facility] Start: 04-09-2021 End: 04-09-2021 Patient encounter procedure [facility], Outpatients Start: 04-04-2021 End: 04-04-2021 Patient encounter procedure [facility]-Medical Surgical 3 Outp Start: 11-21-2020 ambulatory Laura interiano MD Work Phone: OB/Gynecology Comment on above: RE: Test Result Ques tion Start: 10-23-2020 ambulatory [facility] Provider OB/Gynecol ogy Comment on above: Test Result Start: 10-23-2020 E-mail encounter fro m caregiver [facility] Provider [facility] Start: 10-12-2020 End: 08-29-2022 Patient requested procedure Laura Hurley MD Work Phone: [facility] Work Phone: Start: 07-20-2019 E-mail encounter fro m caregiver Laura Hurley MD Work Phone: [facility] Start: 07-20-2019 Patient encounter procedure Laura Hurley MD Work Phone: OB/Gynecology Comment on above: RE: Appointment Requ est () Start: 01-26-2019 E-mail encounter fro m caregiver M Zeb Quintanilla PA-C Work Phone: [facility] Start: 01-26-2019 Patient encounter procedure M Zeb Quintanilla PA-C Work Phone: [facility] [place] Comment on above: RE: Appointment Requ est Start: 11-10-2018 E-mail encounter fro m caregiver Kelsey Wallace MD Work Phone: [facility] Start: 11-10-2018 Patient encounter procedure Kelsey Wallace MD Work Phone: OB/Gynecology Comment on above: RE: Appointment Requ est () Start: 05-04-2018 E-mail encounter fro m caregiver Laura Hurley MD Work Phone: [facility] Start: 05-04-2018 Patient encounter procedure Laura Hurley MD Work Phone: OB/Gynecology Comment on above: Appointment Request (HM) appointment Start: 04-14-2018 End: 04-14-2018 Emergency department patient visit SHAAN Pittman ELÍAS [facility] Start: 11-13-2017 End: 11-13-2017 Emergency department patient visit CRAIG Hurtado HERNANDEZ [facility] Start: 02-23-2016 E-mail encounter fro cayla caregiver Darcy Herrmann Work Phone: [facility] Start: 02-23-2016 Patient encounter procedure Darcy Herrmann Work Phone: OB/Gynecology Comment on above: RE: Request an Appoi ntment Start: 11-21-2015 E-mail encounter fro cayla caregiver Darcy Herrmann Work Phone: [facility] Start: 11-21-2015 Patient encounter procedure Darcy Herrmann Work Phone: OB/Gynecology Comment on above: RE: Request an Appoi ntment Start: 09-12-2015 ambulatory Vannesa Shay Work Phone: OB/Gynecology Comment on above: RE: Medication Quest ion (Not Renewal) Start: 09-06-2015 ambulatory [facility] Provider Medical [facility] Comment on above: [facility] ocedure Start: 09-06-2015 E-mail encounter fro cayla caregiver [facility] Provider [facility] Start: 11-11-2014 ambulatory Nigel Kern Work Phone: [facility] Start: 11-11-2014 Follow-up encounter Nigel black MD Work Phone: OB/Gynecology Comment on above: RE: Visit Follow Up Question Procedures Date Procedure Procedure Detail Performing Clinician Start: 02-25-2023 STREP A MOLECULAR (POC) Karon Talavera PA-C Work Phone: Start: 09-26-2022 Ultrasonography of abdomen No Primary Care Physician Start: 09-26-2022 US scan of thyroid No P [place]n Care Physician Start: 01-29-2022 Ct abdomen & pelvis w/contrast material Ronny Monet MD Work Phone: Start: 01-23-2022 Radex ribs uni w/posteroant ch minimum 3 views Yvonne Bess APRN.PORTAL DEVELOPER Work Phone: Start: 09-20-2021 Laparoscopic salpingectomy Start: 06-21-2021 End: 06-21-2021 Viral antigen assay Start: 05-15-2021 SARS-CoV-2 Antigen (Rapid) Start: 04-09-2021 Group B Streptococcu s Culture Start: 10-12-2020 End: 05-29-2021 H/O: section Hx successful (vaginal after ), currently Osvaldo Kebede APRN.PORTAL DEVELOPER Work Phone: Start: 11-13-2017 Urinalysis CRAIG HERNANDEZ Comment on above: Result Comment: URIN ALYSIS Performed By: #### [id number] #### [facility],[address] [place] [address] Start: 09-06-2015 End: 04-30-2016 H/O: section H/O section Osvaldo murillo APRN.PORTAL DEVELOPER Work Phone: Viral antigen assay Plan of Treatment Date Care Activity Detail Author Start: 12-21-2025 Urine microalbumin profile [facility] Start: 10-18-2025 HPV TESTING HPV TESTING [facility] Start: 10-18-2025 PAP TESTING PAP TESTING [facility] Start: 10-18-2025 Screening for malign ant neoplasm of cervix [facility] Start: 11-23-2023 Covid-19 Vaccine ( season) Covid-19 Vaccine ( season) [facility] Start: 11-23-2023 Influenza vaccination C [facility] Start: 03-24-2023 Behavioral Health Screening Behavioral Health Screening [facility] Start: 11-22-2022 Covid-19 Vaccine ( season) Covid-19 Vaccine ( season) [facility] Start: 11-22-2022 Influenza vaccination C [facility] Start: 03-24-2022 [facility] Start: 11-22-2021 Influenza vaccination INFLUENZA (#1) [facility] Start: 09-20-2021 Ambulation without limitation [facility] Work Phone: Start: 09-20-2021 Medical regimen orde rs management [facility] Work Phone: Start: 09-20-2021 Medication education [facility] Work Phone: Start: 09-20-2021 Patient discharge [facility] Work Phone: Start: 09-20-2021 Taking patient vital signs [facility] Work Phone: Start: 09-20-2021 Vital signs measurements [facility] Work Phone: Start: 09-20-2021 [facility] Work Phone: Start: 04-09-2021 Iv infusion hydratio n initial 31 min-1 hour HYDRATION IV INFUSION INIT [facility] Work Phone: Start: 03-24-2021 DEPRESSION ASSESSMENT [facility] Start: 09-19-2007 Hepatitis B Vaccine (1 of 3 - 19+ 3-dose series) Hepatitis B Vaccine (1 of 3 - 19+ 3-dose series) [facility] Start: 2006 Anxiety Screening Anxiety Screening [facility] Start: 2006 [facility]: 2000 Adult depression screening assessment DEPRESSION SCREENING [facility] Start: 1993 COVID-19 VACCINE (#1) COVID-19 VACCI NE (#1) [facility] Start: 03-20-1989 COVID-19 VACCINE (#1) COVID-19 VACCI NE (#1) [facility] Start: 1988 HEPATITIS B (1 of 3 - 3-dose series) HEPATITIS B (1 of 3 - 3-dose series) [facility] Start: 1988 Hepatitis B Vaccine (1 of 3 - 3-dose series) Hepatitis B Vaccine (1 of 3 - 3-dose series) [facility] Insertion intrauteri ne device iud INSERT INTRAUTERINE DEVICE Procedures Routine Encounter for IUD insertion Ordered: 11/11/2022 [facility] Work Phone: Comment on above: Ordered: 11/11/2022 Patient Education [facility] Work Phone: Patient referral [facility] Work Phone: Removal intrauterine device iud REMOVE INTRAUTERINE DEVICE Procedures Routine Encounter for IUD removal Ordered: 11/11/2022 [facility] Work Phone: Comment on above: Ordered: 11/11/2022 Tobacco use cessatio n education [facility] XR Foot - right AP a nd Lateral and oblique XR FOOT GENERAL 3V AP/LAT/OBL RIGHT Radiology Routine Pain 06/26/2023 1:07 PM EDT [facility] Work Phone: [facility] Immunizations Immunization Date Immunization Notes Care Provider [facility] 02-07-2021 Influenza virus vaccine W [facility] 01-10-2021 influenza, injectabl e, quadrivalent, contains preservative Laura Hurley MD Work Phone: [facility] 01-10-2021 influenza, injectabl e, quadrivalent, preservative free Dr. Jacqueline Sharma MD Work Phone: [facility] 01-10-2021 influenza, seasonal, injectable No Primary Care Physician [facility] 01-10-2021 influenza virus vaccine, unspecified formulation Laura Hurley MD Work Phone: [facility] 12-22-2015 tetanus toxoid, redu maddy diphtheria toxoid, and acellular pertussis vaccine, adsorbed Laura Hurley MD Work Phone: [facility] 07-17-2015 tetanus toxoid, redu maddy diphtheria toxoid, and acellular pertussis vaccine, adsorbed [facility] Work Phone: 09-15-2014 tetanus toxoid, redu maddy diphtheria toxoid, and acellular pertussis vaccine, adsorbed Laura Hurley MD Work Phone: [facility] Work Phone: Payers Date Payer Category Payer Self-pay [id number] 2022 Unknown [id number] 2015 Medicaid [facility] MEDICAID [facility] MEDICAID [id number] 2015-Present [phone] [address] [place] [address] Medicaid [id number] 2015 Medicaid [id number] 1988 Unknown [id number] 1988 Unknown [id number] Private Health Insurance [id number] Unknown [id number] Unknown [id number] Unknown [id number] Social History Date Type Detail Facility [facility] Work Phone: Start: 06-15-2021 End: 08-29-2022 Tobacco smoking status MDIS Unknown if ever smoked [facility] Start: 06-14-2020 Rare [facility] Start: 06-14-2020 None [facility] Start: 06-14-2020 Spouse/ Signif icant Other [facility] Start: 06-14-2020 Cigarettes [facility] Start: 1990 Sex Assigned At Female W [facility] Start: 10-12-2020 End: 02-01-2024 Tobacco smoking status NHIS Ex-smoker [facility] Work Phone: Start: 07-13-2005 End: 07-13-2020 History of tobacco use Current smoker [facility] Work Phone: Start: 07-13-2005 End: 07-13-2020 History of tobacco use Cigarette Smoker [facility] Work Phone: Start: 10-12-2020 End: 08-29-2022 Cigarettes smoked current (pack per day) - Reported 0.5 [facility] Start: 10-12-2020 End: 02-01-2024 Tobacco use and exposure Smokeless tobacco non-user [facility] Work Phone: Start: 05-29-2021 End: 02-01-2024 Alcohol intake Ex-drinker (finding) [facility] Start: 10-12-2020 Education 21 [facility] Start: 1990 Sex Assigned At Not on file [facility] Start: 04-25-2014 Tobacco smoking stat us MDIS Smokes tobacco daily [facility] Start: 02-07-2016 End: 11-12-2017 Alcohol intake Current non-drinker of alcohol (finding) [facility] Start: 08-26-2021 End: 02-01-2022 Exposure to SARS-CoV-2 (event) Not sure [facility] Start: 10-20-2014 Alcohol intake Current drinke r of alcohol (finding) [facility] Start: 04-25-2014 History SDOH Alcohol Comment None while [facility] Start: 08-29-2022 End: 11-11-2022 Tobacco use panel [facility] National Score (1-10 0), lower number is lower risk 69 [facility] Start: 08-29-2022 Tobacco Comment [facility] Goals Date Patient Goal Desired Activity /State Mental Status Date Assessment Result Facility 09-20-2021 Cognitive function Voice/Name [facility] Work Phone: 04-04-2021 Cognitive function Level Of Cons ciousness Awake;Alert;Appropriate [facility] Work Phone: Clinical Notes 09-12-2015 to 02-01-2024 Sasha Grewal APRN.SARA - 02/01/2024 10:33 AM Osvaldo Posey APRN.CNP - 09/08/2023 4:27 PM EDTPatient InstructionsTestGustavo vann - 06/26/2023 2:01 PM EDTPatient Instructions Note Date & Type Note Facility 02-01-2024 Note HNO ID: [id number] Author: SASHA GREWAL APRN.SARA Service: ? Author Type: Nurse Practitioner Type: Progress Notes Filed: 02/01/2024 10:34 Note Text: Complaints of left eye pain and blurred vision. Patient says she slept with her contacts in and then noticed it was very uncomfortable. Patient has taken the contact out and flushed the eye with no relief. Patient is unable to make out objects says this is worse than her normal vision. Patient is being referred to the emergency room for full evaluation. Patient was okay with this care plan. Patient significant other will drive her. [facility] 02-01-2024 History of Presen t illness Narrative Complaints of left eye pain and blurred vision. Patient says she slept with her contacts in and then noticed it was very uncomfortable. Patient has taken the contact out and flushed the eye with no relief. Patient is unable to make out objects says this is worse than her normal vision. Patient is being referred to the emergency room for full evaluation. Patient was okay with this care plan. Patient significant other will drive her. documented in this encounter [facility] 09-08-2023 Note HNO ID: [id number] Author: OSVALDO KEBEDE APRN.SARA Service: ? Author Type: Nurse Practitioner Type: Progress Notes Filed: 09/08/2023 16:37 Note Text: Subjective HPI Nontoxic-appearing female presents to urgent care with chief complaint of upper respiratory tract like infection. Duration of symptoms 7 days. Associated symptoms sore throat, nasal congestion, nasal discharge and nonproductive cough. URI symptoms are improving. Ear pain is new. Presents today for evaluation of ear pain. Patient denies the use of any gkne-fnd-fxlppnc medications or home remedies for symptom management. Patient denies any productive cough, fever, chest pain, shortness of breath, pleuritic pain, rash, abdominal pain, nausea, vomiting or change in bowel or bladder habit. Denies chance of . Is not breast-feeding. Past medical history prescription medications allergies reviewed. .Patient presents with: Sinus Problem: Congestion, drainage, bilateral ear pain x 1 week PAST MEDICAL HISTORY Diagnosis Date Abnormal Pap smear of cervix Anemia Anemia complicating , second trimester 03/08/2021 03/08/21- HGB 9.4. Oral iron started. Repeat CBC at 32 weeks gestation. Order placed. Margot Shell APRN.CNM History of kidney stones HPV test positive PAST SURGICAL HISTORY Procedure Laterality Date DELIVERY ONLY 11/25/2014 , low transverse CONIZATION CERVIX W/WO DANDC RPR KNIFE/LASER 2006 DANLEAH, DIAG AND/OR THERAPEUTIC INSERTION OF IUD N/A 05/22/2016 paragard- removed 2020 LAPAROSCOPY W/RMVL ADNEXAL STRUCTURES Bilateral 09/20/2021 bilateral salpingectomy for sterilization- Liletta insertion VAGINOSCOPY 2006 ALLERGIES Patient has no known allergies. MEDICATIONS levonorgestrel (MIRENA) 21 mcg/24 hours (8 yrs) 52 mg IUD1 Each by INTRAUTERINE route as directed.Disp: 1 EachRfl: 0 ibuprofen (MOTRIN) 200 mg tabletTake 400 mg by mouth every 6 hours as needed for pain.Disp: Rfl: acetaminophen (TYLENOL) 325 mg tabletTake 650 mg by mouth every 6 hours as needed.Disp: Rfl: FAMILY HISTORY Problem Relation Age of Onset Hypertension Mother Migraines Mother No Known Problems Father Bipolar disorder Brother Breast Cancer Maternal Grandmother No Known Problems Maternal Grandfather No Known Problems Paternal Grandmother Cancer Paternal Grandfather Stroke Paternal Grandfather No Known Problems Daughter No Known Problems Daughter No Known Problems Son No Known Problems Son Social History Tobacco Use Smoking status: Former Packs/day: 0.50 Years: 15.00 Additional pack years: 0.00 Total pack years: 7.50 Types: Cigarettes Quit date: 07/13/2020 Years since quittin.1 Smokeless tobacco: Never Tobacco comments: Vape Vaping Use Vaping Use: current everyday user Substances: Nicotine Devices: Disposable Substance Use Topics Alcohol use: Not Currently Alcohol/week: 3.0 standard drinks of alcohol Types: 3 Cans of Beer (12oz) per week Drug use: No BP 100/68 Pulse 78 Temp 36.7 ?C (98 ?F) Resp 21 Wt 58.6 kg (129 lb 3 oz) LMP 08/22/2021 (Exact Date) SpO2 98% BMI 23.21 kg/m? Review of Systems Constitutional: Negative for chills, fever and malaise/fatigue. HENT: Positive for congestion and ear pain. Negative for ear discharge, sinus pain and sore throat. Eyes: Negative for blurred vision, pain, discharge and redness. Respiratory: Positive for cough. Negative for hemoptysis, sputum production, shortness of breath, wheezing and stridor. Cardiovascular: Negative for chest pain. Gastrointestinal: Negative for abdominal pain, diarrhea, nausea and vomiting. Musculoskeletal: Negative for myalgias. Skin: Negative for itching and rash. Neurological: Negative for dizziness and headaches. Objective Physical Exam Constitutional: General: She is not in acute distress. Appearance: She is not diaphoretic. HENT: Head: Normocephalic. Jaw: No trismus, tenderness, swelling or pain on movement. Right Ear: Tympanic membrane, ear canal and external ear normal. Left Ear: Tympanic membrane, ear canal and external ear normal. Ears: Comments: Clear fluid noted behind bilateral TMs. Nose: Congestion present. Mouth/Throat: Mouth: Mucous membranes are moist. Pharynx: Oropharynx is clear. Uvula midline. No pharyngeal swelling, oropharyngeal exudate, posterior oropharyngeal erythema or uvula swelling. Eyes: Conjunctiva/sclera: Conjunctivae normal. Pupils: Pupils are equal, round, and reactive to light. Cardiovascular: Rate and Rhythm: Normal rate and regular rhythm. Heart sounds: Normal heart sounds. Pulmonary: Effort: Pulmonary effort is normal. No tachypnea, accessory muscle usage or respiratory distress. Breath sounds: Normal breath sounds. No stridor. No wheezing, rhonchi or rales. Abdominal: General: There is no distension. Palpations: Abdomen is soft. Tenderness: There is no abdominal tenderness (more content not included)... [facility] 09-08-2023 History of Presen t illness Narrative Subjective HPI Nontoxic-appearing female presents to urgent care with chief complaint of upper respiratory tract like infection. Duration of symptoms 7 days. Associated symptoms sore throat, nasal congestion, nasal discharge and nonproductive cough. URI symptoms are improving. Ear pain is new. Presents today for evaluation of ear pain. Patient denies the use of any kisn-rxd-pzldpxi medications or home remedies for symptom management. Patient denies any productive cough, fever, chest pain, shortness of breath, pleuritic pain, rash, abdominal pain, nausea, vomiting or change in bowel or bladder habit. Denies chance of . Is not breast-feeding. Past medical history prescription medications allergies reviewed. .Patient presents with: Sinus Problem: Congestion, drainage, bilateral ear pain x 1 week PAST MEDICAL HISTORY Diagnosis Date Abnormal Pap smear of cervix Anemia Anemia complicating , second trimester 03/08/2021 03/08/21- HGB 9.4. Oral iron started. Repeat CBC at 32 weeks gestation. Order placed. Margot Shell APRN.CNM History of kidney stones HPV test positive PAST SURGICAL HISTORY Procedure Laterality Date DELIVERY ONLY 11/25/2014 , low transverse CONIZATION CERVIX W/WO D&C RPR KNIFE/LASER 2006 D&C, DIAG AND/OR THERAPEUTIC INSERTION OF IUD N/A 05/22/2016 paragard- removed 2020 LAPAROSCOPY W/RMVL ADNEXAL STRUCTURES Bilateral 09/20/2021 bilateral salpingectomy for sterilization- Liletta insertion VAGINOSCOPY 2006 ALLERGIES Patient has no known allergies. MEDICATIONS levonorgestrel (MIRENA) 21 mcg/24 hours (8 yrs) 52 mg IUD^1 Each by INTRAUTERINE route as directed.^Disp: 1 Each^Rfl: 0 ibuprofen (MOTRIN) 200 mg tablet^Take 400 mg by mouth every 6 hours as needed for pain.^Disp: ^Rfl: acetaminophen (TYLENOL) 325 mg tablet^Take 650 mg by mouth every 6 hours as needed.^Disp: ^Rfl: FAMILY HISTORY Problem Relation Age of Onset Hypertension Mother Migraines Mother No Known Problems Father Bipolar disorder Brother Breast Cancer Maternal Grandmother No Known Problems Maternal Grandfather No Known Problems Paternal Grandmother Cancer Paternal Grandfather Stroke Paternal Grandfather No Known Problems Daughter No Known Problems Daughter No Known Problems Son No Known Problems Son Social History Tobacco Use Smoking status: Former Packs/day: 0.50 Years: 15.00 Additional pack years: 0.00 Total pack years: 7.50 Types: Cigarettes Quit date: 07/13/2020 Years since quittin.1 Smokeless tobacco: Never Tobacco comments: Vape Vaping Use Vaping Use: current everyday user Substances: Nicotine Devices: Disposable Substance Use Topics Alcohol use: Not Currently Alcohol/week: 3.0 standard drinks of alcohol Types: 3 Cans of Beer (12oz) per week Drug use: No BP 100/68 Pulse 78 Temp 36.7 C (98 F) Resp 21 Wt 58.6 kg (129 lb 3 oz) LMP 08/22/2021 (Exact Date) SpO2 98% BMI 23.21 kg/m Review of Systems Constitutional: Negative for chills, fever and malaise/fatigue. HENT: Positive for congestion and ear pain. Negative for ear discharge, sinus pain and sore throat. Eyes: Negative for blurred vision, pain, discharge and redness. Respiratory: Positive for cough. Negative for hemoptysis, sputum production, shortness of breath, wheezing and stridor. Cardiovascular: Negative for chest pain. Gastrointestinal: Negative for abdominal pain, diarrhea, nausea and vomiting. Musculoskeletal: Negative for myalgias. Skin: Negative for itching and rash. Neurological: Negative for dizziness and headaches. Objective Physical Exam Constitutional: General: She is not in acute distress. Appearance: She is not diaphoretic. HENT: Head: Normocephalic. Jaw: No trismus, tenderness, swelling or pain on movement. Right Ear: Tympanic membrane, ear canal and external ear normal. Left Ear: Tympanic membrane, ear canal and external ear normal. Ears: Comments: Clear fluid noted behind bilateral TMs. Nose: Congestion present. Mouth/Throat: Mouth: Mucous membranes are moist. Pharynx: Oropharynx is clear. Uvula midline. No pharyngeal swelling, oropharyngeal exudate, posterior oropharyngeal erythema or uvula swelling. Eyes: Conjunctiva/sclera: Conjunctivae normal. Pupils: Pupils are equal, round, and reactive to light. Cardiovascular: Rate and Rhythm: Normal rate and regular rhythm. Heart sounds: Normal heart sounds. Pulmonary: Effort: Pulmonary effort is normal. No tachypnea, accessory muscle usage or respiratory distress. Breath sounds: Normal breath sounds. No stridor. No wheezing, rhonchi or rales. Abdominal: General: There is no distension. Palpations: Abdomen is soft. Tenderness: There is no abdominal tenderness. There is no guarding or rebound. Musculoskeletal: Cervical back: Normal range of motion and neck supple. No edema, erythema, rigidity or tenderness. No pain with movement. Normal range of motion. Lymphadenopathy: Cervical: No cervical adenopathy. Skin: General: Skin is warm and dry. Neurological: Mental Status: She is alert and oriented to person, place, and time. ASSESSMENT/PLAN: 1. Eustachian tube dysfunction, bilateral - ICD9: 381.81, ICD10: H69.93 No evidence of bacterial infection noted on today's exam. Treat as eustachian tube dysfunction. Antihistamines and Flonase sent to pharmacy. Patient was educated on supportive therapies. Patient will follow up with primary care provider as needed. Patient was instructed to immediately proceed to emergency room for any new, worsening, or symptoms lasting longer than anticipated. The patient's clinical presentation is otherwise unremarkable at this time. Based on exam and clinical finding, the patient is stable for discharge. Plan of care was discussed with patient. Patient verbalizes understanding and agrees to plan of care. This note was generated using Holvi software. It may contain errors in wording, punctuation, or spelling. Osvaldo Kebede APRN.PORTAL DEVELOPER documented in this encounter [facility] 06-26-2023 Gustavo Coombs - 06/26/2023 2:10 PM EDT Powerstep Original Full length. Can purchase at [employer] and boots,shoes and more here in [place], [employer] in [place] or [place]. Also can find in [place] in [facility]. Powersteps can also be purchased online, starting around $45.00 If you have a metatarsal or dancer pad for your feet apply the pad directly to the insole so you can interchange between your shoes. Find a shoe with a removable insole and take this out and replace with your powerstep insole. Always bring powersteps with you when shopping for shoes so that you can make sure that everything fits well together documented in this encounter [facility] 06-26-2023 Note HNO ID: [id number] Author: GUSTAVO VIDAL, ? Service: ? Author Type: Physician Type: Progress Notes Filed: 06/27/2023 09:51 Note Text: Initial Podiatric Office Visit: Chief Complaint: This 32 year old female who presents with chief complaint:right foot pain HPI Patient presents to clinic for evaluation of right foot Patient has been experiencing pain along the medial aspect of right ankle extending down her arch Has been present for about one month States the pain 2 weeks ago was constant. Did purchse shoes with memory foam inserts and that has helped. She will still get a burning pain down her ankle extending to her toes. Patient currently vapes. PAIN EVALUATION 06/26/2023 1351 Pain Level: 4 Pain Location: Foot-Right Description: Stabbing;Dull;Throbbing Duration Amount of Time: 1.5 Duration Units: Months Frequency: Intermittent Intervention/Comfort measure: Reposition;Relaxation;Massage No results found for: HBA1C PCP: No primary care provider on file. PAST MEDICAL HISTORY Diagnosis Date Abnormal Pap smear of cervix Anemia Anemia complicating , second trimester 03/08/2021 03/08/21- HGB 9.4. Oral iron started. Repeat CBC at 32 weeks gestation. Order placed. Margot Shell APRN.CNM History of kidney stones HPV test positive Current Outpatient Medications Medication Sig levonorgestrel (MIRENA) 21 mcg/24 hours (8 yrs) 52 mg IUD 1 Each by INTRAUTERINE route as directed. ibuprofen (MOTRIN) 200 mg tablet Take 400 mg by mouth every 6 hours as needed for pain. acetaminophen (TYLENOL) 325 mg tablet Take 650 mg by mouth every 6 hours as needed. Current Facility-Administered Medications Medication Dose Route Frequency NaCl 0.9% iv infusion 500 mL/hr INTRAVENOUS PRN diphenhydrAMINE 50 mg injection (BENADRYL) 50 mg INTRAVENOUS PRN hydrocortisone sodium succinate (PF) 100 mg injection (Solu-CORTEF) 100 mg INTRAVENOUS PRN EPINEPHrine 1 mg/mL (1 mL) 0.3 mg injection 0.3 mg INTRAMUSCULAR PRN ALLERGIES No Known Allergies PAST SURGICAL HISTORY Procedure Laterality Date DELIVERY ONLY 11/25/2014 , low transverse CONIZATION CERVIX W/WO DANDC RPR KNIFE/LASER 2006 DANDC, DIAG AND/OR THERAPEUTIC INSERTION OF IUD N/A 05/22/2016 paragard- removed 2020 LAPAROSCOPY W/RMVL ADNEXAL STRUCTURES Bilateral 09/20/2021 bilateral salpingectomy for sterilization- Liletta insertion VAGINOSCOPY 2006 FAMILY HISTORY Problem Relation Age of Onset Hypertension Mother Migraines Mother No Known Problems Father Bipolar disorder Brother Breast Cancer Maternal Grandmother No Known Problems Maternal Grandfather No Known Problems Paternal Grandmother Cancer Paternal Grandfather Stroke Paternal Grandfather No Known Problems Daughter No Known Problems Daughter No Known Problems Son No Known Problems Son Social History Tobacco Use Smoking status: Former Packs/day: 0.50 Years: 15.00 Additional pack years: 0.00 Total pack years: 7.50 Types: Cigarettes Quit date: 07/13/2020 Years since quittin.9 Smokeless tobacco: Never Tobacco comments: Vape Vaping Use Vaping Use: current everyday user Substances: Nicotine Devices: Disposable Substance Use Topics Alcohol use: Not Currently Alcohol/week: 3.0 standard drinks of alcohol Types: 3 Cans of Beer (12oz) per week Drug use: No REVIEW OF SYSTEMS GENERAL: Negative for Malaise, significant weight loss, fever RESPIRATORY: Negative for cough, wheezing and shortness of breath CARDIOVASCULAR: Negative for chest pain, leg swelling and palpitations GI: Negative for abdominal discomfort, blood in stools or black stools and change in bowel habits : Negative for dysuria, frequency and incontinence MUSCULOSKELETAL: Negative for joint pain or swelling, back pain, and muscle pain. SKIN: Negative for lesions, rash, and itching. HEMATOLOGY/LYMPHOLOGY Negative for prolonged bleeding, bruising easily, and swollen nodes. ENDOCRINE: Negative for cold or heat intolerance, polyuria, polydipsia and goiter. NEURO: negative Physical Exam: Constitutional: Pt is a well developed 32 year old female who is alert, oriented and cooperative Eyes: Following during examination. No redness or drainage. Respiratory: RR normal and nonlabored. Even breathing. No evidence of distress or shortness of breath. Psychology: Patient is engaged during conversation. Normal affect and mood. Does not appear depressed or anxious during encounter. Vascular: Dorsalis pedis and posterior tibial pulses palpable as b/l Capillary Fill time < 5 seconds to digits 1-5 b/l Skin temperature warm to warm proximal to distal b/l Hair growth present to digits Neurological: intact light touch/epicritic sensation - tinel b/l intact protective sensation no significant neurological deficits Dermatological: Nails 1-5 b/l appear normal. Webspaces clean and dry 1-4 b/l. Skin appears w (more content not included)... [facility] 06-26-2023 History of Presen t illness Narrative Initial Podiatric Office Visit: Chief Complaint: This 32 year old female who presents with chief complaint:right foot pain HPI Patient presents to clinic for evaluation of right foot Patient has been experiencing pain along the medial aspect of right ankle extending down her arch Has been present for about one month States the pain 2 weeks ago was constant. Did purchse shoes with memory foam inserts and that has helped. She will still get a burning pain down her ankle extending to her toes. Patient currently vapes. PAIN EVALUATION 06/26/2023 1351 Pain Level: 4 Pain Location: Foot-Right Description: Stabbing;Dull;Throbbing Duration Amount of Time: 1.5 Duration Units: Months Frequency: Intermittent Intervention/Comfort measure: Reposition;Relaxation;Massage No results found for: HBA1C PCP: No primary care provider on file. PAST MEDICAL HISTORY Diagnosis Date Abnormal Pap smear of cervix Anemia Anemia complicating , second trimester 03/08/2021 03/08/21- HGB 9.4. Oral iron started. Repeat CBC at 32 weeks gestation. Order placed. Margot Shell APRN.CNM History of kidney stones HPV test positive Current Outpatient Medications Medication Sig levonorgestrel (MIRENA) 21 mcg/24 hours (8 yrs) 52 mg IUD 1 Each by INTRAUTERINE route as directed. ibuprofen (MOTRIN) 200 mg tablet Take 400 mg by mouth every 6 hours as needed for pain. acetaminophen (TYLENOL) 325 mg tablet Take 650 mg by mouth every 6 hours as needed. Current Facility-Administered Medications Medication Dose Route Frequency NaCl 0.9% iv infusion 500 mL/hr INTRAVENOUS PRN diphenhydrAMINE 50 mg injection (BENADRYL) 50 mg INTRAVENOUS PRN hydrocortisone sodium succinate (PF) 100 mg injection (Solu-CORTEF) 100 mg INTRAVENOUS PRN EPINEPHrine 1 mg/mL (1 mL) 0.3 mg injection 0.3 mg INTRAMUSCULAR PRN ALLERGIES No Known Allergies PAST SURGICAL HISTORY Procedure Laterality Date DELIVERY ONLY 11/25/2014 , low transverse CONIZATION CERVIX W/WO D&C RPR KNIFE/LASER 2006 D&C, DIAG AND/OR THERAPEUTIC INSERTION OF IUD N/A 05/22/2016 paragard- removed 2020 LAPAROSCOPY W/RMVL ADNEXAL STRUCTURES Bilateral 09/20/2021 bilateral salpingectomy for sterilization- Liletta insertion VAGINOSCOPY 2006 FAMILY HISTORY Problem Relation Age of Onset Hypertension Mother Migraines Mother No Known Problems Father Bipolar disorder Brother Breast Cancer Maternal Grandmother No Known Problems Maternal Grandfather No Known Problems Paternal Grandmother Cancer Paternal Grandfather Stroke Paternal Grandfather No Known Problems Daughter No Known Problems Daughter No Known Problems Son No Known Problems Son Social History Tobacco Use Smoking status: Former Packs/day: 0.50 Years: 15.00 Additional pack years: 0.00 Total pack years: 7.50 Types: Cigarettes Quit date: 07/13/2020 Years since quittin.9 Smokeless tobacco: Never Tobacco comments: Vape Vaping Use Vaping Use: current everyday user Substances: Nicotine Devices: Disposable Substance Use Topics Alcohol use: Not Currently Alcohol/week: 3.0 standard drinks of alcohol Types: 3 Cans of Beer (12oz) per week Drug use: No REVIEW OF SYSTEMS GENERAL: Negative for Malaise, significant weight loss, fever RESPIRATORY: Negative for cough, wheezing and shortness of breath CARDIOVASCULAR: Negative for chest pain, leg swelling and palpitations GI: Negative for abdominal discomfort, blood in stools or black stools and change in bowel habits : Negative for dysuria, frequency and incontinence MUSCULOSKELETAL: Negative for joint pain or swelling, back pain, and muscle pain. SKIN: Negative for lesions, rash, and itching. HEMATOLOGY/LYMPHOLOGY Negative for prolonged bleeding, bruising easily, and swollen nodes. ENDOCRINE: Negative for cold or heat intolerance, polyuria, polydipsia and goiter. NEURO: negative Physical Exam: Constitutional: Pt is a well developed 32 year old female who is alert, oriented and cooperative Eyes: Following during examination. No redness or drainage. Respiratory: RR normal and nonlabored. Even breathing. No evidence of distress or shortness of breath. Psychology: Patient is engaged during conversation. Normal affect and mood. Does not appear depressed or anxious during encounter. Vascular: Dorsalis pedis and posterior tibial pulses palpable as b/l Capillary Fill time < 5 seconds to digits 1-5 b/l Skin temperature warm to warm proximal to distal b/l Hair growth present to digits Neurological: intact light touch/epicritic sensation - tinel b/l intact protective sensation no significant neurological deficits Dermatological: Nails 1-5 b/l appear normal. Webspaces clean and dry 1-4 b/l. Skin appears well hydrated and supple. good color, texture, turgor. No open lesions present. No callosities present. Musculoskeletal/Orthopaedic: Patient has pain to palpation of right medial ankle along tarsal tunnel Foot type is pronated structurally AJ ROM is full with knee extended and flexed 1st MPJ is full when loaded and no pain or crepitus are noted with ROM. MTJ, STJ are full and free of pain and crepitus. +5/5 muscle strength dorsiflexion, plantarflexion, inversion, eversion b/l Radiographs: 3 views right foot ordered June 26, 2023: I have personally reviewed and interpreted these XR myself: no acute osseous findings. Pes planus noted. 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 History and physical examination performed. 2. XR reviewed with patient and interpreted today 3. Discussed pain in right ankle. Suspect component of flatfoot. Cannot exclude fibrous coalition. Will try inserts. If pain fails to improve, could consider mri to evaluate for tarsal coalition. Gustavo Vidal DPM Podiatry [address] [facility] [id number] Dept: [phone] Dept AMB ROOMING INTAKE FLOWSHEET DATA Pain Pain Level: 4 Pain Location: Foot-Right Description: Stabbing, Dull, Throbbing Duration Amount of Time: 1.5 Duration Units: Months Frequency: Intermittent Intervention/Comfort measure: Reposition, Relaxation, Massage Patient presents with: Right Foot - New, Pain Patient c/o R foot pain that started a month ago. Was constant and pretty severe for 2 weeks and then got somewhat better. No injury. XR completed today. documented in this encounter [facility] 06-26-2023 Note HNO ID: [id number] Author: UZMA MARTINI RN Service: ? Author Type: Registered Nurse Type: Progress Notes Filed: 06/27/2023 09:51 Note Text: AMB ROOMING INTAKE FLOWSHEET DATA Pain Pain Level: 4 Pain Location: Foot-Right Description: Stabbing, Dull, Throbbing Duration Amount of Time: 1.5 Duration Units: Months Frequency: Intermittent Intervention/Comfort measure: Reposition, Relaxation, Massage Patient presents with: Right Foot - New, Pain Patient c/o R foot pain that started a month ago. Was constant and pretty severe for 2 weeks and then got somewhat better. No injury. XR completed today. [facility] 06-26-2023 History of Presen t illness Narrative Radiology Service Progress Note PATIENT NAME: Lis Robledo DATE OF SERVICE: June 26, 2023 TIME: 12:58 PM PATIENT IDENTITY VERIFICATION COMPLETED USING TWO (2) IDENTIFIERS: Name and Date of confirmed by patient verbally. FALL SCREENING: Has the patient had 2 falls in the last year or 1 fall with injury or currently using an Ambulatory Assistive Device (Walker, Cane, Wheelchair, Crutches, etc.)? No PATIENT GENDER DATA: Female. status: : No status: NO. PATIENT RELEVANT IMPLANT DATA REVIEWED: Not Applicable PATIENT PRESENTS WITH AN IMPLANTABLE OR ATTACHED HOT METAL MIXER OPERATOR: No RADIOLOGY DEPARTMENT: General X-ray: Exam(s) Completed: Lower Extremity X-Ray(s): Foot, Right and Wt. Bearing PERIPHERAL IV DATA: Not applicable SIGNED BY: RT Shital(R) June 26, 2023 12:58 PM documented in this encounter [facility] 06-26-2023 Note HNO ID: [id number] Author: HENRY WILCOX RT(R) Service: Radiology Author Type: Technologist Type: Progress Notes Filed: 06/26/2023 13:07 Note Text: Radiology Service Progress Note PATIENT NAME: Lis Robledo DATE OF SERVICE: June 26, 2023 TIME: 12:58 PM PATIENT IDENTITY VERIFICATION COMPLETED USING TWO (2) IDENTIFIERS: Name and Date of confirmed by patient verbally. FALL SCREENING: Has the patient had 2 falls in the last year or 1 fall with injury or currently using an Ambulatory Assistive Device (Walker, Cane, Wheelchair, Crutches, etc.)? No PATIENT GENDER DATA: Female. status: : No status: NO. PATIENT RELEVANT IMPLANT DATA REVIEWED: Not Applicable PATIENT PRESENTS WITH AN IMPLANTABLE OR ATTACHED HOT METAL MIXER OPERATOR: No RADIOLOGY DEPARTMENT: General X-ray: Exam(s) Completed: Lower Extremity X-Ray(s): Foot, Right and Wt. Bearing PERIPHERAL IV DATA: Not applicable SIGNED BY: RT Shital(R) June 26, 2023 12:58 PM [facility] 02-25-2023 Instructions Tianna Ortiz APRN.[facility] - 02/25/2023 9:44 AM EST ASSESSMENT/PLAN: 1. Sore throat - ICD9: 462, ICD10: J02.9 (primary diagnosis) - Group A strep molecular testing positive - Amoxicillin for 10 days. - Discussed supportive care treatment with fluids, rest and analgesia. - The patient may also use warm salt water gargles, throat lozenges and/or OTC throat spray as needed. - Contagious dz precautions discussed- including considered contagious until on antibiotics for 24 hours - STREP A MOLECULAR (POC) 2. Strep throat - ICD9: 034.0, ICD10: J02.0 - AMOXICILLIN 500 MG CAPSULE - Follow-up with your PCP in 3-5 days if symptoms have not improved or sooner if symptoms worsen - Discussed red flags and need for immediate medical evaluation if any occur. - Discussed supportive care treatment with fluids, rest and analgesia. - Discussed expected course of illness Tianna Ortiz APRN.[facility] STREP INFECTIONS: Streptococcal bacteria can cause a sore throat, ear and sinus infections, and skin diseases. Strep throat is diagnosed by a special throat swab or culture test. These infections require either an antibiotic shot or an oral antibiotic medicine to get rid of all the bacteria and prevent rheumatic fever, a dangerous complication. The symptoms of Strep infection, however, usually get better after just 2-3 days of drug treatment. These infections are very contagious; any close contacts who have a fever, sore throat, or illness symptoms should see their doctor right away. Strep is no longer contagious after 24 hours of antibiotic treatment so you may return to school or work if your fever and pain are better in one day. Strep infections can cause serious complications including throat abscess, rheumatic fever and kidney disease, so be sure to take all your antibiotic medicine. See your doctor or return here if your symptoms worsen or are not improved in 3 days or for difficulty breathing or inability to swallow. documented in this encounter [facility] 02-25-2023 History of Presen t illness Narrative Subjective Sore Throat Associated symptoms include congestion and headaches. Pertinent negatives include no coughing, diarrhea, ear pain or vomiting. Lis Robledo is a 32 year old female who presents with 2 days of sore throat, body aches, fever, nasal congestion. She has not had any sick contacts. She has been taking Dayquil and using throat lozenges. Review of Systems Constitutional: Positive for chills, fever and malaise/fatigue. HENT: Positive for congestion and sore throat. Negative for ear pain. Respiratory: Negative for cough. Cardiovascular: Negative. Gastrointestinal: Negative for diarrhea, nausea and vomiting. Musculoskeletal: Positive for myalgias. Neurological: Positive for headaches. BP 102/60 Pulse 98 Temp 36.8 C (98.3 F) Resp 18 Wt 54.9 kg (121 lb) LMP 08/22/2021 (Exact Date) SpO2 98% BMI 21.74 kg/m PAST MEDICAL HISTORY Diagnosis Date Abnormal Pap smear of cervix Anemia Anemia complicating , second trimester 03/08/2021 03/08/21- HGB 9.4. Oral iron started. Repeat CBC at 32 weeks gestation. Order placed. Margot Shell, OBSTETRICAL TECH.CNM History of kidney stones HPV test positive PAST SURGICAL HISTORY Procedure Laterality Date DELIVERY ONLY 11/25/2014 , low transverse CONIZATION CERVIX W/WO D&C RPR KNIFE/LASER 2006 D&C, DIAG AND/OR THERAPEUTIC INSERTION OF IUD N/A 05/22/2016 paragard- removed 2020 LAPAROSCOPY W/RMVL ADNEXAL STRUCTURES Bilateral 09/20/2021 bilateral salpingectomy for sterilization- Liletta insertion VAGINOSCOPY 2006 ALLERGIES Patient has no known allergies. MEDICATIONS levonorgestrel (MIRENA) 21 mcg/24 hours (8 yrs) 52 mg IUD^1 Each by INTRAUTERINE route as directed.^Disp: 1 Each^Rfl: 0 ibuprofen (MOTRIN) 200 mg tablet^Take 400 mg by mouth every 6 hours as needed for pain.^Disp: ^Rfl: acetaminophen (TYLENOL) 325 mg tablet^Take 650 mg by mouth every 6 hours as needed.^Disp: ^Rfl: FAMILY HISTORY Problem Relation Age of Onset Hypertension Mother Migraines Mother No Known Problems Father Bipolar disorder Brother Breast Cancer Maternal Grandmother No Known Problems Maternal Grandfather No Known Problems Paternal Grandmother Cancer Paternal Grandfather Stroke Paternal Grandfather No Known Problems Daughter No Known Problems Daughter No Known Problems Son No Known Problems Son Social History Tobacco Use Smoking status: Former Packs/day: 0.50 Years: 15.00 Additional pack years: 0.00 Total pack years: 7.50 Types: Cigarettes Quit date: 07/13/2020 Years since quittin.6 Smokeless tobacco: Never Tobacco comments: Vape Vaping Use Vaping Use: current everyday user Substances: Nicotine Devices: Disposable Substance Use Topics Alcohol use: Not Currently Alcohol/week: 3.0 standard drinks of alcohol Types: 3 Cans of Beer (12oz) per week Drug use: No Objective Physical Exam Vitals and nursing note reviewed. Constitutional: General: She is not in acute distress. Appearance: She is ill-appearing. HENT: Right Ear: Tympanic membrane, ear canal and external ear normal. Left Ear: Tympanic membrane, ear canal and external ear normal. Nose: Nose normal. Mouth/Throat: Mouth: Mucous membranes are moist. Pharynx: Uvula midline. Posterior oropharyngeal erythema present. No oropharyngeal exudate. Cardiovascular: Rate and Rhythm: Normal rate and regular rhythm. Heart sounds: Normal heart sounds. Pulmonary: Effort: Pulmonary effort is normal. No respiratory distress. Breath sounds: Normal breath sounds. No wheezing or rales. Musculoskeletal: Cervical back: Neck supple. Lymphadenopathy: Cervical: No cervical adenopathy. Skin: General: Skin is warm and dry. Findings: No erythema or rash. Neurological: Mental Status: She is alert. ASSESSMENT/PLAN: 1. Sore throat - ICD9: 462, ICD10: J02.9 (primary diagnosis) - Group A strep molecular testing positive - Amoxicillin for 10 days. - Discussed supportive care treatment with fluids, rest and analgesia. - The patient may also use warm salt water gargles, throat lozenges and/or OTC throat spray as needed. - Contagious dz precautions discussed- including considered contagious until on antibiotics for 24 hours - STREP A MOLECULAR (POC) 2. Strep throat - ICD9: 034.0, ICD10: J02.0 - AMOXICILLIN 500 MG CAPSULE - Follow-up with your PCP in 3-5 days if symptoms have not improved or sooner if symptoms worsen - Discussed red flags and need for immediate medical evaluation if any occur. - Discussed supportive care treatment with fluids, rest and analgesia. - Discussed expected course of illness Tianna Ortiz APRN.PORTAL DEVELOPER documented in this encounter [facility] 02-25-2023 Note HNO ID: [id number] Author: Tianna Ortiz APRN.PORTAL DEVELOPER Service: ? Author Type: Nurse Practitioner Type: Progress Notes Filed: 02/25/2023 10:10 AM Note Text: Subjective Sore Throat Associated symptoms include congestion and headaches. Pertinent negatives include no coughing, diarrhea, ear pain or vomiting. Lis Robledo is a 32 year old female who presents with 2 days of sore throat, body aches, fever, nasal congestion. She has not had any sick contacts. She has been taking Dayquil and using throat lozenges. Review of Systems Constitutional: Positive for chills, fever and malaise/fatigue. HENT: Positive for congestion and sore throat. Negative for ear pain. Respiratory: Negative for cough. Cardiovascular: Negative. Gastrointestinal: Negative for diarrhea, nausea and vomiting. Musculoskeletal: Positive for myalgias. Neurological: Positive for headaches. BP 102/60 Pulse 98 Temp 36.8 ?C (98.3 ?F) Resp 18 Wt 54.9 kg (121 lb) LMP 08/22/2021 (Exact Date) SpO2 98% BMI 21.74 kg/m? PAST MEDICAL HISTORY Diagnosis Date Abnormal Pap smear of cervix Anemia Anemia complicating , second trimester 03/08/2021 03/08/21- HGB 9.4. Oral iron started. Repeat CBC at 32 weeks gestation. Order placed. Margot Shell, OBSTETRICAL TECH.CNM History of kidney stones HPV test positive PAST SURGICAL HISTORY Procedure Laterality Date DELIVERY ONLY 11/25/2014 , low transverse CONIZATION CERVIX W/WO DANDC RPR KNIFE/LASER 2006 DANDC, DIAG AND/OR THERAPEUTIC INSERTION OF IUD N/A 05/22/2016 paragard- removed 2020 LAPAROSCOPY W/RMVL ADNEXAL STRUCTURES Bilateral 09/20/2021 bilateral salpingectomy for sterilization- Liletta insertion VAGINOSCOPY 2006 ALLERGIES Patient has no known allergies. MEDICATIONS levonorgestrel (MIRENA) 21 mcg/24 hours (8 yrs) 52 mg IUD1 Each by INTRAUTERINE route as directed.Disp: 1 EachRfl: 0 ibuprofen (MOTRIN) 200 mg tabletTake 400 mg by mouth every 6 hours as needed for pain.Disp: Rfl: acetaminophen (TYLENOL) 325 mg tabletTake 650 mg by mouth every 6 hours as needed.Disp: Rfl: FAMILY HISTORY Problem Relation Age of Onset Hypertension Mother Migraines Mother No Known Problems Father Bipolar disorder Brother Breast Cancer Maternal Grandmother No Known Problems Maternal Grandfather No Known Problems Paternal Grandmother Cancer Paternal Grandfather Stroke Paternal Grandfather No Known Problems Daughter No Known Problems Daughter No Known Problems Son No Known Problems Son Social History Tobacco Use Smoking status: Former Packs/day: 0.50 Years: 15.00 Additional pack years: 0.00 Total pack years: 7.50 Types: Cigarettes Quit date: 07/13/2020 Years since quittin.6 Smokeless tobacco: Never Tobacco comments: Vape Vaping Use Vaping Use: current everyday user Substances: Nicotine Devices: Disposable Substance Use Topics Alcohol use: Not Currently Alcohol/week: 3.0 standard drinks of alcohol Types: 3 Cans of Beer (12oz) per week Drug use: No Objective Physical Exam Vitals and nursing note reviewed. Constitutional: General: She is not in acute distress. Appearance: She is ill-appearing. HENT: Right Ear: Tympanic membrane, ear canal and external ear normal. Left Ear: Tympanic membrane, ear canal and external ear normal. Nose: Nose normal. Mouth/Throat: Mouth: Mucous membranes are moist. Pharynx: Uvula midline. Posterior oropharyngeal erythema present. No oropharyngeal exudate. Cardiovascular: Rate and Rhythm: Normal rate and regular rhythm. Heart sounds: Normal heart sounds. Pulmonary: Effort: Pulmonary effort is normal. No respiratory distress. Breath sounds: Normal breath sounds. No wheezing or rales. Musculoskeletal: Cervical back: Neck supple. Lymphadenopathy: Cervical: No cervical adenopathy. Skin: General: Skin is warm and dry. Findings: No erythema or rash. Neurological: Mental Status: She is alert. ASSESSMENT/PLAN: 1. Sore throat - ICD9: 462, ICD10: J02.9 (primary diagnosis) - Group A strep molecular testing positive - Amoxicillin for 10 days. - Discussed supportive care treatment with fluids, rest and analgesia. - The patient may also use warm salt water gargles, throat lozenges and/or OTC throat spray as needed. - Contagious dz precautions discussed- including considered contagious until on antibiotics for 24 hours - STREP A MOLECULAR (POC) 2. Strep throat - ICD9: 034.0, ICD10: J02.0 - AMOXICILLIN 500 MG CAPSULE - Follow-up with your PCP in 3-5 days if symptoms have not improved or sooner if symptoms worsen - Discussed red flags and need for immediate medical evaluation if any occur. - Discussed supportive care treatment with fluids, rest and analgesia. - Discussed expected course of illness Tianna Ortiz APRN.[facility] 12-16-2022 Instructions Sarika Palacios Ma 12/16/2022 3:18 PM EDT POST IUD INSTRUCTIONS You may have irregular bleeding during the first 3 months of use. You may have mild-severe cramping for the next 48 hours. You may use over the counter medication (Motrin, Tylenol) as needed. Your IUD must be removed or replaced based on the following table: IUD Type Removed or replaced within: Tara 3 years Kyleena 5 years Mirena 8 years Paragard 10 years Call my office for signs/symptoms of infection such as severe cramping, fever, or unusual bleeding. Check for string placement as instructed by your doctor. If you have any additional questions, please contact the office. documented in this encounter [facility] 12-16-2022 History of Presen t illness Narrative Lis presents for removal of IUD due to irregular bleeding. UNIVERSAL PROTOCOL / SAFETY CHECKLIST Procedure to be Performed: IUD removal, Mirena IUD insertion Sign In: A Moment of CARE was completed. Personnel directly involved with the procedure wore the appropriate PPE (Personal Protective Equipment). Patient/Surrogate Stated/Verified: PATIENT VERIFIED(optional for EMERGENT procedures): Patient name, Date of , Relevant allergies, and The intended procedure Time Out Communication: Intended patient and procedure match the source documents. Consent documented and matches the intended procedure. Implant(s) inserted: Correct implant(s) confirmed including size and side. and Expiration date(s) reviewed. Sign Out: SIGN OUT (optional for EMERGENT procedures): No specimen collected. All instruments, equipment, possible retained foreign bodies accounted for. Post-procedure follow-up management communicated and Plan of Care Visit completed when applicable. Laura Hurley M.D. PROCEDURE: Speculum placed in vagina, IUD string visualized and grasped with ring forceps. ASSESSMENT/PLAN: IUD removed without difficulty, intact, and patient tolerated procedure well. Contraception plans: Mirena IUD Laura Hurley MD Lis presents today for IUD insertion for contraception. Patient's last menstrual period was 08/22/2021 (exact date). GC/chlamydia: Not done: no risk factors and/or patient declines screening test: not done, has IUD Side effects including irregular bleeding were discussed with the patient. The patient understands that it should be removed in 8 years or sooner if the patient desires a . IUD source: office provided IUD lot #: [id number] Exp date: 08/20/2024 The cervix was prepped with betadine. The uterus sounded to 8 cm and the uterus is Anteverted.. Using sterile technique, the Mirena IUD was inserted without difficulty and the string was cut to 2cm from the external os of the cervix. Patient tolerated procedure well. PLAN: Patient was advised to observe for signs and symptoms of infection including but not limited to fever, malodorous vaginal discharge and/or pain. The patient was told to check the string monthly for accurate placement. Bleeding expectations were reviewed. Follow up for next annual exam or sooner as needed. Laura Hurley MD documented in this encounter [facility] 11-11-2022 History of Presen t illness Narrative Lis Robledo is a 32 year old female who presents for problem visit for f/u for irregular bleeding. HPI: had tubal and liletta inserted 08/2021 and has been having irregular bleeding since then. Bleeds about 3 days on and 3 off. Sometimes dark brown and mucous and sometimes bright red. No pain with intercourse. No increased bleeding after. Does know when it would be her period b/c of pain w/ Bms and increased cramping. OB History T5 L6 SAB1 IAB0 Ectopic0 Multiple1 Live Births6 Comment: Handkerchief Maker History LMP: 08/22/2021 (Exact Date), IUD Age at Menarche: Age at First : Age at Menopause: Handkerchief Maker History Comments: Sexual Activity: Yes; Male; bilateral salpingectomy Contraception: Tubal Ligation PAST MEDICAL HISTORY Diagnosis Date Abnormal Pap smear of cervix Anemia Anemia complicating , second trimester 03/08/2021 03/08/21- HGB 9.4. Oral iron started. Repeat CBC at 32 weeks gestation. Order placed. Margot Shell APRN.CNM History of kidney stones HPV test positive PAST SURGICAL HISTORY Procedure Laterality Date DELIVERY ONLY 11/25/2014 , low transverse CONIZATION CERVIX W/WO D&C RPR KNIFE/LASER 2006 D&C, DIAG AND/OR THERAPEUTIC INSERTION OF IUD N/A 05/22/2016 paragard- removed 2020 LAPAROSCOPY W/RMVL ADNEXAL STRUCTURES Bilateral 09/20/2021 bilateral salpingectomy for sterilization- Liletta insertion VAGINOSCOPY 2006 FAMILY HISTORY Problem Relation Age of Onset Hypertension Mother Migraines Mother No Known Problems Father Bipolar disorder Brother Breast Cancer Maternal Grandmother No Known Problems Maternal Grandfather No Known Problems Paternal Grandmother Cancer Paternal Grandfather Stroke Paternal Grandfather No Known Problems Daughter No Known Problems Daughter No Known Problems Son No Known Problems Son Social History Tobacco Use Smoking status: Former Packs/day: 0.50 Years: 15.00 Additional pack years: 0.00 Total pack years: 7.50 Types: Cigarettes Quit date: 07/13/2020 Years since quittin.3 Smokeless tobacco: Never Tobacco comments: Vape Vaping Use Vaping Use: current everyday user Substances: Nicotine Devices: Disposable Substance Use Topics Alcohol use: Not Currently Alcohol/week: 7.5 standard drinks of alcohol Types: 3 Cans of Beer (12oz) per week Drug use: No Current Outpatient Medications Medication Sig ibuprofen (MOTRIN) 200 mg tablet Take 400 mg by mouth every 6 hours as needed for pain. levonorgestrel (LILETTA) 20.1 mcg/24 hrs (6 yrs) 52 mg IUD 1 Each by INTRAUTERINE route as directed. acetaminophen (TYLENOL) 325 mg tablet Take 650 mg by mouth every 6 hours as needed. Current Facility-Administered Medications Medication Dose Route Frequency NaCl 0.9% iv infusion 500 mL/hr INTRAVENOUS PRN diphenhydrAMINE 50 mg injection (BENADRYL) 50 mg INTRAVENOUS PRN hydrocortisone sodium succinate (PF) 100 mg injection (Solu-CORTEF) 100 mg INTRAVENOUS PRN EPINEPHrine 1 mg/mL (1 mL) 0.3 mg injection 0.3 mg INTRAMUSCULAR PRN Allergies As of Date: 11/11/2022 (No Known Allergies) Fully Assessed 08/29/2022 Allergies and current medication updated:Yes EXAM: BP 98/58 Wt 123 lb (55.8kg) LMP 08/22/2021 GENERAL: pleasant, female in no apparent distress HEENT: Normocephalic, atraumatic, mucus membranes moist, and no lesions NPELVIC: external genitalia normal, normal Bartholin's glands, urethra, Glendon's glands, no vulvar lesions, no cervical lesions, good vaginal support, physiologic discharge present, normal appearing perineal body and perianal region, IUD strings 3 cm long. TVUS shows IUD in cervical canal and lower uterine segment BIMANUAL: uterus normal size, shape and consistency, no adnexal masses, and non-tender ASSESSMENT AND PLAN: irreg bleeding, IUD in lower uterine segment. Recommend replacemtn trial. S he agrees w/ this Laura Hurley MD documented in this encounter [facility] 08-25-2022 History of Presen t illness Narrative Subjective The history is provided by the patient. No salesperson fashion accessories was used. HPI Lis Moreno is a 31 year old female who presents today for CC of right eye irritation/redness for 3 days. She is also having pressure in right ear. Recent uri, improving. No treatment or medications. BP 98/60 Pulse 82 Temp 36.4 C (97.6 F) Resp 21 Wt 51.2 kg (112 lb 12.8 oz) LMP 08/22/2021 (Exact Date) SpO2 99% BMI 20.63 kg/m Social History Tobacco Use Smoking status: Former Packs/day: 0.50 Years: 15.00 Pack years: 7.50 Types: Cigarettes Quit date: 07/13/2020 Years since quittin.1 Smokeless tobacco: Never Vaping Use Vaping Use: current everyday user Substances: Nicotine Devices: Disposable Substance Use Topics Alcohol use: Not Currently Alcohol/week: 7.5 standard drinks Types: 3 Cans of Beer (12oz) per week Drug use: No PAST MEDICAL HISTORY Diagnosis Date Abnormal Pap smear of cervix Anemia Anemia complicating , second trimester 03/08/2021 03/08/21- HGB 9.4. Oral iron started. Repeat CBC at 32 weeks gestation. Order placed. Margot Shell APRN.CNM History of kidney stones HPV test positive I have confirmed and edited as necessary, the [facility] Review of Systems Constitutional: Negative for chills, fever and malaise/fatigue. HENT: Positive for congestion, ear pain and sinus pain. Negative for sore throat. Eyes: Positive for redness. Negative for discharge. Respiratory: Negative for cough, sputum production, shortness of breath and wheezing. Cardiovascular: Negative for chest pain. Gastrointestinal: Negative for abdominal pain, diarrhea, nausea and vomiting. Musculoskeletal: Negative for myalgias. Skin: Negative for itching and rash. Neurological: Negative for headaches. All other systems reviewed and are negative. Objective Physical Exam Vitals and nursing note reviewed. HENT: Head: Normocephalic and atraumatic. Right Ear: Ear canal and external ear normal. A middle ear effusion (purulent) is present. Tympanic membrane is injected and bulging. Left Ear: Tympanic membrane, ear canal and external ear normal. Nose: Congestion and rhinorrhea present. No mucosal edema. Right Sinus: No maxillary sinus tenderness or frontal sinus tenderness. Left Sinus: No maxillary sinus tenderness or frontal sinus tenderness. Mouth/Throat: Pharynx: Uvula midline. No oropharyngeal exudate or posterior oropharyngeal erythema. Eyes: General: Lids are normal. Lids are everted, no foreign bodies appreciated. Vision grossly intact. Right eye: No foreign body or discharge. Left eye: No foreign body or discharge. Extraocular Movements: Extraocular movements intact. Conjunctiva/sclera: Right eye: Right conjunctiva is injected. Left eye: Left conjunctiva is not injected. Pupils: Pupils are equal, round, and reactive to light. Funduscopic exam: Right eye: Red reflex present. Left eye: Red reflex present. Cardiovascular: Rate and Rhythm: Normal rate and regular rhythm. Heart sounds: Normal heart sounds. Pulmonary: Effort: Pulmonary effort is normal. Breath sounds: Normal breath sounds. Lymphadenopathy: Head: Right side of head: No submental, submandibular or tonsillar adenopathy. Left side of head: No submental, submandibular or tonsillar adenopathy. Cervical: No cervical adenopathy. Skin: General: Skin is warm and dry. Neurological: Mental Status: She is alert. Psychiatric: Mood and Affect: Affect normal. ASSESSMENT/PLAN: 1. Acute otitis media, right - ICD9: 382.9, ICD10: H66.91 (primary diagnosis) - Will begin treatment with Augmentin 875 mg PO BID for 7 days - Supportive care with plenty of fluids, rest, and analgesia prn. - Follow up in one week if symptoms persist or worsen. 2. Irritation of right eye - ICD9: 379.99, ICD10: H57.89 Appears to be from congestion/ear Augmentin would cover if pink eye Follow up with PCP as needed Diagnosis and treatment plan were discussed and questions were answered to the patient's satisfaction. Pt acknowledged understanding of concepts and follow up plan. Specific signs and symptoms that would indicate the need for higher level of care were discussed in detail warranting prompt ER evaluation. Filomena Bhatia APRN.CNP documented in this encounter [facility] 02-01-2022 History of Presen t illness Narrative Subjective: Patient is status post a CAT scan of her abdomen and pelvis for left upper quadrant abdominal pain. This did not show any abnormalities within the ribs nor did it show any signs of hernia. Patient herself states that her discomfort has improved and she is no longer noticing the bulge. Objective:Blood pressure 116/74, pulse 83, temperature 36.5 C (97.7 F), height 170.2 cm (5' 7), weight 88.5 kg (195 lb 3.2 oz), SpO2 94 %. Abdomen is soft nontender I do not feel anything that feels like costochondritis I cannot feel any palpable masses in the left upper quadrant and she is not tender today. Assessment:Luq pain (primary encounter diagnosis) Rib pain Plan: At this point I want her to gradually increase her activities do some stretching in the area and use ibuprofen as needed for discomfort. There is no surgical interventions needed. documented in this encounter [facility] 01-29-2022 History of Presen t illness Narrative Radiology Service Progress Note DATE OF SERVICE: January 29, 2022 TIME: 3:57 PM PATIENT IDENTITY VERIFICATION COMPLETED USING TWO (2) STANDARD IDENTIFIERS: Name and Date of confirmed by patient verbally. FALL SCREENING: Has the patient had 2 falls in the last year or 1 fall with injury or currently using an Ambulatory Assistive Device (Walker, Cane, Wheelchair, Crutches, etc.)? No PATIENT GENDER DATA: Female. status: : No status: NO. PATIENT RELEVANT IMPLANT DATA REVIEWED: Yes ALLERGIES: Reviewed and unchanged CONTRAST ALLERGY: NO. EXAM: CT -CONTRAST INDUCED NEPHROPATHY RISK FACTORS: Not applicable CREATININE: No results found for: CREAT, EGFROTH, EGFRAA P.O.C.T. RESULTS: POC done: Yes, See Lab Tab January 29, 2022 TREATMENT: N/A PERIPHERAL IV DATA: Ambulatory: A peripheral IV was started in the Left antecubital site with a Angio cath: 22 gauge. RADIOLOGY DEPARTMENT: CT; Exam(s) Completed: Abdomen/Pelvis SIGNATURE: RT Crystal(Deborah) PATIENT NAME: Lis Moreno DATE: January 29, 2022 TIME: 3:57 PM documented in this encounter [facility] 01-23-2022 Instructions Yvonne Bess APRN.CNP - 01/23/2022 7:04 PM EDT Please follow up with general surgery as your symptoms may be that of a hernia. documented in this encounter [facility] 01-23-2022 History of Presen t illness Narrative This note was created using [employer]. Subjective Lis Moreno is a 31 year old female. 31 year old female with no significant PMH presents with complaints of left rib pain. Acute onset 6 months ago initially Left upper abdomen/rib Bulge the size of fist that she states came out from under her ribs. States she has experienced similar bouts since Intermittent States that can appear with bending over or lifting. Denies fever or chills Denies bowel or bladder Had baby 8 months ago vaginally. 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 The history is provided by the patient. No salesperson fashion accessories was used. Musculoskeletal Problem This is a recurrent problem. The current episode started more than 1 month ago. The problem occurs every several days. The problem has been waxing and waning. Pertinent negatives include no abdominal pain, anorexia, arthralgias, change in bowel habit, chest pain, chills, congestion, coughing, diaphoresis, fatigue, fever, headaches, joint swelling, myalgias, nausea, neck pain, numbness, rash, sore throat, swollen glands, urinary symptoms, vertigo, visual change, vomiting or weakness. The symptoms are aggravated by bending (lifting). She has tried nothing for the symptoms. The treatment provided no relief. PAST MEDICAL HISTORY Diagnosis Date Abnormal Pap smear of cervix Anemia Anemia complicating , second trimester 03/08/2021 03/08/21- HGB 9.4. Oral iron started. Repeat CBC at 32 weeks gestation. Order placed. Margot Shell APRN.CNM History of kidney stones HPV test positive PAST SURGICAL HISTORY Procedure Laterality Date DELIVERY ONLY 11/25/2014 , low transverse CONIZATION CERVIX W/WO D&C RPR KNIFE/LASER 2006 D&C, DIAG AND/OR THERAPEUTIC INSERTION OF IUD N/A 05/22/2016 paragard LAPAROSCOPY W/RMVL ADNEXAL STRUCTURES Bilateral 09/20/2021 bilateral salpingectomy for sterilization VAGINOSCOPY 2006 ALLERGIES Patient has no known allergies. MEDICATIONS levonorgestrel (LILETTA) 20.1 mcg/24 hrs (6 yrs) 52 mg IUD^1 Each by INTRAUTERINE route as directed.^Disp: 1 Each^Rfl: 0 [id number] ( PLUS DHA) 18 mg iron-800 mcg-290 mg cppt^Take 1 tablet by mouth once daily.^Disp: 30 Each^Rfl: 12 acetaminophen (TYLENOL) 325 mg tablet^Take 650 mg by mouth every 6 hours as needed.^Disp: ^Rfl: omeprazole (PRILOSEC) 20 mg capsule^Take 1 capsule by mouth once daily.^Disp: 30 capsule^Rfl: 3 (Patient not taking: Reported on 01/23/2022) ferrous sulfate 325 mg (65 mg iron) tablet^Take 1 tablet by mouth every other day. take at a meal separate from your vitamin^Disp: 15 tablet^Rfl: 5 (Patient not taking: Reported on 01/23/2022) FAMILY HISTORY Problem Relation Age of Onset Hypertension Mother Migraines Mother No Known Problems Father Bipolar disorder Brother Breast Cancer Maternal Grandmother No Known Problems Maternal Grandfather No Known Problems Paternal Grandmother Cancer Paternal Grandfather Stroke Paternal Grandfather No Known Problems Daughter No Known Problems Daughter No Known Problems Son No Known Problems Son Social History Tobacco Use Smoking status: Former Packs/day: 0.50 Years: 15.00 Pack years: 7.50 Types: Cigarettes Quit date: 07/13/2020 Years since quittin.5 Smokeless tobacco: Never Vaping Use Vaping Use: current everyday user Substances: Nicotine Devices: Disposable Substance Use Topics Alcohol use: Not Currently Alcohol/week: 7.5 standard drinks Types: 3 Cans of Beer (12oz) per week Drug use: No Review of Systems Constitutional: Negative for chills, diaphoresis, fatigue and fever. HENT: Negative for congestion and sore throat. Eyes: Negative for discharge and itching. Respiratory: Negative for apnea, cough, choking and chest tightness. Cardiovascular: Negative for chest pain. Gastrointestinal: Negative for abdominal pain, anorexia, change in bowel habit, diarrhea, nausea and vomiting. Musculoskeletal: Negative for arthralgias, joint swelling, myalgias and neck pain. Skin: Negative for color change, pallor and rash. Allergic/Immunologic: Negative for environmental allergies, food allergies and immunocompromised state. Neurological: Negative for vertigo, weakness, numbness and headaches. Hematological: Negative for adenopathy. Does not bruise/bleed easily. Psychiatric/Behavioral: Negative for agitation and behavioral problems. Objective BP 128/80 Pulse 81 Temp 37.2 C (98.9 F) Resp 21 Wt 59.1 kg (130 lb 6.4 oz) LMP 08/22/2021 (Exact Date) SpO2 100% BMI 23.85 kg/m Physical Exam Vitals and nursing note reviewed. Constitutional: General: She is not in acute distress. Appearance: Normal appearance. She is normal weight. She is not ill-appearing, toxic-appearing or diaphoretic. HENT: Head: Normocephalic and atraumatic. Right Ear: Ear canal and external ear normal. Left Ear: Ear canal and external ear normal. Nose: Nose normal. No congestion or rhinorrhea. Mouth/Throat: Mouth: Mucous membranes are moist. Pharynx: No oropharyngeal exudate or posterior oropharyngeal erythema. Eyes: General: Right eye: No discharge. Left eye: No discharge. Extraocular Movements: Extraocular movements intact. Conjunctiva/sclera: Conjunctivae normal. Pupils: Pupils are equal, round, and reactive to light. Cardiovascular: Rate and Rhythm: Normal rate and regular rhythm. Pulses: Normal pulses. Heart sounds: Normal heart sounds. No murmur heard. No friction rub. Pulmonary: Effort: Pulmonary effort is normal. No respiratory distress. Breath sounds: Normal breath sounds. No stridor. No wheezing, rhonchi or rales. Chest: Chest wall: No tenderness. Abdominal: General: Abdomen is flat. There is no distension. Palpations: Abdomen is soft. There is no mass. Tenderness: There is no abdominal tenderness. There is no right CVA tenderness, left CVA tenderness, guarding or rebound. Hernia: No hernia is present. Musculoskeletal: General: No swelling, tenderness, deformity or signs of injury. Normal range of motion. Cervical back: Normal range of motion and neck supple. No rigidity. Right lower leg: No edema. Left lower leg: No edema. Lymphadenopathy: Cervical: No cervical adenopathy. Skin: General: Skin is warm and dry. Capillary Refill: Capillary refill takes less than 2 seconds. Coloration: Skin is not jaundiced or pale. Findings: No bruising, erythema, lesion or rash. Neurological: General: No focal deficit present. Mental Status: She is alert and oriented to person, place, and time. Cranial Nerves: No cranial nerve deficit. Sensory: No sensory deficit. Motor: No weakness. Coordination: Coordination normal. Gait: Gait normal. Psychiatric: Mood and Affect: Mood normal. Behavior: Behavior normal. Thought Content: Thought content normal. Judgment: Judgment normal. Assessment and Plan ASSESSMENT/PLAN: 1. Rib pain - ICD9: 786.50, ICD10: R07.81 (primary diagnosis) Atypical chest pain, symptoms are not consistent with cardiac ischemia due to pleuritic nature of pain and localization of the pain possible etiology include GERD, Costochondritis/chest wall pain, musculoskeletal, and hernia - Chest X-ray today. My reading: normal, no signs of acute disease. Discussed my reading with patient. Radiologist report to follow. - Oxygen saturation 100% - Follow up 3 days - XR RIBS/CHEST 3V AP RIB/OBLS/CXR LEFT - CONSULT TO GENERAL SURGERY 2. Medical condition not demonstrated - ICD9: V65.5, ICD10: Z71.1 Patient describes bulge But not appreciated on exam. Discussed it possibly could be a hernia - CONSULT TO GENERAL SURGERY-as they can further atm manager her symptoms and concerns for hernia. Yvonne Bess APRN.SARA documented in this encounter [facility] 09-25-2021 History of Presen t illness Narrative Patient underwent laparoscopic bilateral salpingectomy for sterilization on 09/20/2021 at [facility] without complications. She was discharged home same day. Pathology is pending. Laura Hurley MD documented in this encounter [facility] 08-06-2021 Miscellaneous Notes Title 19 scanned into [facility]. To plastic surgery assistant to keep with surgery sheet. Toña Mcclain RN Patient in office to sign title 19 today. Given to RR. Toña Mcclain RN Patient is going to stop by office to sign a new title 19. Title 19 is on clip board sitting on Title 19 accordion file riley in fax room. Patient called back and is wanting to reschedule her surgery. Is patient able to get surgery before 08/06. She is aware that if not she will need to sign another Title 19. Yaritza Tejeda RN 2nd message left or patient to return phone call Left message to call office. Patient cancelled her surgery on 06/22/2021. Does she want to reschedule? Title 19 was signed 02/07/2021 and is valid for 180 day. Surgery will need scheduled by 08/06/2021 or a new title 19 will need to be completed. documented in this encounter [facility] 03-08-2021 History of Past i llness Narrative Problem Noted Date Diagnosed Date Resolved Date Anemia complicating pregnanc y, second trimester 03/08/2021 08/29/2022 Overview: 03/08/21- HGB 9.4. Oral iron started. Repeat CBC at 32 weeks gestation. Order placed. Margot Shell APRN.CN Encounter for sterilization 02/07/2021 08/29/2022 Overview: February 07, 2021 Risks, benefits and alternatives to sterilization have been discussed with the patient. She declines reversible options including LARC. She understands sterilization is permanent, irreversible, risks of failure, regret and ectopic. In addition she understands there are surgical risks as well. Her questions were answered to her satisfaction and consent was signed. Laura Hurley MD Dichorionic diamniotic twin in first trimester 10/18/2020 05/29/2021 Hx successful (vaginal after ), currently 10/12/2020 05/29/2021 Overview: 10/12/2020 Patient Is 6 para 4. She had 2 successful vaginal births then a delivery with her third child. She had a successful . She desires a repeat . TKRN Risks/benefits/alternatives discussed with patient regarding trial of labor and potential for uterine rupture. Risks include but are not limited to maternal hemorrhage, risk of injury to adjacent organs including potential hysterectomy. risks discussed as well, including potential for permanent neurologic injury or . Overall uterine rupture risk is less than 1% after one section. Is a trial of labor contraindicated for this patient? No If no, calculate rate of success using pre-labor factors: [email or web address]/vagbirth.html Predicted chance of vaginal after : 93% Patient's plan for delivery mode: Trial of labor if no other maternal/ indications for c/s. [facility] consent signed today Laura Hurley MD Quit smoking 10/12/2020 10/18/2020 Overview: 10/12/2020t quit smoking 2-1/2 months ago. She states that she is currently vaping nicotine. Discussed risks of smoking/vaping during and advised pt to continue not smoking.TKRN Patient request for diagnostic testing 10/12/2020 08/29/2022 Overview: 10/12/2020 Patient desires tubal ligation. Patient desires nuchal ultrasound. Considering genetic carrier screening testing.TKRN H/O section 09/06/2015 017 Overview: Planning - signed consent form Darcy Herrmann MD Performed for intolerance to labor. Baby transferred to [facility] x 5 days. Was found to have pulmonary hypertension but recovered fine. Pt wants to Risks/benefits/alternatives discussed with patient regarding trial of labor and potential for uterine rupture. Risks include but are not limited to maternal hemorrhage, risk of injury to adjacent organs including potential hysterectomy. risks discussed as well, including potential for permanent neurologic injury or . Overall uterine rupture risk is less than 1% after one section. Is a trial of labor contraindicated for this patient? No If no, calculate rate of success using pre-labor factors: [email or web address]/vagbirth.html Predicted chance of vaginal after : 82.7% Patient's plan for delivery mode: Trial of labor Vannesa Pearce DO Supervision of other normal 09/19/2014 07/31/2015 Overview: [facility] September 19, 2014 Seen on L&D 09/18/14 for N/V. Given IVF> Irreg. heart rate noted but tracing overall category 1. No decelerations. D/maddy home w/ kick counts and f/u this week for US w/ MFM. Laura Hurley MD complicated by ed or cervical conization, antepartum 05/06/2014 04/30/2016 Overview: 05/06/14: No Medical records were received that indicated she had CKC done at [facility]. Pap in 2007 that was received showed normal pap. High risk due to s moking in first trimester 04/25/2014 04/30/2016 Overview: [facility] [place] Supervision of normal 04/25/2014 06/22/2014 documented as of this encounter (statuses as of 11/12/2022) [facility] History of Past illness Narrative* Problem Noted Date Diagnosed Date Resolved Date Anemia complicating pregnanc y, second trimester 03/08/2021 08/29/2022 Overview: 03/08/21- HGB 9.4. Oral iron started. Repeat CBC at 32 weeks gestation. Order placed. Margot Shell APRN.[facility] Encounter for sterilization 02/07/2021 08/29/2022 Overview: February 07, 2021 Risks, benefits and alternatives to sterilization have been discussed with the patient. She declines reversible options including LARC. She understands sterilization is permanent, irreversible, risks of failure, regret and ectopic. In addition she understands there are surgical risks as well. Her questions were answered to her satisfaction and consent was signed. Laura Hurley MD Dichorionic diamniotic twin in first trimester 10/18/2020 05/29/2021 Hx successful (vaginal after ), currently 10/12/2020 05/29/2021 Overview: 10/12/2020 Patient Is 6 para 4. She had 2 successful vaginal births then a delivery with her third child. She had a successful . She desires a repeat . TKRN Risks/benefits/alternatives discussed with patient regarding trial of labor and potential for uterine rupture. Risks include but are not limited to maternal hemorrhage, risk of injury to adjacent organs including potential hysterectomy. risks discussed as well, including potential for permanent neurologic injury or . Overall uterine rupture risk is less than 1% after one section. Is a trial of labor contraindicated for this patient? No If no, calculate rate of success using pre-labor factors: http://www[facility]/mu/vagbirth.html Predicted chance of vaginal after : 93% Patient's plan for delivery mode: Trial of labor if no other maternal/ indications for c/s. [facility] consent signed today Laura Hurley MD Quit smoking 10/12/2020 10/18/2020 Overview: 10/12/2020t quit smoking 2-1/2 months ago. She states that she is currently vaping nicotine. Discussed risks of smoking/vaping during and advised pt to continue not smoking.TKRN Patient request for diagnostic testing 10/12/2020 08/29/2022 Overview: 10/12/2020 Patient desires tubal ligation. Patient desires nuchal ultrasound. Considering genetic carrier screening testing.TKRN H/O section 09/06/2015 017 Overview: Planning - signed consent form Darcy Herrmann MD Performed for intolerance to labor. [facility] Was found to have pulmonary hypertension but recovered fine. Pt wants to Risks/benefits/alternatives discussed with patient regarding trial of labor and potential for uterine rupture. Risks include but are not limited to maternal hemorrhage, risk of injury to adjacent organs including potential hysterectomy. risks discussed as well, including potential for permanent neurologic injury or . Overall uterine rupture risk is less than 1% after one section. Is a trial of labor contraindicated for this patient? No If no, calculate rate of success using pre-labor factors: http://www[facility] [place] [place]/mfmu/vagbirth.html Predicted chance of vaginal after : 82.7% Patient's plan for delivery mode: Trial of labor Vannesa Pearce DO Supervision of other normal 09/19/2014 07/31/2015 Overview: [facility] [place] September 19, 2014 Seen on L&D 09/18/14 for N/V. Given IVF> Irreg. heart rate noted but tracing overall category 1. No decelerations. D/maddy home w/ kick counts and f/u this week for US w/ MFM. Laura Hurley MD complicated by ed or cervical conization, antepartum 05/06/2014 04/30/2016 Overview: 05/06/14: No Medical records were received that indicated she had CKC done at [place]. Pap in 2007 that was received showed normal pap. High risk due to s moking in first trimester 04/25/2014 04/30/2016 Overview: [facility] [place] Supervision of normal 04/25/2014 06/22/2014 documented as of this encounter (statuses as of 11/19/2022) [facility] History of Past illness Narrative* Problem Noted Date Diagnosed Date Resolved Date Anemia complicating pregnanc y, second trimester 03/08/2021 08/29/2022 Overview: 03/08/21- HGB 9.4. Oral iron started. Repeat CBC at 32 weeks gestation. Order placed. Margot Shell APRN.DENIM Encounter for sterilization 02/07/2021 08/29/2022 Overview: February 07, 2021 Risks, benefits and alternatives to sterilization have been discussed with the patient. She declines reversible options including LARC. She understands sterilization is permanent, irreversible, risks of failure, regret and ectopic. In addition she understands there are surgical risks as well. Her questions were answered to her satisfaction and consent was signed. Laura Hurley MD Dichorionic diamniotic twin in first trimester 10/18/2020 05/29/2021 Hx successful (vaginal after ), currently 10/12/2020 05/29/2021 Overview: 10/12/2020 Patient Is 6 para 4. She had 2 successful vaginal births then a delivery with her third child. She had a successful . She desires a repeat . TKRN Risks/benefits/alternatives discussed with patient regarding trial of labor and potential for uterine rupture. Risks include but are not limited to maternal hemorrhage, risk of injury to adjacent organs including potential hysterectomy. risks discussed as well, including potential for permanent neurologic injury or . Overall uterine rupture risk is less than 1% after one section. Is a trial of labor contraindicated for this patient? No If no, calculate rate of success using pre-labor factors: http://www.bs[email or web address]mfmu/vagbirth.html Predicted chance of vaginal after : 93% Patient's plan for delivery mode: Trial of labor if no other maternal/ indications for c/s. [facility] consent signed today Laura Hurley MD Quit smoking 10/12/2020 10/18/2020 Overview: 10/12/2020t quit smoking 2-1/2 months ago. She states that she is currently vaping nicotine. Discussed risks of smoking/vaping during and advised pt to continue not smoking.TKRN Patient request for diagnostic testing 10/12/2020 08/29/2022 Overview: 10/12/2020 Patient desires tubal ligation. Patient desires nuchal ultrasound. Considering genetic carrier screening testing.TKRN H/O section 09/06/2015 017 Overview: Planning - signed consent form Darcy Herrmann MD Performed for intolerance to labor. [facility]. Was found to have pulmonary hypertension but recovered fine. Pt wants to Risks/benefits/alternatives discussed with patient regarding trial of labor and potential for uterine rupture. Risks include but are not limited to maternal hemorrhage, risk of injury to adjacent organs including potential hysterectomy. risks discussed as well, including potential for permanent neurologic injury or . Overall uterine rupture risk is less than 1% after one section. Is a trial of labor contraindicated for this patient? No If no, calculate rate of success using pre-labor factors: http://www.[email or web address]/mfmu/vagbirth.html Predicted chance of vaginal after : 82.7% Patient's plan for delivery mode: Trial of labor Vannesa Pearce DO Supervision of other normal 09/19/2014 07/31/2015 Overview: Girl on [facility]- [facility] September 19, 2014 Seen on L&D 09/18/14 for N/V. Given IVF> Irreg. heart rate noted but tracing overall category 1. No decelerations. D/maddy home w/ kick counts and f/u this week for US w/ MFM. Laura Hurley MD complicated by ed or cervical conization, antepartum 05/06/2014 04/30/2016 Overview: 05/06/14: No Medical records were received that indicated she had [facility] done at [place]. Pap in 2007 that was received showed normal pap. High risk due to s moking in first trimester 04/25/2014 04/30/2016 Overview: Boy on - [place] Supervision of normal 04/25/2014 06/22/2014 documented as of this encounter (statuses as of 12/17/2022) [facility]12-16-2021 History of Past illness Narrative* Problem Noted Date Diagnosed Date Resolved Date Anemia complicating pregnanc y, second trimester 03/08/2021 08/29/2022 Overview: 03/08/21- HGB 9.4. Oral iron started. Repeat CBC at 32 weeks gestation. Order placed. Margot Shell APRN.CNM Encounter for sterilization 02/07/2021 08/29/2022 Overview: February 07, 2021 Risks, benefits and alternatives to sterilization have been discussed with the patient. She declines reversible options including LARC. She understands sterilization is permanent, irreversible, risks of failure, regret and ectopic. In addition she understands there are surgical risks as well. Her questions were answered to her satisfaction and consent was signed. Laura Hurley MD Dichorionic diamniotic twin in first trimester 10/18/2020 05/29/2021 Hx successful (vaginal after ), currently 10/12/2020 05/29/2021 Overview: 10/12/2020 Patient Is 6 para 4. She had 2 successful vaginal births then a delivery with her third child. She had a successful . She desires a repeat . TKRN Risks/benefits/alternatives discussed with patient regarding trial of labor and potential for uterine rupture. Risks include but are not limited to maternal hemorrhage, risk of injury to adjacent organs including potential hysterectomy. risks discussed as well, including potential for permanent neurologic injury or . Overall uterine rupture risk is less than 1% after one section. Is a trial of labor contraindicated for this patient? No If no, calculate rate of success using pre-labor factors: http://www[facility]/mfmu/vagbirth.html Predicted chance of vaginal after : 93% Patient's plan for delivery mode: Trial of labor if no other maternal/ indications for c/s. [facility] consent signed today Laura Hurley MD Quit smoking 10/12/2020 10/18/2020 Overview: 10/12/2020t quit smoking 2-1/2 months ago. She states that she is currently vaping nicotine. Discussed risks of smoking/vaping during and advised pt to continue not smoking.TKRN Patient request for diagnostic testing 10/12/2020 08/29/2022 Overview: 10/12/2020 Patient desires tubal ligation. Patient desires nuchal ultrasound. Considering genetic carrier screening testing.TKRN H/O section 09/06/2015 017 Overview: Planning - signed consent form Darcy Herrmann MD Performed for intolerance to labor. [facility]. Was found to have pulmonary hypertension but recovered fine. Pt wants to Risks/benefits/alternatives discussed with patient regarding trial of labor and potential for uterine rupture. Risks include but are not limited to maternal hemorrhage, risk of injury to adjacent organs including potential hysterectomy. risks discussed as well, including potential for permanent neurologic injury or . Overall uterine rupture risk is less than 1% after one section. Is a trial of labor contraindicated for this patient? No If no, calculate rate of success using pre-labor factors: http://www.bs.[email or web address]/mfmu/vagbirth.html Predicted chance of vaginal after : 82.7% Patient's plan for delivery mode: Trial of labor Vannesa Pearce DO Supervision of other normal 09/19/2014 07/31/2015 Overview: Girl on - [place] September 19, 2014 Seen on L&D 09/18/14 for N/V. Given IVF> Irreg. heart rate noted but tracing overall category 1. No decelerations. D/maddy home w/ kick counts and f/u this week for US w/ MFM. Laura Hurley MD complicated by ed or cervical conization, antepartum 05/06/2014 04/30/2016 Overview: 05/06/14: No Medical records were received that indicated she had [facility] done at [facility]. Pap in 2007 that was received showed normal pap. High risk due to s moking in first trimester 04/25/2014 04/30/2016 Overview: [facility] on - [place] Supervision of normal 04/25/2014 06/22/2014 documented as of this encounter (statuses as of 01/26/2023) [facility]12-[facility] History of Past illness Narrative* Problem Noted Date Diagnosed Date Resolved Date Anemia complicating pregnanc y, second trimester 03/08/2021 08/29/2022 Overview: 03/08/21- HGB 9.4. Oral iron started. Repeat CBC at 32 weeks gestation. Order placed. Margot Shell APRN.CNM Encounter for sterilization 02/07/2021 08/29/2022 Overview: February 07, 2021 Risks, benefits and alternatives to sterilization have been discussed with the patient. She declines reversible options including LARC. She understands sterilization is permanent, irreversible, risks of failure, regret and ectopic. In addition she understands there are surgical risks as well. Her questions were answered to her satisfaction and consent was signed. Laura Hurley MD Dichorionic diamniotic twin in first trimester 10/18/2020 05/29/2021 Hx successful (vaginal after ), currently 10/12/2020 05/29/2021 Overview: 10/12/2020 Patient Is 6 para 4. She had 2 successful vaginal births then a delivery with her third child. She had a successful . She desires a repeat . TKRN Risks/benefits/alternatives discussed with patient regarding trial of labor and potential for uterine rupture. Risks include but are not limited to maternal hemorrhage, risk of injury to adjacent organs including potential hysterectomy. risks discussed as well, including potential for permanent neurologic injury or . Overall uterine rupture risk is less than 1% after one section. Is a trial of labor contraindicated for this patient? No If no, calculate rate of success using pre-labor factors: http://www.bs.[email or web address]/mfmu/vagbirth.html Predicted chance of vaginal after : 93% Patient's plan for delivery mode: Trial of labor if no other maternal/ indications for c/s. [facility] consent signed today Laura Hurley MD Quit smoking 10/12/2020 10/18/2020 Overview: 10/12/2020t quit smoking 2-1/2 months ago. She states that she is currently vaping nicotine. Discussed risks of smoking/vaping during and advised pt to continue not smoking.TKRN Patient request for diagnostic testing 10/12/2020 08/29/2022 Overview: 10/12/2020 Patient desires tubal ligation. Patient desires nuchal ultrasound. Considering genetic carrier screening testing.TKRN H/O section 09/06/2015 017 Overview: Planning - signed consent form Darcy Herrmann MD Performed for intolerance to labor. Baby transferred [facility] days. Was found to have pulmonary hypertension but recovered fine. Pt wants to Risks/benefits/alternatives discussed with patient regarding trial of labor and potential for uterine rupture. Risks include but are not limited to maternal hemorrhage, risk of injury to adjacent organs including potential hysterectomy. risks discussed as well, including potential for permanent neurologic injury or . Overall uterine rupture risk is less than 1% after one section. Is a trial of labor contraindicated for this patient? No If no, calculate rate of success using pre-labor factors: http://www[facility] [place]/mfmu/vagbirth.html Predicted chance of vaginal after : 82.7% Patient's plan for delivery mode: Trial of labor Vannesa Pearce DO Supervision of other normal 09/19/2014 07/31/2015 Overview: Girl on - [place] September 19, 2014 Seen on L&D 09/18/14 for N/V. Given IVF> Irreg. heart rate noted but tracing overall category 1. No decelerations. D/maddy home w/ kick counts and f/u this week for US w/ MFM. Laura Hurley MD complicated by ed or cervical conization, antepartum 05/06/2014 04/30/2016 Overview: 05/06/14: No Medical records were received that indicated she had CK[facility] done at [place]. Pap in 2007 that was received showed normal pap. High risk due to s moking in first trimester 04/25/2014 04/30/2016 Overview: Boy on - [facility] Supervision of normal 04/25/2014 06/22/2014 documented as of this encounter (statuses as of 02/25/2023) [facility]12[facility] History of Past illness Narrative* Problem Noted Date Diagnosed Date Resolved Date Anemia complicating pregnanc y, second trimester 03/08/2021 08/29/2022 Overview: 03/08/21- HGB 9.4. Oral iron started. Repeat CBC at 32 weeks gestation. Order placed. Margot Shell APRN.CN Encounter for sterilization 02/07/2021 08/29/2022 Overview: February 07, 2021 Risks, benefits and alternatives to sterilization have been discussed with the patient. She declines reversible options including LARC. She understands sterilization is permanent, irreversible, risks of failure, regret and ectopic. In addition she understands there are surgical risks as well. Her questions were answered to her satisfaction and consent was signed. Laura Hurley MD Dichorionic diamniotic twin in first trimester 10/18/2020 05/29/2021 Hx successful (vaginal after ), currently 10/12/2020 05/29/2021 Overview: 10/12/2020 Patient Is 4 para 4. She had 2 successful vaginal births then a delivery with her third child. She had a successful . She desires a repeat . TKRN Risks/benefits/alternatives discussed with patient regarding trial of labor and potential for uterine rupture. Risks include but are not limited to maternal hemorrhage, risk of injury to adjacent organs including potential hysterectomy. risks discussed as well, including potential for permanent neurologic injury or . Overall uterine rupture risk is less than 1% after one section. Is a trial of labor contraindicated for this patient? No If no, calculate rate of success using pre-labor factors: http://www.[email or web address]/mfmu/vagbirth.html Predicted chance of vaginal after : 93% Patient's plan for delivery mode: Trial of labor if no other maternal/ indications for c/s. [facility] consent signed today Laura Hurley MD Quit smoking 10/12/2020 10/18/2020 Overview: 10/12/2020t quit smoking 2-1/2 months ago. She states that she is currently vaping nicotine. Discussed risks of smoking/vaping during and advised pt to continue not smoking.TKRN Patient request for diagnostic testing 10/12/2020 08/29/2022 Overview: 10/12/2020 Patient desires tubal ligation. Patient desires nuchal ultrasound. Considering genetic carrier screening testing.TKRN H/O section 09/06/2015 017 Overview: Planning - signed consent form Darcy Herrmann MD Performed for intolerance to labor. Baby transferred to [facility] x 5 days. Was found to have pulmonary hypertension but recovered fine. Pt wants to Risks/benefits/alternatives discussed with patient regarding trial of labor and potential for uterine rupture. Risks include but are not limited to maternal hemorrhage, risk of injury to adjacent organs including potential hysterectomy. risks discussed as well, including potential for permanent neurologic injury or . Overall uterine rupture risk is less than 1% after one section. Is a trial of labor contraindicated for this patient? No If no, calculate rate of success using pre-labor factors: http://www.[email or web address]/mfmu/vagbirth.html Predicted chance of vaginal after : 82.7% Patient's plan for delivery mode: Trial of labor Vannesa Pearce DO Supervision of other normal 09/19/2014 07/31/2015 Overview: Girl on us- [place] September 19, 2014 Seen on L&D 09/18/14 for N/V. Given IVF> Irreg. heart rate noted but tracing overall category 1. No decelerations. D/maddy home w/ kick counts and f/u this week for US w/ MFM. Laura Hurley MD complicated by ed or cervical conization, antepartum 05/06/2014 04/30/2016 Overview: 05/06/14: No Medical records were received that indicated she had [facility] done at [place]. Pap in 2007 that was received showed normal pap. High risk due to s moking in first trimester 04/25/2014 04/30/2016 Overview: Boy on - [place] Supervision of normal 04/25/2014 06/22/2014 documented as of this encounter (statuses as of 06/27/2023) [facility] History of Past illness Narrative* Problem Noted Date Diagnosed Date Resolved Date Anemia complicating pregnanc y, second trimester 03/08/2021 08/29/2022 Overview: 03/08/21- HGB 9.4. Oral iron started. Repeat CBC at 32 weeks gestation. Order placed. Margot Shell, MANJINDER.CNM Encounter for sterilization 02/07/2021 08/29/2022 Overview: February 07, 2021 Risks, benefits and alternatives to sterilization have been discussed with the patient. She declines reversible options including LARC. She understands sterilization is permanent, irreversible, risks of failure, regret and ectopic. In addition she understands there are surgical risks as well. Her questions were answered to her satisfaction and consent was signed. Laura Hurley MD Dichorionic diamniotic twin in first trimester 10/18/2020 05/29/2021 Hx successful (vaginal after ), currently 10/12/2020 05/29/2021 Overview: 10/12/2020 Patient Is 6 para 4. She had 2 successful vaginal births then a delivery with her third child. She had a successful . She desires a repeat . TKRN Risks/benefits/alternatives discussed with patient regarding trial of labor and potential for uterine rupture. Risks include but are not limited to maternal hemorrhage, risk of injury to adjacent organs including potential hysterectomy. risks discussed as well, including potential for permanent neurologic injury or . Overall uterine rupture risk is less than 1% after one section. Is a trial of labor contraindicated for this patient? No If no, calculate rate of success using pre-labor factors: http://www[facility] [place] [place]/mfmu/vagbirth.html Predicted chance of vaginal after : 93% Patient's plan for delivery mode: Trial of labor if no other maternal/ indications for c/s. [facility] consent signed today Laura Hurley MD Quit smoking 10/12/2020 10/18/2020 Overview: 10/12/2020t quit smoking 2-1/2 months ago. She states that she is currently vaping nicotine. Discussed risks of smoking/vaping during and advised pt to continue not smoking.TKRN Patient request for diagnostic testing 10/12/2020 08/29/2022 Overview: 10/12/2020 Patient desires tubal ligation. Patient desires nuchal ultrasound. Considering genetic carrier screening testing.TKRN H/O section 09/06/2015 017 Overview: Planning - signed consent form Darcy Herrmann MD Performed for intolerance to labor. Baby transferred to [facility] x 5 days. Was found to have pulmonary hypertension but recovered fine. Pt wants to Risks/benefits/alternatives discussed with patient regarding trial of labor and potential for uterine rupture. Risks include but are not limited to maternal hemorrhage, risk of injury to adjacent organs including potential hysterectomy. risks discussed as well, including potential for permanent neurologic injury or . Overall uterine rupture risk is less than 1% after one section. Is a trial of labor contraindicated for this patient? No If no, calculate rate of success using pre-labor factors: http://www[facility]mfmu/vagbirth.html Predicted chance of vaginal after : 82.7% Patient's plan for delivery mode: Trial of labor Vannesa Pearce DO Supervision of other normal 09/19/2014 07/31/2015 Overview: Girl on us- [place] September 19, 2014 Seen on L&D 09/18/14 for N/V. Given IVF> Irreg. heart rate noted but tracing overall category 1. No decelerations. D/maddy home w/ kick counts and f/u this week for US w/ MFM. Laura Hurley MD complicated by ed or cervical conization, antepartum 05/06/2014 04/30/2016 Overview: 05/06/14: No Medical records were received that indicated she had [facility] done at [place]. Pap in 2007 that was received showed normal pap. High risk due to s moking in first trimester 04/25/2014 04/30/2016 Overview: [place] on - [place] Supervision of normal 04/25/2014 06/22/2014 documented as of this encounter (statuses as of 06/27/2023) [facility] History of Past illness Narrative* Problem Noted Date Resolved Date Dichorionic diamniotic twin in first t rimester 10/18/2020 05/29/2021 Hx successful (vaginal after ), currently 10/12/2020 05/29/2021 Overview: 10/12/2020 Patient Is 6 para 4. She had 2 successful vaginal births then a delivery with her third child. She had a successful . She desires a repeat . TKRN Risks/benefits/alternatives discussed with patient regarding trial of labor and potential for uterine rupture. Risks include but are not limited to maternal hemorrhage, risk of injury to adjacent organs including potential hysterectomy. risks discussed as well, including potential for permanent neurologic injury or . Overall uterine rupture risk is less than 1% after one section. Is a trial of labor contraindicated for this patient? No If no, calculate rate of success using pre-labor factors: http://www.[email or web address]/mfmu/vagbirth.html Predicted chance of vaginal after : 93% Patient's plan for delivery mode: Trial of labor if no other maternal/ indications for c/s. [facility] consent signed today Laura Hurley MD Quit smoking 10/12/2020 10/18/2020 Overview: 1Pt quit smoking 2-1/2 months ago. She states that she is currently vaping nicotine. Discussed risks of smoking/vaping during and advised pt to continue not smoking.TKRN H/O section 09/06/2015 04/30/2016 Overview: Planning - signed consent form Darcy Herrmann MD Performed for intolerance to labor. Baby transferred to [facility] 5 days. Was found to have pulmonary hypertension but recovered fine. Pt wants to Risks/benefits/alternatives discussed with patient regarding trial of labor and potential for uterine rupture. Risks include but are not limited to maternal hemorrhage, risk of injury to adjacent organs including potential hysterectomy. risks discussed as well, including potential for permanent neurologic injury or . Overall uterine rupture risk is less than 1% after one section. Is a trial of labor contraindicated for this patient? No If no, calculate rate of success using pre-labor factors: http://www.bs.[email or web address]/mfmu/vagbirth.html Predicted chance of vaginal after : 82.7% Patient's plan for delivery mode: Trial of labor Vannesa Pearce DO Supervision of other normal 09/19/2014 07/31/2015 Overview: Girl on - [place] September 19, 2014 Seen on L&D 09/18/14 for N/V. Given IVF> Irreg. heart rate noted but tracing overall category 1. No decelerations. D/maddy home w/ kick counts and f/u this week for US w/ MFM. Laura Hurley MD complicated by ed or cervical conization, antepartum 05/06/2014 04/30/2016 Overview: 05/06/14: No Medical records were received that indicated she had [facility] done at [place]. Pap in 2007 that was received showed normal pap. High risk due to smoking in first trim tj 04/25/2014 04/30/2016 Overview: Boy on - [facility] Supervision of normal 04/25/2014 06/22/2014 documented as of this encounter (statuses as of 08/13/2021) [facility] History of Past illness Narrative* Problem Noted Date Resolved Date Dichorionic diamniotic twin in first t rimester 10/18/2020 05/29/2021 Hx successful (vaginal after ), currently 10/12/2020 05/29/2021 Overview: 10/12/2020 Patient Is 6 para 4. She had 2 successful vaginal births then a delivery with her third child. She had a successful . She desires a repeat . TKRN Risks/benefits/alternatives discussed with patient regarding trial of labor and potential for uterine rupture. Risks include but are not limited to maternal hemorrhage, risk of injury to adjacent organs including potential hysterectomy. risks discussed as well, including potential for permanent neurologic injury or . Overall uterine rupture risk is less than 1% after one section. Is a trial of labor contraindicated for this patient? No If no, calculate rate of success using pre-labor factors: http://www.[email or web address]/mfmu/vagbirth.html Predicted chance of vaginal after : 93% Patient's plan for delivery mode: Trial of labor if no other maternal/ indications for c/s. [facility] consent signed today Laura Hurley MD Quit smoking 10/12/2020 10/18/2020 Overview: 10/12/2020t quit smoking 2-1/2 months ago. She states that she is currently vaping nicotine. Discussed risks of smoking/vaping during and advised pt to continue not smoking.TKRN H/O section 09/06/2015 04/30/2016 Overview: Planning - signed consent form Darcy Herrmann MD Performed for intolerance to labor. Baby transferred [facility]. Was found to have pulmonary hypertension but recovered fine. Pt wants to Risks/benefits/alternatives discussed with patient regarding trial of labor and potential for uterine rupture. Risks include but are not limited to maternal hemorrhage, risk of injury to adjacent organs including potential hysterectomy. risks discussed as well, including potential for permanent neurologic injury or . Overall uterine rupture risk is less than 1% after one section. Is a trial of labor contraindicated for this patient? No If no, calculate rate of success using pre-labor factors: http://www.[facility]/mfmu/vagbirth.html Predicted chance of vaginal after : 82.7% Patient's plan for delivery mode: Trial of labor Vannesa Pearce DO Supervision of other normal 09/19/2014 07/31/2015 Overview: Girl on us- wilmer September 19, 2014 Seen on L&D 09/18/14 for N/V. Given IVF> Irreg. heart rate noted but tracing overall category 1. No decelerations. D/maddy home w/ kick counts and f/u this week for US w/ MFM. Laura Hurley MD complicated by ed or cervical conization, antepartum 05/06/2014 04/30/2016 Overview: 05/06/14: No Medical records were received that indicated she had CKC done at [facility]. Pap in 2007 that was received showed normal pap. High risk due to smoking in first trim tj 04/25/2014 04/30/2016 Overview: Boy on - R[place] Supervision of normal 04/25/2014 06/22/2014 documented as of this encounter (statuses as of 09/25/2021) [facility] History of Past illness Narrative* Problem Noted Date Resolved Date Dichorionic diamniotic twin in first t rimester 10/18/2020 05/29/2021 Hx successful (vaginal after ), currently 10/12/2020 05/29/2021 Overview: 10/12/2020 Patient Is 4 para 4. She had 2 successful vaginal births then a delivery with her third child. She had a successful . She desires a repeat . TKRN Risks/benefits/alternatives discussed with patient regarding trial of labor and potential for uterine rupture. Risks include but are not limited to maternal hemorrhage, risk of injury to adjacent organs including potential hysterectomy. risks discussed as well, including potential for permanent neurologic injury or . Overall uterine rupture risk is less than 1% after one section. Is a trial of labor contraindicated for this patient? No If no, calculate rate of success using pre-labor factors: http://www.[facility]/vagbirth.html Predicted chance of vaginal after : 93% Patient's plan for delivery mode: Trial of labor if no other maternal/ indications for c/s. [facility] consent signed today Laura Hurley MD Quit smoking 10/12/2020 10/18/2020 Overview: 10/12/2020t quit smoking 2-1/2 months ago. She states that she is currently vaping nicotine. Discussed risks of smoking/vaping during and advised pt to continue not smoking.TKRN H/O section 09/06/2015 04/30/2016 Overview: Planning - signed consent form Darcy Herrmann MD Performed for intolerance to labor. Baby transferred to [facility] x 5 days. Was found to have pulmonary hypertension but recovered fine. Pt wants to Risks/benefits/alternatives discussed with patient regarding trial of labor and potential for uterine rupture. Risks include but are not limited to maternal hemorrhage, risk of injury to adjacent organs including potential hysterectomy. risks discussed as well, including potential for permanent neurologic injury or . Overall uterine rupture risk is less than 1% after one section. Is a trial of labor contraindicated for this patient? No If no, calculate rate of success using pre-labor factors: http://www.[facility]/mf/vagbirth.html Predicted chance of vaginal after : 82.7% Patient's plan for delivery mode: Trial of labor Vannesa Pearce, Supervision of other normal 09/19/2014 07/31/2015 Overview: Girl on us- wilmer September 19, 2014 Seen on L&D 09/18/14 for N/V. Given IVF> Irreg. heart rate noted but tracing overall category 1. No decelerations. D/maddy home w/ kick counts and f/u this week for US w/ MFM. Laura Hurley MD complicated by ed or cervical conization, antepartum 05/06/2014 04/30/2016 Overview: 05/06/14: No Medical records were received that indicated she had CKC done at [facility]. Pap in 2007 that was received showed normal pap. High risk due to smoking in first trim tj 04/25/2014 04/30/2016 Overview: Boy on - R[place] Supervision of normal 04/25/2014 06/22/2014 documented as of this encounter (statuses as of 09/25/2021) [facility] History of Past illness Narrative* Problem Noted Date Resolved Date Dichorionic diamniotic twin in first t rimester 10/18/2020 05/29/2021 Hx successful (vaginal after ), currently 10/12/2020 05/29/2021 Overview: 10/12/2020 Patient Is 4 para 4. She had 2 successful vaginal births then a delivery with her third child. She had a successful . She desires a repeat . TKRN Risks/benefits/alternatives discussed with patient regarding trial of labor and potential for uterine rupture. Risks include but are not limited to maternal hemorrhage, risk of injury to adjacent organs including potential hysterectomy. risks discussed as well, including potential for permanent neurologic injury or . Overall uterine rupture risk is less than 1% after one section. Is a trial of labor contraindicated for this patient? No If no, calculate rate of success using pre-labor factors: http://www.[email or web address]/mfmu/vagbirth.html Predicted chance of vaginal after : 93% Patient's plan for delivery mode: Trial of labor if no other maternal/ indications for c/s. [facility] consent signed today Laura Hurley MD Quit smoking 10/12/2020 10/18/2020 Overview: 1Pt quit smoking 2-1/2 months ago. She states that she is currently vaping nicotine. Discussed risks of smoking/vaping during and advised pt to continue not smoking.TKRN H/O section 09/06/2015 04/30/2016 Overview: Planning - signed consent form Darcy Herrmann MD Performed for intolerance to labor. Baby transferred to [facility] 5 days. Was found to have pulmonary hypertension but recovered fine. Pt wants to Risks/benefits/alternatives discussed with patient regarding trial of labor and potential for uterine rupture. Risks include but are not limited to maternal hemorrhage, risk of injury to adjacent organs including potential hysterectomy. risks discussed as well, including potential for permanent neurologic injury or . Overall uterine rupture risk is less than 1% after one section. Is a trial of labor contraindicated for this patient? No If no, calculate rate of success using pre-labor factors: http://www.[email or web address]/mfmu/vagbirth.html Predicted chance of vaginal after : 82.7% Patient's plan for delivery mode: Trial of labor Vannesa Pearce DO Supervision of other normal 09/19/2014 07/31/2015 Overview: Girl on - wilmer September 19, 2014 Seen on L&D 09/18/14 for N/V. Given IVF> Irreg. heart rate noted but tracing overall category 1. No decelerations. D/maddy home w/ kick counts and f/u this week for US w/ MFM. Laura Hurley MD complicated by ed or cervical conization, antepartum 05/06/2014 04/30/2016 Overview: 05/06/14: No Medical records were received that indicated she had CKC done at [facility]. Pap in 2007 that was received showed normal pap. High risk due to smoking in first trim tj 04/25/2014 04/30/2016 Overview: Boy on - [place]ays Supervision of normal 04/25/2014 06/22/2014 documented as of this encounter (statuses as of 09/25/2021) [facility] History of Past illness Narrative* Problem Noted Date Resolved Date Dichorionic diamniotic twin in first t rimester 10/18/2020 05/29/2021 Hx successful (vaginal after ), currently 10/12/2020 05/29/2021 Overview: 10/12/2020 Patient Is 4 para 4. She had 2 successful vaginal births then a delivery with her third child. She had a successful . She desires a repeat . TKRN Risks/benefits/alternatives discussed with patient regarding trial of labor and potential for uterine rupture. Risks include but are not limited to maternal hemorrhage, risk of injury to adjacent organs including potential hysterectomy. risks discussed as well, including potential for permanent neurologic injury or . Overall uterine rupture risk is less than 1% after one section. Is a trial of labor contraindicated for this patient? No If no, calculate rate of success using pre-labor factors: http://www.[email or web address]/mfmu/vagbirth.html Predicted chance of vaginal after : 93% Patient's plan for delivery mode: Trial of labor if no other maternal/ indications for c/s. [facility] consent signed today Laura Hurley MD Quit smoking 10/12/2020 10/18/2020 Overview: 10/12/2020t quit smoking 2-1/2 months ago. She states that she is currently vaping nicotine. Discussed risks of smoking/vaping during and advised pt to continue not smoking.TKRN H/O section 09/06/2015 04/30/2016 Overview: Planning - signed consent form Darcy Herrmann MD Performed for intolerance to labor. Baby transferred to [facility] x 5 days. Was found to have pulmonary hypertension but recovered fine. Pt wants to Risks/benefits/alternatives discussed with patient regarding trial of labor and potential for uterine rupture. Risks include but are not limited to maternal hemorrhage, risk of injury to adjacent organs including potential hysterectomy. risks discussed as well, including potential for permanent neurologic injury or . Overall uterine rupture risk is less than 1% after one section. Is a trial of labor contraindicated for this patient? No If no, calculate rate of success using pre-labor factors: http://www.bs[email or web address]/mfmu/vagbirth.html Predicted chance of vaginal after : 82.7% Patient's plan for delivery mode: Trial of labor Vannesa Pearce DO Supervision of other normal 09/19/2014 07/31/2015 Overview: Girl on - wilmer September 19, 2014 Seen on L&D 09/18/14 for N/V. Given IVF> Irreg. heart rate noted but tracing overall category 1. No decelerations. D/maddy home w/ kick counts and f/u this week for US w/ MFM. Laura Hurley MD complicated by ed or cervical conization, antepartum 05/06/2014 04/30/2016 Overview: 05/06/14: No Medical records were received that indicated she had CKC done at [place]. Pap in 2007 that was received showed normal pap. High risk due to smoking in first trim tj 04/25/2014 04/30/2016 Overview: Boy on - [place] Supervision of normal 04/25/2014 06/22/2014 documented as of this encounter (statuses as of 09/25/2021) [facility] History of Past illness Narrative* Problem Noted Date Resolved Date Dichorionic diamniotic twin in first t rimester 10/18/2020 05/29/2021 Hx successful (vaginal after ), currently 10/12/2020 05/29/2021 Overview: 10/12/2020 Patient Is 4 para 4. She had 2 successful vaginal births then a delivery with her third child. She had a successful . She desires a repeat . TKRN Risks/benefits/alternatives discussed with patient regarding trial of labor and potential for uterine rupture. Risks include but are not limited to maternal hemorrhage, risk of injury to adjacent organs including potential hysterectomy. risks discussed as well, including potential for permanent neurologic injury or . Overall uterine rupture risk is less than 1% after one section. Is a trial of labor contraindicated for this patient? No If no, calculate rate of success using pre-labor factors: http://www.[facility]/mu/vagbirth.html Predicted chance of vaginal after : 93% Patient's plan for delivery mode: Trial of labor if no other maternal/ indications for c/s. [facility] consent signed today Laura Hurley MD Quit smoking 10/12/2020 10/18/2020 Overview: 10/12/2020t quit smoking 2-1/2 months ago. She states that she is currently vaping nicotine. Discussed risks of smoking/vaping during and advised pt to continue not smoking.TKRN H/O section 09/06/2015 04/30/2016 Overview: Planning - signed consent form Darcy Herrmann MD Performed for intolerance to labor. Baby transferred to [facility] x 5 days. Was found to have pulmonary hypertension but recovered fine. Pt wants to Risks/benefits/alternatives discussed with patient regarding trial of labor and potential for uterine rupture. Risks include but are not limited to maternal hemorrhage, risk of injury to adjacent organs including potential hysterectomy. risks discussed as well, including potential for permanent neurologic injury or . Overall uterine rupture risk is less than 1% after one section. Is a trial of labor contraindicated for this patient? No If no, calculate rate of success using pre-labor factors: http://www.[facility]/mfmu/vagbirth.html Predicted chance of vaginal after : 82.7% Patient's plan for delivery mode: Trial of labor Vannesa Pearce DO Supervision of other normal 09/19/2014 07/31/2015 Overview: Girl on us- wilmer September 19, 2014 Seen on L&D 09/18/14 for N/V. Given IVF> Irreg. heart rate noted but tracing overall category 1. No decelerations. D/maddy home w/ kick counts and f/u this week for US w/ MFM. Laura Hurley MD complicated by ed or cervical conization, antepartum 05/06/2014 04/30/2016 Overview: 05/06/14: No Medical records were received that indicated she had CKC done at [place]. Pap in 2007 that was received showed normal pap. High risk due to smoking in first trim tj 04/25/2014 04/30/2016 Overview: Boy on - [place] Supervision of normal 04/25/2014 06/22/2014 documented as of this encounter (statuses as of 01/23/2022) [facility] History of Past illness Narrative* Problem Noted Date Resolved Date Dichorionic diamniotic twin in first t rimester 10/18/2020 05/29/2021 Hx successful (vaginal after ), currently 10/12/2020 05/29/2021 Overview: 10/12/2020 Patient Is 4 para 4. She had 2 successful vaginal births then a delivery with her third child. She had a successful . She desires a repeat . TKRN Risks/benefits/alternatives discussed with patient regarding trial of labor and potential for uterine rupture. Risks include but are not limited to maternal hemorrhage, risk of injury to adjacent organs including potential hysterectomy. risks discussed as well, including potential for permanent neurologic injury or . Overall uterine rupture risk is less than 1% after one section. Is a trial of labor contraindicated for this patient? No If no, calculate rate of success using pre-labor factors: http://www.[email or web address]/mfmu/vagbirth.html Predicted chance of vaginal after : 93% Patient's plan for delivery mode: Trial of labor if no other maternal/ indications for c/s. [facility] consent signed today Laura Hurley MD Quit smoking 10/12/2020 10/18/2020 Overview: 1Pt quit smoking 2-1/2 months ago. She states that she is currently vaping nicotine. Discussed risks of smoking/vaping during and advised pt to continue not smoking.TKRN H/O section 09/06/2015 04/30/2016 Overview: Planning - signed consent form Darcy Herrmann MD Performed for intolerance to labor. Baby transferred to [facility] 5 days. Was found to have pulmonary hypertension but recovered fine. Pt wants to Risks/benefits/alternatives discussed with patient regarding trial of labor and potential for uterine rupture. Risks include but are not limited to maternal hemorrhage, risk of injury to adjacent organs including potential hysterectomy. risks discussed as well, including potential for permanent neurologic injury or . Overall uterine rupture risk is less than 1% after one section. Is a trial of labor contraindicated for this patient? No If no, calculate rate of success using pre-labor factors: http://www.bs.[email or web address]/mfmu/vagbirth.html Predicted chance of vaginal after : 82.7% Patient's plan for delivery mode: Trial of labor Vannesa Pearce DO Supervision of other normal 09/19/2014 07/31/2015 Overview: Girl on us- wilmer September 19, 2014 Seen on L&D 09/18/14 for N/V. Given IVF> Irreg. heart rate noted but tracing overall category 1. No decelerations. D/maddy home w/ kick counts and f/u this week for US w/ MFM. Laura Hurley MD complicated by ed or cervical conization, antepartum 05/06/2014 04/30/2016 Overview: 05/06/14: No Medical records were received that indicated she had CKC done at [place]. Pap in 2007 that was received showed normal pap. High risk due to smoking in first trim tj 04/25/2014 04/30/2016 Overview: Boy on us- [place] Supervision of normal 04/25/2014 06/22/2014 documented as of this encounter (statuses as of 02/01/2022) [facility] History of Past illness Narrative* Problem Noted Date Resolved Date Dichorionic diamniotic twin in first t rimester 10/18/2020 05/29/2021 Hx successful (vaginal after ), currently 10/12/2020 05/29/2021 Overview: 10/12/2020 Patient Is 4 para 4. She had 2 successful vaginal births then a delivery with her third child. She had a successful . She desires a repeat . TKRN Risks/benefits/alternatives discussed with patient regarding trial of labor and potential for uterine rupture. Risks include but are not limited to maternal hemorrhage, risk of injury to adjacent organs including potential hysterectomy. risks discussed as well, including potential for permanent neurologic injury or . Overall uterine rupture risk is less than 1% after one section. Is a trial of labor contraindicated for this patient? No If no, calculate rate of success using pre-labor factors: http://www.[email or web address]/mfmu/vagbirth.html Predicted chance of vaginal after : 93% Patient's plan for delivery mode: Trial of labor if no other maternal/ indications for c/s. [facility] consent signed today Laura Hurley MD Quit smoking 10/12/2020 10/18/2020 Overview: 10/12/2020t quit smoking 2-1/2 months ago. She states that she is currently vaping nicotine. Discussed risks of smoking/vaping during and advised pt to continue not smoking.TKRN H/O section 09/06/2015 04/30/2016 Overview: Planning - signed consent form Darcy Herrmann MD Performed for intolerance to labor. Baby transferred to [facility] x 5 days. Was found to have pulmonary hypertension but recovered fine. Pt wants to Risks/benefits/alternatives discussed with patient regarding trial of labor and potential for uterine rupture. Risks include but are not limited to maternal hemorrhage, risk of injury to adjacent organs including potential hysterectomy. risks discussed as well, including potential for permanent neurologic injury or . Overall uterine rupture risk is less than 1% after one section. Is a trial of labor contraindicated for this patient? No If no, calculate rate of success using pre-labor factors: http://www.bs.[email or web address]/mfmu/vagbirth.html Predicted chance of vaginal after : 82.7% Patient's plan for delivery mode: Trial of labor Vannesa Pearce DO Supervision of other normal 09/19/2014 07/31/2015 Overview: Girl on us- wilmer September 19, 2014 Seen on L&D 09/18/14 for N/V. Given IVF> Irreg. heart rate noted but tracing overall category 1. No decelerations. D/maddy home w/ kick counts and f/u this week for US w/ MFM. Laura Hurley MD complicated by ed or cervical conization, antepartum 05/06/2014 04/30/2016 Overview: 05/06/14: No Medical records were received that indicated she had CKC done at [place]. Pap in 2007 that was received showed normal pap. High risk due to smoking in first trim tj 04/25/2014 04/30/2016 Overview: Boy on us- [place] Supervision of normal 04/25/2014 06/22/2014 documented as of this encounter (statuses as of 08/25/2022) [facility] Miscellaneous Notes* Telephone Encounter - Dulce Hanks LPN - 09/12/2015 1:39 PM EDT Patient is 12w6d [facility]* Diagnosis Onset Date Resolution Status COVID-19 resolved Twin resolved Sterilization acute [facility] Work Phone: Evaluation note* Diagnosis Onset Date Resolution Status Sterilization acute Sterilization acute [facility] Work Phone: Evaluation note* Diagnosis Encounter for sterilization- Primary Sterilization [facility] [place] [facility]* Diagnosis Rib pain- Primary Chest pain, unspecified Medical condition not demonstrated Person with feared complaint in whom no diagnosis was made documented in this encounter [facility] note* Diagnosis LUQ pain- Primary Abdominal pain, left upper quadrant Rib pain Chest pain, unspecified [facility] [place] [facility]* Diagnosis Acute otitis media, right- Primary Unspecified otitis media Irritation of right eye Other ill-defined disorder of eye [facility] [place] [facility]* Diagnosis Onset Date Resolution Status RUQ pain noneactive History of drug use noneacti ve COVID-19 vaccination declined noneactive Establishing care with new doctor, encounter for noneactive Fatigue noneactive Enlarged thyroid noneactive Electronic cigarette use non eactive Headache noneactive [facility] Work Phone: Evaluation note* Diagnosis Encounter for IUD removal- Primary Encounter for removal of intrauterine contraceptive device Encounter for IUD insertion Encounter for insertion of intrauterine contraceptive device Abnormal uterine bleeding (AUB) [facility] [place] [facility]* Diagnosis Encounter for IUD insertion- Primary Encounter for insertion of intrauterine contraceptive device Encounter for IUD removal and reinsertion Encounter for removal and reinsertion of intrauterine contraceptive device [facility] this encounter [facility] [place] [facility]* Diagnosis Rib pain Chest pain, unspecified LUQ pain Abdominal pain, left upper quadrant [facility] [place] [facility]* Diagnosis Sore throat- Primary Acute pharyngitis Strep throat Streptococcal sore throat [facility] [place] [facility]* Diagnosis Pain Generalized pain [facility] [place] [facility]* Diagnosis Posterior tibial tendon dysfunction- Primary Other disorders of synovium, tendon, and bursa Tarsal coalition of right foot [facility] [place] [facility]* Diagnosis Eustachian tube dysfunction, bilateral- Primary [facility] [place] [facility]* Diagnosis Rib pain Chest pain, unspecified [facility] Diagnosis Pain of left eye- Primary Pain in or around eye documented [facility] this encounter [facility] noteNo assessment information [facility]Or[facility]opa[facility] Work Phone: [facility] for referral (narrative)* Outpatient Procedure (Routine) - Pending Review Specialty Diagnoses / Procedures Referred By Adrian story Referred To Contact [facility] Diagnoses Encounter for IUD insertion Procedures INSERT INTRAUTERINE DEVICE LEVONORGESTREL IU 52MG 5 YR INSERT INTRAUTERINE DEVICE Laura Hurley MD [address] [place] [address] [address] Referral ID Status Reason Start Date Expiration Date Visits Requested Visits Authorized [id number] Pending Review Auto-Generat ed Referral 11/11/2022 11/11/2023 1 1 * Outpatient Procedure (Routine) - Pending Review Specialty Diagnoses / Procedures Referred By Adrian story Referred To Contact [facility] Diagnoses Encounter for IUD removal Procedures REMOVE INTRAUTERINE DEVICE REMOVE INTRAUTERINE DEVICE Laura Hurley MD [address] [place] [address] [id number] Referral ID Status Reason Start Date Expiration Date Visits Requested Visits Authorized [id number] Pending Review Auto-Generat ed Referral 11/11/2022 11/11/2023 1 1 [facility] for referral (narrative)* Diagnostic Procedure Only (Urgent) - Closed Specialty Diagnoses / Procedures Referred By Adrian story Referred To Contact XR IMAGING Diagnoses Rib pain Procedures XR RIBS/CHEST 3V AP RIB/OBLS/CXR LEFT RADEX RIBS UNI W/POSTEROANT CH MINIMUM 3 VIEWS Yvonne Bess, MANJINDER.PORTAL DEVELOPER [address] [place] [address] Xr Imaging [facility] Referral ID Status Reason Start Date Expiration Date V isits Requested Visits Authorized [id number] Closed Auto-Generate d Referral 01/23/2022 02/22/2023 1 1 [facility] for referral (narrative)No reason for referral information [facility]: [facility] Narrative* Diagnostic Procedure Only (Routine) - Closed Specialty Diagnoses / Procedures Referred By Contac t Referred To Contact XR IMAGING Diagnoses Pain Procedures XR FOOT GENERAL 3V AP/LAT/OBL RIGHT RADEX FOOT COMPLETE MINIMUM 3 VIEWS Gustavo Vidal [address] [place] [address] [place] [address] Referral ID Status Reason Start Date Expiration Date V isits Requested Visits Authorized [id number] Closed Auto-Generate d Referral 05/30/2023 06/28/2024 1 1 [facility] for visit Narrative* Diagnostic Procedure Only (Urgent) - Closed Specialty Diagnoses / Procedures Referred By Contac t Referred To Contact XR IMAGING Diagnoses Rib pain Procedures XR RIBS/CHEST 3V AP RIB/OBLS/CXR LEFT RADEX RIBS UNI W/POSTEROANT CH MINIMUM 3 VIEWS Yvonne Bess APRN.CNP [address] [place] [address] [place] [address] Referral ID Status Reason Start Date Expiration Date V isits Requested Visits Authorized [id number] Closed Auto-Generate d Referral 01/23/2022 02/22/2023 1 1 [facility] Summary Purpose Family History No Family History Records Found Relationship Condition Age at Onset Recorded Date/T sujey mother Migraine headache Unknown Hypertension Unknown grandfather Malignant neoplasm of prostate Unknown Cerebrovascular accident (CVA) Unknown grandmother Malignant neoplasm of skin Unknown Malignant neoplasm of breast Unknown brother Bipolar disorder Unknown Advance Directives No Advanced Directives Records Found Advance Directive Response Recorded Date/ Time Advance Directives No February 10:28pm Living Will No June 15, 2021 10:56am Power of Computer Forensic Specialist No June 15 10:56am Advance Directive Response Recorded Date/ Time Advance Directives No February 10:28pm Living Will No September 13, 2021 9:52am Power of Computer Forensic Specialist No September 13 9:52am Advance Directive Response Recorded Date/ Time Advance Directives No February 10:28pm Chief Complaint and Reason for Visit Chief Complaint COVID POS R/O LABOR RUPTURED MEMBRANES/LABOR/TWINS LAP BILAT SALPINGECTOMY Reason for Visit COVID-19 Twin Sterilization Chief Complaint LAP BILAT SALPINGECT FÉLIX LAP BILAT SALPING Reason for Visit Sterilization Sterilization 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 ABD PAIN, ENLARGE THYROID Reason for Visit RUQ pain History of drug use COVID-19 vaccination declined Establishing care with new doctor, encounter for Fatigue Enlarged thyroid Electronic cigarette use Headache Chief Complaint Admit Date ACUTE BOWEL ISSUES, LOOSE STOOLS November 04, 2024 11:26am Health Concerns Infection Onset Date Last Indicated Resolved Time COVID-19 Rule-Out 07/21/2020 07/21/2020 07/22/2020 8:33 AM EDT COVID-19 Confirmed 07/21/2020 07/21/2020 1 8:53 PM EDT COVID-19 Rule-Out 02/27/2021 02/27/2021 02/28/2021 12:20 PM EST COVID-19 Rule-Out 04/01/2021 04/01/2021 04/02/2021 4:03 AM EST COVID-19 Confirmed 04/01/2021 04/01/2021 2 8:52 PM EST Infection Onset Date Last Indicated Resolved Time COVID-19 Confirmed 04/01/2021 04/01/2021 2 8:52 PM EST Infection Onset Date Last Indicated Resolved Time COVID-19 Rule-Out 02/27/2021 02/27/2021 02/28/2021 12:20 PM EST COVID-19 Rule-Out 04/01/2021 04/01/2021 04/02/2021 4:03 AM EST COVID-19 Confirmed 04/01/2021 04/01/2021 2 8:52 PM EST Reason for Referral Specialty Diagnoses / Procedures Referred By Contromeo t Referred To Contact General Surgery Diagnoses Rib pain Medical condition not demonstrated Procedures CONSULT TO GENERAL SURGERY OFFICE/OUTPATIENT NEW HIGH MDM 60-74 MINUTES Yvonne Bess APRN.PORTAL DEVELOPER [address] [place] [address] Referral ID Status Reason Start Date Expiration Date Visits Requested Visits Authorized [id number] Authorized PCP Requested Referral 01/23/2022 01/23/2023 1 1 Specialty Diagnoses / Procedures Referred By Contac t Referred To Contact XR IMAGING Diagnoses Rib pain Procedures XR RIBS/CHEST 3V AP RIB/OBLS/CXR LEFT RADEX RIBS UNI W/POSTEROANT CH MINIMUM 3 VIEWS Yvonne Bess APRN.PORTAL DEVELOPER [address] [place] [address] Xr Imaging Referral ID Status Reason Start Date Expiration Date V isits Requested Visits Authorized [id number] Closed Auto-Generate d Referral 01/23/2022 02/22/2023 1 1 Specialty Diagnoses / Procedures Referred By Contac t Referred To Contact CT IMAGING Diagnoses Rib pain LUQ pain Procedures CT ABD/PEL W IVCON CT ABD & PELVIS W/CONTRAST Ronny Monet MD [address] [place] [address] [place] [address] Referral ID Status Reason Start Date Expiration Date V isits Requested Visits Authorized [id number] Closed Auto-Generate d Referral 01/25/2022 03/11/2022 1 1 Medications Administered Section Inactive Administered Medications - up to 3 most recent administrations Medication Order MAR Action Action Date Dose Rate Site levonorgestrel 21 mcg/24 hours (8 yrs) 52 mg 1 Each intrauterine device (MIRENA) 1 Each, INTRAUTERINE, ONCE (UP TO 30 DAYS AMB), 1 dose, On 12/16/22 at 1600, Hazardous Potential Reproductive Risk Drug: Use appropriate PPE. Given 12/16/2022 3:49 PM EDT 1 Each Additional Source Comments INFORMATION SOURCE (unrecogn ized section and content) DATE CREATED AUTHOR 03/07/2018 [facility] DATE CREATED AUTHOR AUTHOR'S ORGANIZ ATION 05/11/2018 [facility] DATE CREATED AUTHOR AUTHOR'S ORGANIZ ATION 06/22/2019 [facility] DATE CREATED AUTHOR AUTHOR'S ORGANIZ ATION 02/02/2024 [facility] DATE CREATED AUTHOR AUTHOR'S ORGANIZ ATION 11/09/2024 [facility] Goals (unrecognized section and content) Goals may be documented in a n alternate sectionGoals may be documented in an alternate sectionGoals may be documented in an alternate section Source Comments (unrecognize d section and content) In the event this informatio n is protected by the Federal Confidentiality of Alcohol and Drug Abuse Patient Records regulations: The Federal rules restrict any use of the information to criminally investigate or prosecute any alcohol or drug abuse patient.[facility] the event this information is protected by the Federal Confidentiality of Alcohol and Drug Abuse Patient Records regulations: The Federal rules restrict any use of the information to criminally investigate or prosecute any alcohol or drug abuse patient.[facility] the event this information is protected by the Federal Confidentiality of Alcohol and Drug Abuse Patient Records regulations: The Federal rules restrict any use of the information to criminally investigate or prosecute any alcohol or drug abuse patient.[facility] the event this information is protected by the Federal Confidentiality of Alcohol and Drug Abuse Patient Records regulations: The Federal rules restrict any use of the information to criminally investigate or prosecute any alcohol or drug abuse patient.[facility] the event this information is protected by the Federal Confidentiality of Alcohol and Drug Abuse Patient Records regulations: The Federal rules restrict any use of the information to criminally investigate or prosecute any alcohol or drug abuse patient.[facility] the event this information is protected by the Federal Confidentiality of Alcohol and Drug Abuse Patient Records regulations: The Federal rules restrict any use of the information to criminally investigate or prosecute any alcohol or drug abuse patient.[facility] the event this information is protected by the Federal Confidentiality of Alcohol and Drug Abuse Patient Records regulations: The Federal rules restrict any use of the information to criminally investigate or prosecute any alcohol or drug abuse patient.[facility] the event this information is protected by the Federal Confidentiality of Alcohol and Drug Abuse Patient Records regulations: The Federal rules restrict any use of the information to criminally investigate or prosecute any alcohol or drug abuse patient.[facility] the event this information is protected by the Federal Confidentiality of Alcohol and Drug Abuse Patient Records regulations: The Federal rules restrict any use of the information to criminally investigate or prosecute any alcohol or drug abuse patient.[facility] the event this information is protected by the Federal Confidentiality of Alcohol and Drug Abuse Patient Records regulations: The Federal rules restrict any use of the information to criminally investigate or prosecute any alcohol or drug abuse patient.[facility] the event this information is protected by the Federal Confidentiality of Alcohol and Drug Abuse Patient Records regulations: The Federal rules restrict any use of the information to criminally investigate or prosecute any alcohol or drug abuse patient.[facility] the event this information is protected by the Federal Confidentiality of Alcohol and Drug Abuse Patient Records regulations: The Federal rules restrict any use of the information to criminally investigate or prosecute any alcohol or drug abuse patient.[facility] the event this information is protected by the Federal Confidentiality of Alcohol and Drug Abuse Patient Records regulations: The Federal rules restrict any use of the information to criminally investigate or prosecute any alcohol or drug abuse patient.[facility] the event this information is protected by the Federal Confidentiality of Alcohol and Drug Abuse Patient Records regulations: The Federal rules restrict any use of the information to criminally investigate or prosecute any alcohol or drug abuse patient.[facility] Hospital[facility] the event this information is protected by the Federal Confidentiality of Alcohol and Drug Abuse Patient Records regulations: The Federal rules restrict any use of the information to criminally investigate or prosecute any alcohol or drug abuse patient.[facility] HospitalIn the event this information is protected by the Federal Confidentiality of Alcohol and Drug Abuse Patient Records regulations: The Federal rules restrict any use of the information to criminally investigate or prosecute any alcohol or drug abuse patient.[facility] HospitalIn the event this information is protected by the Federal Confidentiality of Alcohol and Drug Abuse Patient Records regulations: The Federal rules restrict any use of the information to criminally investigate or prosecute any alcohol or drug abuse patient.[facility] HospitalIn the event this information is protected by the Federal Confidentiality of Alcohol and Drug Abuse Patient Records regulations: The Federal rules restrict any use of the information to criminally investigate or prosecute any alcohol or drug abuse patient.[facility] HospitalIn the event this information is protected by the Federal Confidentiality of Alcohol and Drug Abuse Patient Records regulations: The Federal rules restrict any use of the information to criminally investigate or prosecute any alcohol or drug abuse patient.[facility] HospitalIn the event this information is protected by the Federal Confidentiality of Alcohol and Drug Abuse Patient Records regulations: The Federal rules restrict any use of the information to criminally investigate or prosecute any alcohol or drug abuse patient.[facility] HospitalIn the event this information is protected by the Federal Confidentiality of Alcohol and Drug Abuse Patient Records regulations: The Federal rules restrict any use of the information to criminally investigate or prosecute any alcohol or drug abuse patient.[facility] HospitalIn the event this information is protected by the Federal Confidentiality of Alcohol and Drug Abuse Patient Records regulations: The Federal rules restrict any use of the information to criminally investigate or prosecute any alcohol or drug abuse patient.[facility] HospitalIn the event this information is protected by the Federal Confidentiality of Alcohol and Drug Abuse Patient Records regulations: The Federal rules restrict any use of the information to criminally investigate or prosecute any alcohol or drug abuse patient.[facility] HospitalIn the event this information is protected by the Federal Confidentiality of Alcohol and Drug Abuse Patient Records regulations: The Federal rules restrict any use of the information to criminally investigate or prosecute any alcohol or drug abuse patient.[facility] HospitalIn the event this information is protected by the Federal Confidentiality of Alcohol and Drug Abuse Patient Records regulations: The Federal rules restrict any use of the information to criminally investigate or prosecute any alcohol or drug abuse patient.[facility] HospitalIn the event this information is protected by the Federal Confidentiality of Alcohol and Drug Abuse Patient Records regulations: The Federal rules restrict any use of the information to criminally investigate or prosecute any alcohol or drug abuse patient.[facility] HospitalIn the event this information is protected by the Federal Confidentiality of Alcohol and Drug Abuse Patient Records regulations: The Federal rules restrict any use of the information to criminally investigate or prosecute any alcohol or drug abuse patient.[facility] HospitalIn the event this information is protected by the Federal Confidentiality of Alcohol and Drug Abuse Patient Records regulations: The Federal rules restrict any use of the information to criminally investigate or prosecute any alcohol or drug abuse patient.[facility] HospitalIn the event this information is protected by the Federal Confidentiality of Alcohol and Drug Abuse Patient Records regulations: The Federal rules restrict any use of the information to criminally investigate or prosecute any alcohol or drug abuse patient.[facility] Reason for Visit (unrecogniz ed section and content) Reason Comments Schedule Surgery Reason Comments Pain Pain under left rib, feels a bulge when standing and bending x 3 weeks Reason Comments Follow Up CT Scan abdomen/pelv is Reason Comments Conjunctivitis Right eye redness x 3 days Reason Comments Irregular Menstrual Cycle Tubal and IUD Reason Onset Date Comments Insertion Of IUD 12/16/2022 IUD Removal Specialty Diagnoses / Procedures Referred By Adrian story Referred To 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 Diagnoses Irregular bleeding Encounter for insertion of intrauterine contraceptive device Encounter for removal of intrauterine contraceptive device Procedures INSERT INTRAUTERINE DEVICE REMOVE INTRAUTERINE DEVICE LEVONORGESTREL IU 52MG 5 YR Self Laura Hurley MD [address] [place] [address] Referral ID Status Reason Start Date Expiration Date V isits Requested Visits Authorized [id number] Authorized 12/04/2022 03/23/2023 [address] Specialty Diagnoses / Procedures Referred By Adrian t Referred To Contact CT IMAGING Diagnoses Rib pain LUQ pain Procedures CT ABD/PEL W IVCON CT ABD & PELVIS W/CONTRAST Ronny Monet MD [address] [place] [address] [place] [address] Referral ID Status Reason Start Date Expiration Date V isits Requested Visits Authorized [id number] Closed Auto-Generate d Referral 01/25/2022 03/11/2022 1 1 Reason Comments Sore Throat fever, bodyaches and congestion x 2 days Reason Comments New Pain Reason Comments Sinus Problem Congestion, drainage , bilateral ear pain x 1 week Reason Comments Eye Problem L eye redness and ir ritation x1 day Care Teams (unrecognized sec tion and content) Book Author Relationship Specialty Start Date End Date Luisito Landry [address] [place] [phone] PCP - General 09/08/02 02/26/21 Book Author Relationship Specialty Start Date End Date Luisito Landry [address] [place] [phone] PCP - General 09/08/02 02/26/21 Book Author Relationship Specialty Start Date End Date Luisito Landry [address] [place] [phone] PCP - General 09/08/02 02/26/21 Book Author Relationship Specialty Start Date End Date Luisito Landry [address] [place] [phone] PCP - General 09/08/02 02/26/21 Team Status: Active Member Role Status Dates No Primary Care Physician Family Provider Active Dr. Jacqueline Sharma MD Primary Care Provider Active Team Status: Inactive Member Role Status Dates No Primary Care Physician Primary Care Provider, Refer ring Provider Active Dr. Jacqueline Sharma MD Attending Provider Active Team Status: Inactive Member Role Status Dates No Primary Care Physician Primary Care Provider Active Dr. Jacqueline Sharma MD Attending Provider Active Team Status: Inactive Member Role Status Dates Dr. Jacqueline Sharma MD Primary Care Pro vider, Attending Provider, Referring Provider Active Team Status: Active Member Role/Relationship Status Dates No Primary Care Physician Family Provider Active Dr. Jacqueline Sharma MD Primary Care Provider Active Team Status: Inactive Member Role/Relationship Status Dates Dr. Jacqueline Sharma MD Primary Care Provider Active Start: November 04, 2024 End: November 04, 2024 Dr. Jacqueline Sharma MD Referring Provider Active Start: November 04, 2024 End: November 04, 2024 KARYNA Centeno Attending Provider Active Start: November 04, 2024 End: November 04, 2024 FOR RECORDS PERTAINING TO PATIENTS WHO ARE OR HAVE BEEN ENROLLED IN A CHEMICAL DEPENDENCY/SUBSTANCEABUSE PROGRAM, SOME INFORMATION MAY BE OMITTED. This clinical summary was aggregated from multiple sources. Caution should be exercised in using it in the provision of clinical care. This summary normalizes information from multiple sources, and as a consequence, information in this document may materially change the coding, format and clinical context of patient data. In addition, data may be omitted in some cases. CLINICAL DECISIONS SHOULD BE BASED ON THE PRIMARY CLINICAL RECORDS. [employer] provides no warranty or guarantee of the accuracy or completeness of information in this document.
== END | disposition home or self-care (01) ==
PROVIDERS: PCP Nurse Practitioner Family; Referring Provider Nurse Practitioner Family; Visit Provider Nurse Practitioner Family
DX: R10.11 Right upper quadrant pain (principal); R19.7 Diarrhea, unspecified
CPT/HCPCS: 76705

== ENCOUNTER 2024-12-30 05:59 | Day surgery (SDC) | payer MEDICAID, SELFPAY ==
--- NOTE | 2024-12-16 13:10 | EKG12_ITS ---
Test Reason : PREOP Blood Pressure : */* mmHG Vent. Rate : 66 BPM Atrial Rate : 66 BPM P-R Int : 102 ms QRS Dur : 64 ms QT Int : 412 ms P-R-T Axes : 77 90 86 degrees QTcB Int : 431 ms Sinus rhythm with short [place] Rightward axis Low voltage QRS Borderline Confirmed by Redd Prescott ([id number]), graphics editor RIZWANA VINES ([id number]) on 12/17/2024 5:50:42 AM Referred By: Vivian Sanchez Confirmed By: Redd Prescott
[2024-12-16 15:10] LABS: AST(SGOT) 20 U/L (<=31); Alanine Aminotransfer ALT/SGPT 19 U/L (<=34); Albumin, Serum 4.0 g/dL (3.5-5.0); Alkaline Phosphatase 52 U/L (35-104); Bilirubin, Direct 0.15 mg/dL (0.00-0.30); Globulin 1.8 g/dL (2.2-4.2)
--- NOTE | 2024-12-16 16:09 | PAT.ANE_ITS ---
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 When Was Last Pacemaker Check QUESTION #4 FULL TEXT: You/Your Family Experience fever (hyperthermia) with Anesthesia Last Oral Intake Last Oral intake: Last Oral Intake NPO since Meds taken in AM with sips of water? Meds patient instructed to take am of surgery PONV PONV - property management intern: PONV - property management intern Female Yes 12/16/24 08:26 HX of Motion Sickness No 12/16/24 08:26 HX of N/V After Surgery No 12/16/24 08:26 Non-Smoker No 12/16/24 08:26 Duration of Surgery greater Yes 12/16/24 08:26 than 60 minutes Number of Risk Factors 2 12/16/24 08:26 PONV Score Moderate Risk 12/16/24 08:26 Height & Weight Height & Weight: Anesthesia: Height & Weight Height 5 ft 3 in 11/25/24 10:03 Weight: 72.575 kg 11/25/24 10:03 Respiratory Assessment Respiratory Assessment - property management intern: Respiratory Tract Infection Hx - property management intern Hx Respiratory Tract Infection No 12/16/24 08:26 STOP Sleep Apnea STOP Sleep Apnea - property management intern: STOP Sleep Apnea - property management intern Hx Hypertension No 12/16/24 08:26 Hx Sleep Apnea No 12/16/24 08:26 CPAP BIPAP Do you snore loudly (louder No 12/16/24 08:26 than talking or can be heard Do you often feel tired/ No 12/16/24 08:26 fatigued/ sleepy during daytime? Has anyone observed you stop No 12/16/24 08:26 breathing during sleep? STOP Results Negative 12/16/24 08:26 QUESTION #5 FULL TEXT : Do you snore loudly (louder than talking or can be heard through closed doors)? 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 Specify any problems Hx of Preganancy in last 3 N/A 12/16/24 08:26 Months Nurse Filling Out Transfusion [facility] 12/16/24 08:26 & Questions: Date: 12/16/24 12/16/24 08:26 Time: 08:12/16/24 08:26 Patient unable to answer at this time (ie. confused, unrespo /Reproduction History /Reproductive History - property management intern: /Reproductive Hx- property management intern Hx Now No 12/16/24 08:26 Gestational Age (in weeks): EDC: Hx Hx Para Hx Section SAB No 12/16/24 08:26 Active Medications Active Medications: Current Medications Generic Name Dose Route Start Last Admin Trade Name Freq PRN Reason Stop Dose Admin Indocyanine Green 3.75 mg/ N/A 1.5 mls @ 999 mls/hr 12/30/24 09:30 IV 12/30/24 09:31 PREOP ONE PFSH Medical History (Updated 12/16/24 @ 08:31 by Mary Huitron) Wears glasses GERD (gastroesophageal reflux disease) Electronic cigarette use Anxiety Anemia Wears contact lenses Wears partial dentures Wears dentures Alcohol use Marijuana use Migraine headache History of IBS Former smoker 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 Vaginal after Home Medications ?Medication ?Instructions ?Recorded ?Last Taken ?Type acetaminophen 325 mg tablet 650 mg PO Q4H PRN Pain Unknown History (Tylenol) ibuprofen 600 mg tablet 1 tab PO Q8H PRN Pain Unknown History levonorgestrel 20.4 mcg/24 hr (up 1 device intrauterin e ONCE 08/29/22 Unknown History to 8 yrs) 52 mg intrauterine device (Liletta) omeprazole 40 mg capsule,delayed 40 mg PO QDAY #30 cap s 11/17/24 Unknown Rx release Allergy/AdvReac Type Severity Reaction Status Date / Time No Known Allergies Allergy Verified 12/16/24 08:25 Family History Mother Migraine Hypertension Grandfather Prostate cancer CVA (cerebral vascular accident) Grandmother Skin cancer Breast cancer Brother Bipolar disorder Surgical History (Updated 12/16/24 @ 08:31 by Mary Huitron) History of carpal tunnel release of both wrists History of tubal ligation Previous section Social History household members: spouse and children current occupational status: employed current occupation: [employer] Smoking Status: Current every day smoker tobacco type: cigarettes and e- cigarettes Electronic Cigarette Use: with nicotine alcohol intake: current alcohol intake frequency: holidays/special occasions only substance use type: does not use do you feel safe at home: Yes Audit: Pertinent Findings Pertinent Findings EKG Perinent findings: 01/25/2021. Sinus rhythm with short VA. Recommendation Anesthesia Recommendation Anesthesia recommendation: OPTIMIZED for anesthesia
[2024-12-30] VITALS (11 sets, daily range): BP systolic 105–114; BP diastolic 68–87; PULSE 65–80; RESP 16; TEMP 36.7–36.8; O2SAT 94–100; BMI 26.6
[2024-12-30] MEDS: Lactated Ringers 1,000 ML 15 ML IV (06:39)
[2024-12-30] MEDS: INDOCYANINE GREEN 3.75 MG in Syringe 1.5 ML 999 MG IV (06:40)
--- NOTE | 2024-12-30 06:43 | PRE.ANES_ITS ---
ASA Classification* ASA Classification ASA Classification: 2 Assessment & Plan Anesthesia* Anesthesia Assessment Anesthesia Assessment: Discussed sedation and/or anesthesia options, risks, benefits, and alternatives with patient/parents/legal guardian/POA. Questions invited. The patient/parents/legal guardian/POA seems to understand and agrees to proceed with anesthesia plan. Reviewed the physical assessment, medical history, allergy history and patient home medications list prior to surgery/procedure/anesthetic and documented any changes. Performed airway and anesthesia risk assessments. Anesthesia Type Anesthesia Type: General Anesthesia Focused Assessment* Temperature: 98.0 F Pulse Rate: 72 Blood Pressure: 110/79 Respiratory Rate: 16 Pulse Ox: 98 Airway Assessment Mouth opens: >3 cm Mallampati Score: II Labs Anesthesia Preop lab: CBC WBC, (4.4-11.0) 6.2 K/mm3 08/29/22, 11:55 RBC, (4.2-5.4) 4.23 M/mm3 08/29/22, 11:55 Hgb, (12.0-15.0) 12.5 g/dL 08/29/22, 11:55 Hct, (37-47) 38.9 % 08/29/22, 11:55 Plt Count, (150-450) 298 K/mm3 08/29/22, 11:55 CHEMISTRY Potassium, (3.5-5.1) 3.9 mmol/L 08/29/22, 11:55 Sodium, (136-145) 141 mmol/L 08/29/22, 11:55 BUN, (7-18) 6 mg/dL L 08/29/22, 11:55 Creatinine, (0.55-1.02) 0.76 mg/dL 08/29/22, 11:55 Glucose, (74-106) 94 mg/dL 08/29/22, 11:55 TSH, (0.358-3.74) 3.36 uIU/mL 08/29/22, 11:55 COAG Urine Test Negative Negative 09/20/21, 08:30 Pre-Assessment Diagnosis/Proposed Procedure Planned Operative Procedure(s): Robotic Cholecystectomy Anesthesia History 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 When Was Last Pacemaker Check QUESTION #4 FULL TEXT: You/Your Family Experience fever (hyperthermia) with Anesthesia Last Oral Intake Last Oral intake: Last Oral Intake NPO since 20:30 12/30/24 06:31 Meds taken in AM with sips of No 12/30/24 06:31 water? Meds patient instructed to take am of surgery PONV PONV - mechanical project manager: PONV - mechanical project manager Female Yes 12/16/24 08:26 HX of Motion Sickness No 12/16/24 08:26 HX of N/V After Surgery No 12/16/24 08:26 Non-Smoker No 12/16/24 08:26 Duration of Surgery greater Yes 12/16/24 08:26 than 60 minutes Number of Risk Factors 2 12/16/24 08:26 PONV Score Moderate Risk 12/16/24 08:26 Height & Weight Height & Weight: Anesthesia: Height & Weight Height 5 ft 3 in 12/30/24 06:31 Weight: 68.402 kg 12/30/24 06:31 Body Mass Index (BMI) 26.6 12/30/24 06:31 Respiratory Assessment Respiratory Assessment - mechanical project manager: Respiratory Tract Infection Hx - mechanical project manager Hx Respiratory Tract Infection No 12/16/24 08:26 STOP Sleep Apnea STOP Sleep Apnea - mechanical project manager: STOP Sleep Apnea - mechanical project manager Hx Hypertension No 12/16/24 08:26 Hx Sleep Apnea No 12/16/24 08:26 CPAP BIPAP Do you snore loudly (louder No 12/16/24 08:26 than talking or can be heard Do you often feel tired/ No 12/16/24 08:26 fatigued/ sleepy during daytime? Has anyone observed you stop No 12/16/24 08:26 breathing during sleep? STOP Results Negative 12/16/24 08:26 QUESTION #5 FULL TEXT : Do you snore loudly (louder than talking or can be heard through closed doors)? 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 Specify any problems Hx of Preganancy in last 3 N/A 12/16/24 08:26 Months Nurse Filling Out Transfusion [facility] 12/16/24 08:26 & Questions: Date: 12/16/24 12/16/24 08:26 Time: 08:27 12/16/24 08:26 Patient unable to answer at this time (ie. confused, unrespo /Reproduction History /Reproductive History - mechanical project manager: /Reproductive Hx- mechanical project manager Hx Now No 12/16/24 08:26 Gestational Age (in weeks): EDC: Hx Hx Para Hx Section SAB No 12/16/24 08:26 Active Medications Active Medications: Current Medications Generic Name Dose Route Start Last Admin Trade Name Freq PRN Reason Stop Dose Admin Indocyanine Green 3.75 mg/ N/A 1.5 mls @ 999 mls/hr 12/30/24 09:30 12/30/24 06:40 IV 12/30/24 09:31 999 mls/hr PREOP ONE Administration Cefazolin Sodium 2 gm/ Sodium 110 mls @ 200 mls/hr 12/30/24 09:30 Chloride IV 12/30/24 10:02 INTRAOP ONE Lactated Ringer's 1,000 mls @ 15 mls/hr 12/30/24 06:15 12/30/24 06:39 IV 15 mls/hr .Q48H MICHELLE Administration PFSH Medical History Wears glasses GERD (gastroesophageal reflux disease) Electronic cigarette use Anxiety Anemia Wears contact lenses Wears partial dentures Wears dentures Alcohol use Marijuana use Migraine headache History of IBS Former smoker 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 Vaginal after Home Medications ?Medication ?Instructions ?Recorded ?Last Taken ?Type acetaminophen 325 mg tablet 650 mg PO Q4H PRN Pain Unknown History (Tylenol) ibuprofen 600 mg tablet 1 tab PO Q8H PRN Pain Unknown History levonorgestrel 20.4 mcg/24 hr (up 1 device intrauterin e ONCE 08/29/22 12/30/24 History to 8 yrs) 52 mg intrauterine device (Liletta) omeprazole 40 mg capsule,delayed 40 mg PO QDAY #30 cap s 11/17/24 12/28/24 Rx release Allergy/AdvReac Type Severity Reaction Status Date / Time No Known Allergies Allergy Verified 12/30/24 06:28 Family History Mother Migraine Hypertension Grandfather Prostate cancer CVA (cerebral vascular accident) Grandmother Skin cancer Breast cancer Brother Bipolar disorder Surgical History History of carpal tunnel release of both wrists History of tubal ligation Previous section Social History household members: spouse and children current occupational status: employed current occupation: [employer] Smoking Status: Current every day smoker tobacco type: cigarettes and e- cigarettes Electronic Cigarette Use: with nicotine alcohol intake: current alcohol intake frequency: holidays/special occasions only substance use type: does not use do you feel safe at home: Yes Review of Systems (Anesthesia) ROS Narrative System reviewed and no additional complaints, except as documented.
--- NOTE | 2024-12-30 07:09 | HP.PCM.SX_ITS ---
HPI - General General Date of Service: 12/30/24 HPI Narrative LIS SANTIAGO, is a 34 F who presents for robotic cholecystectomy due to cholelithiasis and right upper quadrant pain. Patient had been taking the omeprazole states that helped with her heartburn and she does have less right upper quadrant pain change in her diet. Patient still has the bloating and the loose stools. Office visit 11/18/2024 HPI HPI: 34-year-old female presents due to abdominal pain, bloating, multiple loose bowel movements daily. Patient states she has 10+ stools a day over the last 4 to 5 months patient denies any change of diet during this time. Patient does occasionally have some right upper quadrant pain after eating as well as bloating. Patient states she does also have some nausea in the morning about 3 times a week prior to ever eating. Patient does take Tums as needed for reflux. Patient denies any change with the nausea due to food. Patient had an ultrasound of the gallbladder showed a solitary gallstone 1.7 cm x 1.4 x 1.1 normal wall no Pericholecystic fluid normal common bile duct 4 mm. [facility] Medical History Wears glasses GERD (gastroesophageal reflux disease) Electronic cigarette use Anxiety Anemia Wears contact lenses Wears partial dentures Wears dentures Alcohol use Marijuana use Migraine headache History of IBS Former smoker 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 Vaginal after Home Medications ?Medication ?Instructions ?Recorded ?Last Taken ?Type acetaminophen 325 mg tablet 650 mg PO Q4H PRN Pain Unknown History (Tylenol) ibuprofen 600 mg tablet 1 tab PO Q8H PRN Pain Unknown History levonorgestrel 20.4 mcg/24 hr (up 1 device intrauterin e ONCE 08/29/22 12/30/24 History to 8 yrs) 52 mg intrauterine device (Liletta) omeprazole 40 mg capsule,delayed 40 mg PO QDAY #30 cap s 11/17/24 12/28/24 Rx release Allergy/AdvReac Type Severity Reaction Status Date / Time No Known Allergies Allergy Verified 12/30/24 06:28 Family History Mother Migraine Hypertension Grandfather Prostate cancer CVA (cerebral vascular accident) Grandmother Skin cancer Breast cancer Brother Bipolar disorder Surgical History History of carpal tunnel release of both wrists History of tubal ligation Previous section Social History household members: spouse and children current occupational status: employed 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 Smoking Status: Current every day smoker tobacco type: cigarettes and e- cigarettes Electronic Cigarette Use: with nicotine alcohol intake: current alcohol intake frequency: holidays/special occasions only substance use type: does not use do you feel safe at home: Yes Vital Signs Vital Signs Vital Signs: 12/30/24 06:30 12/30/24 06:31 12/30/24 06:44 Temperature 98.0 F 98.0 F Temperature Source Temporal Pulse Rate 72 72 Respiratory Rate 16 16 Respiratory Pattern Normal Blood Pressure 110/79 110/79 Blood Pressure Mean 89 Blood Pressure Source Monitor Blood Pressure Position Semi-Fowlers Blood Pressure Location Left Arm Pulse Ox 98 98 Oxygen Delivery Method Room Air Weight Weight: 150 lb 12.8 oz Body Mass Index (BMI) 26.6 Physical Exam Const alert, oriented x3 and no apparent distress HEENT normocephalic and head/scalp atraumatic Resp normal respiratory effort Cardio regular rate GI soft to palpation and non-tender; Negative for non-distended GI Narrative: Umbilical hernia reducible Palpation: Negative for guarding Extremity no clubbing, cyanosis or edema Skin no rashes or lesions noted Neuro CN's II-XII intact bilaterally Psych mental status grossly normal Assessment & Plan Assessment/Plan (1) Cholelithiasis: (2) RUQ abdominal pain: (3) Umbilical hernia without obstruction and without gangrene: PLAN: Plan Reviewed the anatomy with the patient and discussed the procedure: laparoscopic cholecystectomy with possible cholangiograms, possible open, primary umbilical hernia repair. Review risks including but not limited to bleeding, infection, hernia, bile leak, retained gallstones requiring another procedure ERCP- Endoscopic Retrograde Cholangiopancreatography, injury to another organ (bile ducts, common bile duct, small bowel, etc.) and conversion to an open procedure. All questions were answered. Vivian Sanchez M.D. Pager: [phone] [facility] [address] [place] [address], [facility], [address] [place] [address] Office: [phone]
[2024-12-30] MEDS: Lactated Ringers 1,000 ML 1000 ML IV (07:30)
--- NOTE | 2024-12-30 07:30 | GALL_PTH ---
PATIENT: LIS SANTIAGO [place] [facility] [id number] AGE/SX: 34/F ROOM: RE12/30/[address]: Dr. Vivian Sanchez MD : [id number] BED: DIS: 12/30/2024 SPEC #: [id number] RECD: 12/30/24 09:15 STATUS: ARTIS CONRADO #: [id number] JOSHUA: 12/30/24 07:[address]: Vivian Sanchez DEPT: SURGICAL PATHOLOGY RECD BY: Palmira Medel ENTERED: 12/30/24 10:07 SP TYPE: AROLDO CHAUDHARI DR: KARYNA Centeno Tissues: A - Gallbladder, NOS Procedures: Surgery Specimen Level III HEADER OPERATION: Robotic cholecystectomy, umbilical hernia repair PRE-OP DIAGNOSIS: Cholelithiasis, umbilical hernia TISSUE SUBMITTED: A- Gallbladder MICROSCOPIC DIAGNOSIS A. Gallbladder, robotic cholecystectomy: * Mild chronic cholecystitis * Cholelithiasis MICROSCOPIC DESCRIPTION Slides are reviewed. GROSS DESCRIPTION A. Received in formalin labeled with the patient's name and date of . Designated as gallbladder is an 8.0 x 3.4 x 2.8 cm pink-purple, intact and distended gallbladder with attached patent cystic duct (inked black, shaved). A lymph node is not present. Opening reveals yellow-orange, tenacious bile and a 1.6 cm bile-stained, bosselated cholelith. The mucosa is red and granular with a maximum wall thickness of 0.2 cm. Cholesterolosis is not present. Core Filer sections are submitted in 1 cassette. AK 12/30/2024 CPT:15885
[2024-12-30] MEDS: Lidocaine 1% (5 ml sdv) 5 ML Vial 8 ML IV (07:35)
[2024-12-30] MEDS: Cefazolin 1 GM/5 ML Vial 2 GM IV (07:35)
[2024-12-30] MEDS: DiphenhydrAMINE 50 MG/ML Syringe 12.5 MG IV (07:43)
[2024-12-30] MEDS: fentaNYL 100 MCG/2 ML Ampul 200 MCG IV (08:06)
--- NOTE | 2024-12-30 08:40 | PCM.OPRPT ---
Operative Report (Standard) Operative Information Date of Procedure: 12/30/24 Pre-Operative Diagnosis: Cholelithiasis, right upper quadrant pain, umbilical hernia Post-Operative Diagnosis: Same Surgery/Procedure Performed: Robotic cholecystectomy with ICG, primary umbilical hernia repair with suture youth agent: Yes Raw Scales Operator: Britany Flanagan Tasks completed by medical laboratory assistant: Opening & closing Type of Anesthesia: General/Supplemental RN Documented Start/Stop Times: Operation Date: 12/30/24 07:30 Case Time Into Pre-Op 12/30/24 06:01 Out of Pre-Op 12/30/24 07:23 Anesthesia Start 12/30/24 07:30 Into Room 12/30/24 07:30 Procedure Start 12/30/24 07:47 Procedure End 12/30/24 08:50 Anesthesia End 12/30/24 08:55 Out of Room 12/30/24 08:55 Into Recovery 12/30/24 08:57 Out of Recovery 12/30/24 10:00 Into Phase II Recovery 12/30/24 10:01 Procedure Start Time: 07:47 Procedure Stop Time: 08:50 Select all DRAINS/GRAFTS/IMPLANTS that apply: None Special Medications: Ancef 2 g IV x 1 Estimated Blood Loss: < 10 cc Specimen collected: Yes Description of specimen(s) removed: Gallbladder Description of surgery: Indications: this is a 34 year-old female who developed abdominal pain/nausea/vomiting and on workup was found to have cholelithiasis, with a normal common bile duct. Laparoscopic cholecystectomy with primary umbilical hernia repair was elected. Description procedure: The patient was placed on operating table in supine position. A timeout was completed verifying correct patient, procedure, site, position and special equipment prior to beginning procedure. General Anesthesia was induced. The abdomen was prepped and draped in usual sterile fashion. An curvilinear incision was made below the umbilicus. Metzenbaum scissors used to divide the umbilical skin from the hernia sac. The fascia was elevated and incised slightly to allow for the Urban trocar. The peritoneum was elevated and incised. Entry into the peritoneum was confirmed visually and no bowel was noted in the vicinity of the incision. Urban trocar was placed. The abdomen was insufflated with carbon dioxide to a pressure of 12-15 mmHg. Patient tolerated insufflation well. The laparoscope was then inserted and abdomen inspected. No injuries from initial trocar placement were noted. Additional trochars were then inserted in the following locations 8 mm trocar left upper quadrant and 2 more 8 mm trochars in right lower quadrant and left lower quadrant. The abdomen was inspected no abnormalities were found. The table is placed in reverse Trendelenburg position with the right side up. Robot was docked. The adhesions between the gallbladder and omentum were taken down carefully. The dome of the gallbladder was grasped with atraumatic grasper passed through the lateral port and retracted over the dome of the liver. Infundibulum was then grasped with atraumatic grasper through the midclavicular port and retracted to the right lower quadrant. This maneuver exposed Calot's triangle. The peritoneum overlying the gallbladder infundibulum was then incised and cystic duct and artery identified and circumferentially dissected. ICG was used to visualize the cystic duct. The cystic duct and artery were then doubly clipped and divided close to the gallbladder. The gallbladder then dissected from its peritoneal attachments by electrocautery. Hemostasis was checked and the gallbladder was removed using the endoscopic retrieval bag through the umbilical port. The gallbladder fossa was checked and hemostasis confirmed. There is no evidence of bleeding from the gallbladder fossa or cystic artery leakage of bile from the cystic duct stump. Robot was undocked. The gallbladder is passed off table as specimen. Secondary trochars removed under direct vision. No bleeding was noted the trocar sites. The laparoscope was withdrawn and umbilical trocar removed. The abdomen was allowed to collapse. The fascia at the umbilical hernia was closed with a [id number] Nurolon suture. The skin was closed with sutures of 4-0 Monocryl and Steri-Strips. The patient was extubated. The patient tolerated procedure well and was taken to the postanesthesia care unit in stable condition. Surgical Findings: See operative report Complications Complications: No
[2024-12-30] MEDS: Bupiv/Epi 0.25% 30 ML Vial (08:42)
--- NOTE | 2024-12-30 08:43 | EX.PCM.DISCH ---
Discharge Instructions Diet Discharge Diet: Light diet - advance as tolerated Activity Discharge Activity: May Not Drive (while taking narcotic pain medications.) May shower in (days): 1 Lifting Restrictions: no lifting >20 lbs x 2 wks, no strenuous exercise for 4 wks Dressing / Incision Call your doctor if your incision/area has: Continuous Slow Oozing, Sudden Increased Bleeding, Increased Pain/ Swelling, Increased Redness, Foul Smelling Discharge and Swelling at the incision site Call your doctor if you observe: Fever of 101 or Higher Remove Dressing in: 2 days Cleanse incision/area with: Soap & Water Additional Dressing/Incision Instructions:: Steri-Strips will fall off in 7 to 10 days, if they do not fall off okay to remove after 10 days. Follow Up Care Please Follow Up With: Vivian Sanchez MD When: Call the office for a follow-up appointment 2 weeks; after 5 PM and on the weekends call [phone] with any concerns. Test Results: Test results from this visit will be discussed in further detail at your follow-up appointment, if applicable. Discharge Plan Admission Attending Provider: Vivian Sanchez Primary Care Provider: Yvonne Juárez Instructions Forms: Work Excuse Print Language: Ukrainian Discharge Orders/Prescriptions Prescriptions: New oxycodone 5 mg capsule 5 mg PO Q6H PRN (Reason: pain) 3 Days Qty: 14 0RF Continued Liletta 20.4 mcg/24 hrs (8 yrs) 52 mg intrauterine device 1 device intrauterine ONCE Rx Instructions: as a single dose omeprazole 40 mg capsule,delayed release(DR/EC) 40 mg PO QDAY Qty: 30 3RF Rx Instructions: swallow whole; do not crush, chew, dissolve, cut, break acetaminophen [Tylenol] 325 mg Tablet 650 mg PO Q4H PRN (Reason: Pain) ibuprofen 600 mg tablet 1 tab PO Q8H PRN (Reason: Pain) Other Ambulatory Orders: 12 Lead EKG (Routine) Location: None Selected Ordered By: Dr. Ricky Sarkar Referrals / Follow Up: Yvonne Juárez, [employer] [Primary Care Provider, Internal Medicine] Disposition Disposition (needs filled in before D/C Order can be placed): Home, Self Care
--- NOTE | 2024-12-30 09:10 | PCM.POST.ANE ---
Anesthesia: Postop Eval I Current Vital Signs Temperature: 98.3 F Pulse Rate: 80 Blood Pressure: 111/87 Respiratory Rate: 16 Pulse Ox: 97 Oxygen Delivery Method: Room Air Assessment Airway patent: Yes Spontaneous unlabored respirations: Yes Mental status: Awake and Calm nausea: No Vomiting: No Anesthesia Complication: No Fluid Hydration Crystalloid volume administer (ml): 1,000 Total IV fluid infused: 1,000 Progress Note Anesthesia document: Postop Eval 1 completed: No
--- NOTE | 2024-12-30 09:40 | POSTOPAN2_ITS ---
Anesthesia Postop Eval I Sum Postop Eval Completion status Anesthesia document: Postop Eval 1 completed: No Anesthesia Postop Eval I Summary Anesthesia Postop Eval I Summary: Anesthesia Postop Eval I: Assessment Summary Airway patent Yes 12/30/24 09:11 WORKING [email or web address] Spontaneous unlabored Yes 12/30/24 09:11 WORKING SUPERVISOROLMAN respirations Mental status Awake,Calm 12/30/24 09:11 WORKING [email or web address] nausea No 12/30/24 09:11 WORKING [email or web address] Vomiting No 12/30/24 09:11 WORKING SUPERVISOROLMAN Anesthesia Postop Eval I: Fluid Summary Crystalloid volume administer 1,000 12/30/24 09:11 WORKING [email or web address] (ml) Colloids volume administered ( ml) Blood Product volume administered (ml) Total IV fluid infused 1,000 12/30/24 09:11 MICHAEL Anesthesia Postop Eval I: Summary Notes Anesthesia Complication No 12/30/24 09:11 MICHAEL Anesthesia Complication Comment: Post-operative progress note Anesthesia: Postop Eval II Evaluation Mental status: Awake Pain Level: 2 nausea: No Vomiting: No
--- NOTE | 2024-12-30 09:40 | PCM.POSTANE2 ---
Anesthesia Postop Eval I Sum Postop Eval Completion status Anesthesia document: Postop Eval 1 completed: No Anesthesia Postop Eval I Summary Anesthesia Postop Eval I Summary: Anesthesia Postop Eval I: Assessment Summary Airway patent Yes 12/30/24 09:11 THERMOSTAT [email or web address] Spontaneous unlabored Yes 12/30/24 09:11 THERMOSTAT MECHANICOLMAN respirations Mental status Awake,Calm 12/30/24 09:11 THERMOSTAT [email or web address] nausea No 12/30/24 09:11 THERMOSTAT [email or web address] Vomiting No 12/30/24 09:11 THERMOSTAT MECHANICOLMAN Anesthesia Postop Eval I: Fluid Summary Crystalloid volume administer 1,000 12/30/24 09:11 THERMOSTAT [email or web address] (ml) Colloids volume administered ( ml) Blood Product volume administered (ml) Total IV fluid infused 1,000 12/30/24 09:11 MICHAEL Anesthesia Postop Eval I: Summary Notes Anesthesia Complication No 12/30/24 09:11 MICHAEL Anesthesia Complication Comment: Post-operative progress note Anesthesia: Postop Eval II Evaluation Mental status: Awake Pain Level: 2 nausea: No Vomiting: No
== END 2024-12-30 11:20 | disposition home or self-care (01) ==
LOC: SDC 06:00 → AC 06:01
PROVIDERS: PCP Nurse Practitioner Family; Referring Provider Surgery; Visit Provider Surgery
PROC: 0FT44ZZ Resection of Gallbladder, Percutaneous Endoscopic Approach (ICD-10-PCS; CPT 47562; principal; 2024-12-30 07:10)
DX: K80.10 Calculus of gallbladder with chronic cholecystitis without obstruction (principal); Z79.899 Other long term (current) drug therapy; F17.210 Nicotine dependence, cigarettes, uncomplicated; K21.9 Gastro-esophageal reflux disease without esophagitis; K42.9 Umbilical hernia without obstruction or gangrene; F17.290 Nicotine dependence, other tobacco product, uncomplicated
CPT/HCPCS: 47562; 00790; 36415; 80076; 88304; 93005; J2405